=== PATIENT | female | born 1935 | race Caucasian/White ===

== ENCOUNTER 2018-04-20 14:00 | Inpatient (IN) | payer MEDICARE, OTHER ==
[~2018-04-20] VITALS: Ht 149.9 cm; Wt 58.1 kg
[2018-04-20] MEDS ORDERED: Acetaminophen 650 MG SUPP RECTAL ONE (14:15)
[2018-04-20] MEDS ORDERED: Vancomycin 1 GM in NS 275 ML IV ONE (14:15)
--- NOTE | 2018-04-20 14:15 | Emergency Room Report ---
History of Present Illness General Chief Complaint: Altered Level of Consciousness Source: Family Member - daughter MD in [facility], EMS Present Illness HPI The patient has a history of non-Hodgkin's lymphoma and is on chemotherapy. She 's not been taking oral fluids and has been receiving IV fluids at her oncologist office. She received IV fluids and also ceftriaxone today at the oncologist office. Fever 102 last night. According to the daughter the source is presumed to be to the right otitis media. She's been unable to take oral intake today. She has decreased mentation. She's been producing urine and it' s not been cloudy. There is no cough. The patient has a history of hypertension and type 2 diabetes. Headaches treated with Tramadol and morphine 7.5 mg. Had adverse reaction to Dilaudid at [facility]. Allegedly related to lymphoma which is central ([employer]). At [facility], Pseudomonas grew from R ear. Was tx with cephalosporins. Daughter states has had pulmonary nodule on R. She had retropharyngeal radiation therapy at [facility] 2 months ago. Patient unable to answer questions regarding symptoms at this time. Allergies: Coded Allergies: No Known Allergies (Unverified , 04/20/18) Patient History Limited by: medical condition Past Medical History: see triage record, old chart reviewed Past Surgical History: other - PICC line Social History: Denies: smoking, alcohol use, drug use Social History Narrative at [facility] Reviewed Nursing Documentation: PMH: Agreed; PSxH: Agreed Review of Systems All Other Systems: limited Physical Exam Vital Signs Date Time Temp Pulse Resp B/P (MAP) Pulse Ox O2 Delivery O2 Flow Rate FiO2 04/20/18 14:07 104.5 155 30 163/82 98 Room Air 04/20/18 22:47 2.0 100 Sp02 EP Interpretation: reviewed, normal General Appearance: mild distress, Chronically Ill, Stupor Head: normocephalic, atraumatic Eyes: right eye other - patch ENT: dry mucus membranes, other - + gag, cotton R ear canal Respiratory: lungs clear, normal breath sounds, other - tachypnea Cardiovascular #1: tachycardia Cardiovascular #2: 2+ radial (R) - PICC line, 2+ radial (L) Gastrointestinal: non tender, soft, decreased bowel sounds Genitourinary: no CVA tenderness Musculoskeletal: no calf tenderness, pelvis stable Neurologic: no Babinski, motor weakness - generalized, other - stupor Psychiatric: other - stupor Reflexes: 1+ knee (R), 1+ knee (L) Skin: normal color, other - hot Medical Decision Making Diagnostic Impression: Primary Impression: Sepsis Qualified Codes: A41.9 - Sepsis, unspecified organism Additional Impressions: Lymphoma Qualified Codes: C85.90 - Non-Hodgkin lymphoma, unspecified, unspecified site Altered level of consciousness Abnormal CXR ER Course Patient presents with fever and tachycardia and altered level of consciousness. Clinically she is septic at this time we need to determine the source. She is on chemotherapy for lymphoma and therefore that differential is quite broad. She'll be evaluated with blood cultures, lactate, EKG, chest x-ray and labs including lactate. In addition a Li catheter will be passed so we can monitor I's and O's. Tylenol has been ordered and also 30 mg/kg bolus of IV fluids with aggressive hydration after that. One set of blood cultures will be drawn from line. EKG with ST 150. CXR with possible infiltrate L base (daughter said nodule on R ). WBC elevated (was 4.0 two days ago). Mild renal insufficiency. Min elevated BNP. ABG is venous as sat = 98% but by ABG = 70%. Ph is good. No resp distress. As Rocephin given in MD office, will add Vancomycin and Levaquin. 16:50 - sepsis re-evaluation: improved mentation, cap fill better, BP holding well but still tachycardic. When more alert, non-focal neurologic exam. C/O headache and morphine ordered. Continued improvement with defervescence and decreased tachycardia. Admit telemetry, Dr. Chow. Laboratory Tests Test 04/20/18 14:30 04/20/18 15:15 04/20/18 15:31 White Blood Count 12.4 K/UL (4.8-10.8) H Red Blood Count 3.44 M/UL (4.20-5.40) L Hemoglobin 10.6 G/DL (12.0-16.0) L Hematocrit 31.1 % (37.0-47.0) L Mean Corpuscular Volume 90 FL (80-99) Mean Corpuscular Hemoglobin 30.6 PG (27.0-31.0) Mean Corpuscular Hemoglobin Concent 34.0 G/DL (32.0-36.0) Red Cell Distribution Width 13.7 % (11.6-14.8) Platelet Count 188 K/UL (150-450) Mean Platelet Volume 7.1 FL (6.5-10.1) Neutrophils (%) (Auto) % (45.0-75.0) Lymphocytes (%) (Auto) % (20.0-45.0) Monocytes (%) (Auto) % (1.0-10.0) Eosinophils (%) (Auto) % (0.0-3.0) Basophils (%) (Auto) % (0.0-2.0) Differential Total Cells Counted 100 Neutrophils % (Manual) 48 % (45-75) Lymphocytes % (Manual) 5 % (20-45) L Monocytes % (Manual) 9 % (1-10) Eosinophils % (Manual) 1 % (0-3) Basophils % (Manual) 1 % (0-2) Band Neutrophils 36 % (0-8) H Platelet Estimate Adequate Platelet Morphology Normal Red Blood Cell Morphology Normal Prothrombin Time 11.1 SEC (9.30-11.50) Prothrombin Time INR 1.1 (0.9-1.1) PTT 37 SEC (23-33) H Sodium Level 137 MMOL/L (136-145) Potassium Level 3.3 MMOL/L (3.5-5.1) L Chloride Level 101 MMOL/L (98-107) Carbon Dioxide Level 23 MMOL/L (21-32) Anion Gap 14 mmol/L (5-15) Blood Urea Nitrogen 25 mg/dL (7-18) H Creatinine 1.2 MG/DL (0.55-1.30) Estimate Glomerular Filtration Rate mL/min (>60) Glucose Level 179 MG/DL (74-106) H Lactic Acid Level 1.40 mmol/L (0.4-2.0) Calcium Level 9.3 MG/DL (8.5-10.1) Magnesium Level 1.5 MG/DL (1.8-2.4) L Total Bilirubin 0.5 MG/DL (0.2-1.0) Aspartate Amino Transferase (AST) 37 U/L (15-37) Alanine Aminotransferase (ALT) 55 U/L (12-78) Alkaline Phosphatase 434 U/L (46-116) H Total Creatine Kinase 43 U/L (26-308) Troponin I 0.041 ng/mL (0.000-0.056) Pro-B-Type Natriuretic Peptide 4218 pg/mL (0-125) H Total Protein 7.4 G/DL (6.4-8.2) Albumin 2.2 G/DL (3.4-5.0) L Globulin 5.2 g/dL Albumin/Globulin Ratio 0.4 (1.0-2.7) L Urine Color Pale yellow Urine Appearance Clear Urine pH 7 (4.5-8.0) Urine Specific [place] 1.010 (1.005-1.035) Urine Protein 3+ (NEGATIVE) H Urine Glucose (UA) 2+ (NEGATIVE) H Urine Ketones Negative (NEGATIVE) Urine Blood Negative (NEGATIVE) Urine Nitrite Negative (NEGATIVE) Urine Bilirubin Negative (NEGATIVE) Urine Urobilinogen Normal MG/DL (0.0-1.0) Urine Leukocyte Esterase 1+ (NEGATIVE) H Urine RBC 0 /HPF (0 - 2) Urine WBC 5-10 /HPF (0 - 2) H Urine Squamous Epithelial Cells Occasional /LPF Urine Bacteria Occasional /HPF (NONE) Arterial Blood pH 7.427 (7.350-7.450) Arterial Blood Partial Pressure CO2 33.5 mmHg (35.0-45.0) L Arterial Blood Partial Pressure O2 37.1 mmHg (75.0-100.0) Arterial Blood HCO3 21.3 mmol/L (22.0-26.0) L Arterial Blood Oxygen Saturation 70.2 % (95-100) *L Arterial Blood Base Excess -2.2 (-2-2) L Kevin Test Positive Microbiology Date/Time Source Procedure Growth Status 04/20/18 15:15 Nasal Nares Influenza Types A,B Antigen (REMY) - Final Complete EKG Diagnostic Results Rate: tachycardiac ST Segments: no acute changes Rhythm Strip Diag. Results EP Interpretation: yes Rhythm: no PVC's, no ectopy, other - ST Chest X-Ray Diagnostic Results Chest X-Ray Diagnostic Results : Chest X-Ray Ordered: Yes # of Views/Limited/Complete: 1 View Indication: Other EP Interpretation: Yes Interpretation: no effusion, no pneumothorax, other - PICC, possible infiltrate vs effusion L base Impression: Other Electronically Signed by: Electronically signed by Demarco Booth MD Last Vital Signs Date Time Temp Pulse Resp B/P (MAP) Pulse Ox O2 Delivery O2 Flow Rate FiO2 04/21/18 00:33 117 116/66 04/21/18 00:00 98.9 18 99 04/20/18 22:47 Nasal Cannula 2.0 100 Status: improved Disposition: ADMITTED INPATIENT Condition: Serious Demarco Booth MD Apr 20, 2018 14:15
[2018-04-20] MEDS ORDERED: ERYTHROMYCIN3.5 GM BOTH EYES (14:51)
[2018-04-20] MEDS ORDERED: CALCIUM 600 +1 EAC6 PO (14:51)
[2018-04-20] MEDS ORDERED: HYDRALAZINE HCL25 M1 ORAL (14:51)
[2018-04-20] MEDS ORDERED: MULTIVITAMINS1 EAC2 ORAL (14:51)
[2018-04-20] MEDS ORDERED: TYLENOL EXTRA500 MG ORAL (14:51)
[2018-04-20] MEDS ORDERED: FERROUS SULFAT325 MG ORAL (14:51)
[2018-04-20] MEDS ORDERED: CEFEPIME-D2 GM/50 ML IVPB (14:51)
[2018-04-20] MEDS ORDERED: ACYCLOVIR400 MG ORAL (14:51)
[2018-04-20] MEDS ORDERED: METOPROLOL TART25 MG ORAL ×2 (14:51→19:19)
[2018-04-20] MEDS ORDERED: METFORMIN HCL500 M1 ORAL (14:51)
[2018-04-20] MEDS ORDERED: DICLOFENAC SODI50 MG ORAL (14:51)
[2018-04-20 15:00] VITALS: BP 128/65
[2018-04-20 15:04] LABS: HEMATOCRIT 31.1 % (37.0-47.0); HEMOGLOBIN 10.6 G/DL (12.0-16.0); MEAN CORPUSCULAR VOLUME 90 FL (80-99); PLATELET COUNT 188 K/UL (150-450); RED BLOOD COUNT 3.44 M/UL (4.20-5.40); RED CELL DISTRIBUTION WIDTH 13.7 % (11.6-14.8); WHITE BLOOD COUNT 12.4 K/UL (4.8-10.8)
[2018-04-20 15:12] LABS: INR 1.1 (0.9-1.1)
[2018-04-20 15:21] LABS: ANION GAP 14 mmol/L (5-15); BLOOD UREA NITROGEN 25 mg/dL (7-18); CALCIUM 9.3 MG/DL (8.5-10.1); CARBON DIOXIDE 23 MMOL/L (21-32); CHLORIDE 101 MMOL/L (98-107); CREATININE 1.2 MG/DL (0.55-1.30); POTASSIUM 3.3 MMOL/L (3.5-5.1); SODIUM 137 MMOL/L (136-145)
[2018-04-20 15:33] LABS: ALANINE AMINOTRANSFERASE 55 U/L (12-78); ALBUMIN 2.2 G/DL (3.4-5.0); ALBUMIN/GLOBULIN RATIO 0.4 (1.0-2.7); ALKALINE PHOSPHATASE 434 U/L (46-116); ASPARTATE AMINO TRANSFERASE 37 U/L (15-37); BILIRUBIN,TOTAL 0.5 MG/DL (0.2-1.0); CREATINE KINASE 43 U/L (26-308)
[2018-04-20 15:33] LABS: APPEARANCE,URINE CLEAR; BILIRUBIN, URINE NEGATIVE (NEGATIVE); COLOR,URINE PALE YELLOW; GLUCOSE, URINE (UA) 2+ (NEGATIVE); KETONES,URINE NEGATIVE (NEGATIVE); LEUKOCYTE ESTERASE ,URINE 1+ (NEGATIVE); NITRITE,URINE NEGATIVE (NEGATIVE); PH,URINE 7 (4.5-8.0); PROTEIN,URINE 3+ (NEGATIVE); UROBILINOGEN,URINE NORMAL MG/DL (0.0-1.0)
--- NOTE | 2018-04-20 16:06 | Diagnostic Imaging Report ---
Indication: Fevers Technique: One view of the chest Comparison: Findings: There is a right arm PICC. There is atelectasis at the left lung base. No acute infiltrates. No effusions. There is evidence of multiple prior surgeries, including right-sided rotator cuff repair, left axillary node dissection, median sternotomy, and cholecystectomy. There are degenerative changes of the left shoulder Impression: Left basilar atelectasis No acute process otherwise PICC Incidental findings as noted
[2018-04-20 17:00] VITALS: BP 114/58
[2018-04-20 18:19] VITALS: BP 127/57
[2018-04-20] MEDS ORDERED: Nitroglycerin Subl 0.4mg tab SL PRN (19:00)
[2018-04-20] MEDS ORDERED: HydrALAZINE 25mg tab ORAL PRN (19:00)
[2018-04-20] MEDS ORDERED: Albuterol/Ipratropium 3ml neb HHN PRN (19:00)
[2018-04-20] MEDS ORDERED: Morphine Sulfate 2mg/ml Inj IVP PRN (19:00)
[2018-04-20] MEDS ORDERED: Miralax 17gm pkt ORAL PRN (19:00)
[2018-04-20] MEDS ORDERED: ACETAMINOP160 MG/5 M ORAL (19:16)
[2018-04-20] MEDS ORDERED: ERYTHROMYCIN3.5 GM RIGHT EYE (19:19)
[2018-04-20] MEDS ORDERED: MAGNESIUM250 M3 PO (19:27)
[2018-04-20] MEDS ORDERED: AMLODIPINE BESY10 MG ORAL (19:27)
[2018-04-20] MEDS ORDERED: OFLOXACIN5 ML RIGHT EAR (19:27)
[2018-04-20] MEDS ORDERED: ZANTAC150 MG ORAL (19:27)
[2018-04-20] MEDS ORDERED: MILK OF MA400 MG/51 ORAL (19:27)
[2018-04-20] MEDS ORDERED: MORPHINE IR15 MG ORAL (19:27)
[2018-04-20] MEDS ORDERED: TRAMADOL HCL50 MG ORAL (19:27)
[2018-04-20] MEDS ORDERED: PREDNISONE5 M3 PO (19:27)
[2018-04-20] MEDS ORDERED: SIMVASTATIN40 MG ORAL (19:27)
[2018-04-20] MEDS ORDERED: NYSTATIN100000 UN1 ORAL (19:27)
[2018-04-20] MEDS ORDERED: MORPHINE S10 MG/5 ML ORAL (19:30)
[2018-04-20] MEDS ORDERED: Morphine Sulfate 2mg/ml Inj IVP ONE (21:45)
[2018-04-20 22:30] VITALS: BP 140/75
[2018-04-20] MEDS: NovoLOG Insulin Flexpen SUBQ SCH (22:30)
[2018-04-20] MEDS: Cefepime HCl 2 GM in D5W 110 ML IV SCH (22:30)
[2018-04-20] MEDS ORDERED: Metoprolol Tartrate 10 MG in D5W 55 ML IVPB ONE (23:00)
--- NOTE | 2018-04-20 23:10 | History & Physical ---
History and Physical History & Physicial Last 24 Hour Vital Signs Date Time Temp Pulse Resp B/P (MAP) Pulse Ox O2 Delivery O2 Flow Rate FiO2 04/20/18 18:19 133 24 127/57 99 Room Air 04/20/18 17:00 129 26 114/58 98 Room Air 04/20/18 16:34 100.9 04/20/18 15:28 100.9 04/20/18 15:00 128 30 128/65 98 Room Air 04/20/18 14:15 104.6 04/20/18 14:15 155 30 Room Air 04/20/18 14:07 104.5 155 30 163/82 98 Room Air Jaxon Chow MD Apr 20, 2018 23:10
[2018-04-21] VITALS: BP 116/66
[2018-04-21] MEDS ORDERED: Vancomycin 1 GM in D5W 275 ML IVPB SCH (00:30)
[2018-04-21] MEDS: Heparin 5000 units/ml inj SUBQ SCH ×2 (00:32→08:45)
[2018-04-21] MEDS: Cefepime HCl 2 GM in D5W 110 ML IV SCH (00:33)
[2018-04-21 04:00] VITALS: BP 132/65
--- NOTE | 2018-04-21 04:01 | History and Physical Report ---
DATE OF ADMISSION: 04/20/2018 CHIEF COMPLAINT: Fever and chills. 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 intake, fever, and chills. The patient went to see oncologist, Dr. Adler and was noted to be very dehydrated, IV hydration was started. A dose of ceftriaxone was given. While the patient was in the office, she started having a fever of 102 degrees and chills, and subsequently, the patient was transferred to the hospital. Shortly after initial evaluation in the emergency, the patient was admitted to hospital with sepsis. PAST MEDICAL HISTORY AND PAST SURGICAL HISTORY: As above. History of diabetes type 2; hypertension; non-Hodgkin lymphoma, status post three rounds of chemotherapy and one round of radiation therapy; history of right laryngeal lymph nodes, status post resection with a history of Hilario palsy; recent Pseudomonas otitis media; viral infection; and aortic wall replacement in 2010. The patient has a history of right upper extremity PAS port placement. MEDICATIONS AT HOME: Please refer to medication reconciliation. ALLERGIES: No known drug allergies. SOCIAL HISTORY: No smoking, alcohol, or drugs. FAMILY HISTORY: Noncontributory. REVIEW OF SYSTEMS: Mostly as above. Complained about fever, chills, lack of poor appetite, weakness, and fatigue. Denies any double vision. Denies any fall or head trauma. PHYSICAL EXAMINATION: VITAL SIGNS: On admission from the ER is temperature 100.9 degrees, pulse of 128, respirations 30, and blood pressure 128/65, repeat one was 127/57. GENERAL: The patient is cachectic. The patient has chronic illness. HEAD AND NECK: Pupils are reactive to light. Right side of face, she has Hilario palsy. NECK: Supple. No JVD. LUNGS: Good air entry. Poor inspiratory effort. No wheeze or rhonchi. HEART: S1 and S2. Tachycardic. ABDOMEN: Soft, nondistended, and nontender. Positive bowel sounds. EXTREMITIES: No cyanosis, clubbing, or edema. Right upper extremity PAS port was noted. NEUROLOGIC: Cranial nerves II through XII grossly intact. The patient is moving all extremities spontaneously slowly. RECTAL: Refused and deferred. GENITOURINARY: Refused and deferred. PSYCHIATRIC: Mood and affect were not able to obtain due to the patient's status. LABORATORY AND IMAGING ON ADMISSION: WBC of 12, hemoglobin 10.6, hematocrit 31, and platelets 188,000. Sodium 137, potassium 3.3, chloride 101, bicarbonate 23, BUN 25, creatinine 1.2, and glucose is 179. Lactic acid is 1.4. Magnesium is 1.5. Alkaline phosphatase is 434. Troponin 0.041. PT of 11, INR 1.1, and PTT of 27. ABG, pH of 7.42, pCO2 of 33, pO2 of 21, and saturating 70%. Urinalysis, +3 protein, +2 glucose, +1 leukocytes, occasional squamous epithelial, and 5 to 10 rbc. Rapid influenza A and B is negative. The patient's chest x-ray noted to have the left basilar atelectasis. No acute process otherwise. PICC line was noted. Atelectasis in left lung. EKG was noted to be supraventricular tachycardia and ventricular rate of 151 with occasional PVCs. No ST-elevation was noted. Nonspecific T-wave abnormality. ASSESSMENT: 1. Sepsis. 2. Dehydration. 3. Tachycardia. 4. Non-Hodgkin lymphoma. 5. Diabetes type 2. 6. Hypertension. 7. Anemia. 8. History of right-sided Hilario palsy. PLAN: Admit the patient to telemetry. We will follow up with the laboratory, culture, and broad-spectrum antibiotic with vancomycin and cefepime. Discussion with the daughter extensively at bedside. We will follow up with [facility] records. Code status, Full Code. DVT prophylaxis. Heparin, subcu. Follow up with Dr. Negron, Pulmonary, Critical Care, and Infectious Disease consultation in the morning. Jaxon Chow M.D. DR: SEBASTIEN JOB#: [id number] CC:
[2018-04-21 05:25] LABS: BASOPHILS % (AUTO) 2.6 % (0.0-2.0); EOSINOPHILS % (AUTO) 0.1 % (0.0-3.0); HEMATOCRIT 26.4 % (37.0-47.0); HEMOGLOBIN 8.9 G/DL (12.0-16.0); LYMPHOCYTES % (AUTO) 6.7 % (20.0-45.0); MEAN CORPUSCULAR VOLUME 91 FL (80-99); MONOCYTES % (AUTO) 18.2 % (1.0-10.0); NEUTROPHILS % (AUTO) 72.4 % (45.0-75.0); PLATELET COUNT 137 K/UL (150-450); WHITE BLOOD COUNT 13.1 K/UL (4.8-10.8)
[2018-04-21 06:05] LABS: ALANINE AMINOTRANSFERASE 40 U/L (12-78); ALBUMIN 1.7 G/DL (3.4-5.0); ALBUMIN/GLOBULIN RATIO 0.4 (1.0-2.7); ALKALINE PHOSPHATASE 316 U/L (46-116); ANION GAP 12 mmol/L (5-15); ASPARTATE AMINO TRANSFERASE 22 U/L (15-37); BILIRUBIN,TOTAL 0.4 MG/DL (0.2-1.0); BLOOD UREA NITROGEN 21 mg/dL (7-18); CALCIUM 8.2 MG/DL (8.5-10.1); CARBON DIOXIDE 20 MMOL/L (21-32); CHLORIDE 106 MMOL/L (98-107); CREATININE 1.1 MG/DL (0.55-1.30); POTASSIUM 2.8 MMOL/L (3.5-5.1); SODIUM 137 MMOL/L (136-145)
[2018-04-21] MEDS: NovoLOG Insulin Flexpen SUBQ SCH ×6 (06:26→21:00)
[2018-04-21 06:42] LABS: PHOSPHORUS 2.9 MG/DL (2.5-4.9)
[2018-04-21 08:00] VITALS: BP 134/63
[2018-04-21] MEDS ORDERED: Metoprolol 25mg tab ORAL SCH (09:00)
--- NOTE | 2018-04-21 11:10 | Consultation ---
History of Present Illness General Date patient seen: Apr 21, 2018 Chief Complaint: Altered Level of Consciousness Present Illness HPI 83 year old lady with history of hypertension and type 2 diabetes, CAD, non- Hodgkin's lymphoma on chemotherapy and retropharyngeal radiation therapy at [facility] 2 months ago, presented to ER with Fever of 102 last night. According to the daughter the source is presumed to be to the right otitis media. She's been unable to take anything oral. She has decreased mentation. She's been producing urine and it's not been cloudy. There is no cough. Patient was hypotensive and was started on IV abx and IV fluid and transferred to [facility]. Allergies: Coded Allergies: No Known Allergies (Unverified , 04/20/18) Medication History Scheduled Acyclovir* (Acyclovir*), 400 MG ORAL DAILY, (Reported) Erythromycin Base (Erythromycin*), 1 APPLIC RIGHT EYE DAILY, (Reported) Magnesium (Magnesium), 250 MG PO DAILY, (Reported) Metformin Hcl* (Metformin Hcl*), 500 MG ORAL TWICE A DAY, (Reported) Nystatin* (Nystatin*), 4 ML ORAL TID, (Reported) Ofloxacin (Ofloxacin), 2 DROP RIGHT EAR DAILY, (Reported) Prednisone (Prednisone), 5 MG PO DAILY, (Reported) Ranitidine Hcl* (Zantac*), 300 MG ORAL QPM, (Reported) Simvastatin (Zocor), 40 MG ORAL BEDTIME, (Reported) Scheduled PRN Acetaminophen 160MG/5ML* (Acetaminophen*), 500 MG ORAL Q6HR PRN for Mild Pain ( Pain Scale 1-3), (Reported) Amlodipine Besylate* (Amlodipine Besylate*), 10 MG ORAL DAILY PRN for BP>140, ( Reported) Diclofenac Sod* (Voltaren*), 50 MG ORAL THREE TIMES A DAY PRN for For Pain, ( Reported) Hydralazine Hcl* (Hydralazine Hcl*), 25 MG ORAL EVERY 8 HOURS PRN for For High Blood Pressure, (Reported) Magnesium Hydroxide* (Milk Of Magnesia*), 30 ML ORAL DAILY PRN for Constipation, (Reported) Metoprolol Tartrate* (Metoprolol Tartrate*), 12.5 MG ORAL TID PRN for pulse>110, (Reported) Morphine 10mg/5ml Oral Soln* (Morphine 10mg/5ml Oral Soln*), 7.5 MG ORAL Q6HR PRN for For Pain, (Reported) Morphine HCl (Morphine Sulfate ER), 7.5 MG ORAL Q6H PRN for Severe Pain (Pain Scale 7-10), (Reported) Tramadol Hcl* (Ultram*), 50 MG ORAL Q6H PRN for Moderate Pain (Pain Scale 4-6), (Reported) Miscellaneous Medications Calcium Carbonate/Vitamin D3 (Calcium 600 + Vit D 400 Tablet), 1 EACH PO, ( Reported) Discontinued Medications Cefepime Hcl/D5w (Cefepime-Dextrose 2 Gm/50 Ml), 2 GM IVPB Q24H, (Reported) Discontinued Reason: MD discontinued med Ferrous Sulfate* (Ferrous Sulfate*), 325 MG ORAL DAILY, (Reported) Discontinued Reason: Pt stopped taking med Multivitamins* (Multivitamins*), 1 TAB ORAL DAILY, (Reported) Discontinued Reason: Pt stopped taking med Patient History Healthcare decision maker KYARA ESPINAL Resuscitation status Full Code Advanced Directive on File No Past Medical/Surgical History Past Medical/Surgical History: (1) CAD (coronary artery disease) (2) Diabetes mellitus (3) History of hypertension Review of Systems Constitutional: Reports: malaise, weakness Physical Exam General Appearance: cachetic Lines, tubes and drains: peripheral HEENT: normocephalic, atraumatic Neck: non-tender, normal alignment Respiratory/Chest: chest wall non-tender, lungs clear Abdomen: normal bowel sounds, non tender Genitourinary/Rectal: normal rectal exam, heme negative stool Extremities: normal range of motion Skin Exam: normal pigmentation Last 24 Hour Vital Signs Date Time Temp Pulse Resp B/P (MAP) Pulse Ox O2 Delivery O2 Flow Rate FiO2 04/21/18 08:46 104 134/63 04/21/18 08:00 98.2 20 134/63 (86) 96 04/21/18 08:00 109 04/21/18 04:00 96 04/21/18 04:00 Room Air 04/21/18 04:00 99.2 112 16 132/65 (87) 98 04/21/18 00:33 117 116/66 04/21/18 00:00 120 04/21/18 00:00 98.9 117 18 116/66 (83) 99 04/20/18 23:18 124 04/20/18 22:47 129 28 113/56 99 Nasal Cannula 2.0 100 04/20/18 22:30 99.1 131 20 140/75 (96) 99 04/20/18 22:30 Room Air 04/20/18 18:19 133 24 127/57 99 Room Air 04/20/18 17:00 129 26 114/58 98 Room Air 04/20/18 16:34 100.9 04/20/18 15:28 100.9 04/20/18 15:00 128 30 128/65 98 Room Air 04/20/18 14:15 104.6 04/20/18 14:15 155 30 Room Air 04/20/18 14:07 104.5 155 30 163/82 98 Room Air Intake and Output 04/20/18 04/21/18 19:00 07:00 Intake Total 2425 ml 1385.0 ml Output Total 150 ml Balance 2425 ml 1235.0 ml Intake Oral 0 ml IV Total 2425 ml 1385.0 ml Output Urine Total 150 ml # Voids 1 2 # Bowel Movements 1 Laboratory Tests Test 04/20/18 14:30 04/20/18 15:15 04/20/18 15:31 04/21/18 03:25 White Blood Count 12.4 K/UL (4.8-10.8) H 13.1 K/UL (4.8-10.8) H Red Blood Count 3.44 M/UL (4.20-5.40) L 2.90 M/UL (4.20-5.40) L Hemoglobin 10.6 G/DL (12.0-16.0) L 8.9 G/DL (12.0-16.0) L Hematocrit 31.1 % (37.0-47.0) L 26.4 % (37.0-47.0) L Mean Corpuscular Volume 90 FL (80-99) 91 FL (80-99) Mean Corpuscular Hemoglobin 30.6 PG (27.0-31.0) 30.9 PG (27.0-31.0) Mean Corpuscular Hemoglobin Concent 34.0 G/DL (32.0-36.0) 33.9 G/DL (32.0-36.0) Red Cell Distribution Width 13.7 % (11.6-14.8) 14.0 % (11.6-14.8) Platelet Count 188 K/UL (150-450) 137 K/UL (150-450) L Mean Platelet Volume 7.1 FL (6.5-10.1) 8.5 FL (6.5-10.1) Neutrophils (%) (Auto) % (45.0-75.0) 72.4 % (45.0-75.0) Lymphocytes (%) (Auto) % (20.0-45.0) 6.7 % (20.0-45.0) L Monocytes (%) (Auto) % (1.0-10.0) 18.2 % (1.0-10.0) H Eosinophils (%) (Auto) % (0.0-3.0) 0.1 % (0.0-3.0) Basophils (%) (Auto) % (0.0-2.0) 2.6 % (0.0-2.0) H Differential Total Cells Counted 100 Neutrophils % (Manual) 48 % (45-75) Lymphocytes % (Manual) 5 % (20-45) L Monocytes % (Manual) 9 % (1-10) Eosinophils % (Manual) 1 % (0-3) Basophils % (Manual) 1 % (0-2) Band Neutrophils 36 % (0-8) H Platelet Estimate Adequate Platelet Morphology Normal Red Blood Cell Morphology Normal Prothrombin Time 11.1 SEC (9.30-11.50) Prothromb Time International Ratio 1.1 (0.9-1.1) Activated Partial Thromboplast Time 37 SEC (23-33) H Sodium Level 137 MMOL/L (136-145) 137 MMOL/L (136-145) Potassium Level 3.3 MMOL/L (3.5-5.1) L 2.8 MMOL/L (3.5-5.1) L Chloride Level 101 MMOL/L (98-107) 106 MMOL/L (98-107) Carbon Dioxide Level 23 MMOL/L (21-32) 20 MMOL/L (21-32) L Anion Gap 14 mmol/L (5-15) 12 mmol/L (5-15) Blood Urea Nitrogen 25 mg/dL (7-18) H 21 mg/dL (7-18) H Creatinine 1.2 MG/DL (0.55-1.30) 1.1 MG/DL (0.55-1.30) Estimat Glomerular Filtration Rate mL/min (>60) mL/min (>60) Glucose Level 179 MG/DL (74-106) H 154 MG/DL (74-106) H Lactic Acid Level 1.40 mmol/L (0.4-2.0) Calcium Level 9.3 MG/DL (8.5-10.1) 8.2 MG/DL (8.5-10.1) L Magnesium Level 1.5 MG/DL (1.8-2.4) L 1.3 MG/DL (1.8-2.4) L Total Bilirubin 0.5 MG/DL (0.2-1.0) 0.4 MG/DL (0.2-1.0) Aspartate Amino Transf (AST/SGOT) 37 U/L (15-37) 22 U/L (15-37) Alanine Aminotransferase (ALT/SGPT) 55 U/L (12-78) 40 U/L (12-78) Alkaline Phosphatase 434 U/L (46-116) H 316 U/L (46-116) H Total Creatine Kinase 43 U/L (26-308) Troponin I 0.041 ng/mL (0.000-0.056) 0.068 ng/mL (0.000-0.056) Pro-B-Type Natriuretic Peptide 4218 pg/mL (0-125) H Total Protein 7.4 G/DL (6.4-8.2) 6.0 G/DL (6.4-8.2) L Albumin 2.2 G/DL (3.4-5.0) L 1.7 G/DL (3.4-5.0) L Globulin 5.2 g/dL 4.3 g/dL Albumin/Globulin Ratio 0.4 (1.0-2.7) L 0.4 (1.0-2.7) L Urine Color Pale yellow Urine Appearance Clear Urine pH 7 (4.5-8.0) Urine Specific [place] 1.010 (1.005-1.035) Urine Protein 3+ (NEGATIVE) H Urine Glucose (UA) 2+ (NEGATIVE) H Urine Ketones Negative (NEGATIVE) Urine Blood Negative (NEGATIVE) Urine Nitrite Negative (NEGATIVE) Urine Bilirubin Negative (NEGATIVE) Urine Urobilinogen Normal MG/DL (0.0-1.0) Urine Leukocyte Esterase 1+ (NEGATIVE) H Urine RBC 0 /HPF (0 - 2) Urine WBC 5-10 /HPF (0 - 2) H Urine Squamous Epithelial Cells Occasional /LPF Urine Bacteria Occasional /HPF (NONE) Arterial Blood pH 7.427 (7.350-7.450) Arterial Blood Partial Pressure CO2 33.5 mmHg (35.0-45.0) L Arterial Blood Partial Pressure O2 37.1 mmHg (75.0-100.0) Arterial Blood HCO3 21.3 mmol/L (22.0-26.0) L Arterial Blood Oxygen Saturation 70.2 % (95-100) *L Arterial Blood Base Excess -2.2 (-2-2) L Kevin Test Positive Phosphorus Level 2.9 MG/DL (2.5-4.9) Microbiology Date/Time Source Procedure Growth Status 04/20/18 15:15 Nasal Nares Influenza Types A,B Antigen (REMY) - Final Complete 04/20/18 15:15 Indwelling Cath Urine Culture - Preliminary NO GROWTH Resulted 04/20/18 16:20 Ear Right Ear Culture - Preliminary NO GROWTH AFTER 48 HOURS Resulted 04/20/18 15:00 Rectum VRE Culture Pending Resulted 04/20/18 15:00 Rectum - Preliminary Resulted Height (Feet): 4 Height (Inches): 11.00 Weight (Pounds): 130 Medications Current Medications Medications (Trade) Dose Ordered Sig/Ibrahima Route PRN Reason Start Time Stop Time Status Last Admin Dose Admin Acetaminophen (Tylenol) 650 mg Q4H PRN ORAL fever (temp>100.5 F) 04/20/18 19:00 05/20/18 18:59 Albuterol/ Ipratropium (Albuterol/ Ipratropium) 3 ml Q4H PRN HHN Shortness of Breath 04/20/18 19:00 04/25/18 18:59 Cefepime HCl 2 gm/ Dextrose 110 ml @ 220 mls/hr EVERY 12 HOURS IV 04/20/18 21:00 04/27/18 20:59 04/21/18 00:33 Dextrose (Dextrose 50%) 25 ml Q30M PRN IV Hypoglycemia 04/20/18 19:15 05/20/18 19:00 Dextrose (Dextrose 50%) 50 ml Q30M PRN IV hypoglycemia 04/20/18 19:15 05/20/18 19:14 Hydralazine HCl (Apresoline) 25 mg Q8H PRN ORAL For High Blood Pressure 04/20/18 19:00 05/20/18 18:59 Insulin Aspart (NovoLOG) BEFORE MEALS AND HS SUBQ 04/20/18 21:00 05/20/18 20:59 Insulin Aspart (NovoLOG) BEFORE MEALS AND HS SUBQ 04/21/18 06:30 05/21/18 06:29 Metoprolol Tartrate (Lopressor) 25 mg Q12HR ORAL 04/21/18 09:00 05/21/18 08:59 Morphine Sulfate (Morphine Sulfate) 2 mg Q4H PRN IVP Moderate Pain (Pain Scale 4-6) 04/20/18 19:00 04/27/18 18:59 Nitroglycerin (Ntg) 0.4 mg Q5M PRN SL Prn Chest Pain 04/20/18 19:00 05/20/18 18:59 Ondansetron HCl (Zofran) 4 mg Q6H PRN IVP Nausea & Vomiting 04/20/18 19:00 05/20/18 18:59 Polyethylene Glycol (Miralax) 17 gm DAILYPRN PRN ORAL Constipation 04/20/18 19:00 05/20/18 18:59 Potassium Chloride 100 ml @ 100 mls/hr Q1H IVPB 04/21/18 09:00 04/21/18 12:59 04/21/18 10:32 Sodium Chloride 1,000 ml @ 300 mls/hr Q3H20M IV 04/20/18 14:15 05/20/18 14:14 04/20/18 17:57 Temazepam (Restoril) 15 mg HSPRN PRN ORAL Insomnia 04/20/18 19:00 04/27/18 18:59 Vancomycin HCl (Vanco rx to dose) 1 ea DAILY PRN MISC PER PHARM 04/21/18 07:15 05/21/18 07:14 Vancomycin/Sodium Chloride 250 ml @ 166.667 mls/hr Q24H IVPB 04/22/18 02:00 04/27/18 01:59 Assessment/Plan Problem List: (1) Septic shock ICD Codes: A41.9 - Sepsis, unspecified organism; R65.21 - Severe sepsis with septic shock SNOMED: 05104955 (2) Non-Hodgkin lymphoma ICD Codes: C85.90 - Non-Hodgkin lymphoma, unspecified, unspecified site SNOMED: 145493234 (3) History of hypertension ICD Codes: Z86.79 - Personal history of other diseases of the circulatory system SNOMED: 078753042 (4) CAD (coronary artery disease) ICD Codes: I25.10 - Atherosclerotic heart disease of [place] coronary artery without angina pectoris SNOMED: 56613516 (5) Diabetes mellitus ICD Codes: E11.9 - Type 2 diabetes mellitus without complications SNOMED: 84684859 Assessment/Plan IV fluids IV abx bose culture ID evaluation sliding scale K supplement dvt prophylaxis echo cardio to see. Ge Negron MD Apr 21, 2018 11:10
[2018-04-21 12:00] VITALS: BP 149/73
--- NOTE | 2018-04-21 13:35 | Consultation ---
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 Upon admission patient was hypotensive and admitted to [facility]; BP responded with IVFs. Day of admission patient was seen by oncologist, given Ceftriaxone and also reported + blood culture. No cough After receiving 2st chemo patietn then had complication with Pseudomonas otitis media and received 3 weeks of IV Cefepime (end date 03/06) 3rd chemo was received on 03/11 and patient was admitted to [facility] from 03/29- for viral URI. 2 days prior to admission, pt visited his ENT doctor and was noticee had increased discharge from R ear and Rx ofloxacin 0.3% bid for 7 days; patient only took one day. . Allergies: Coded Allergies: No Known Allergies (Unverified , 04/20/18) Medication History Scheduled Acyclovir* (Acyclovir*), 400 MG ORAL DAILY, (Reported) Erythromycin Base (Erythromycin*), 1 APPLIC RIGHT EYE DAILY, (Reported) Magnesium (Magnesium), 250 MG PO DAILY, (Reported) Metformin Hcl* (Metformin Hcl*), 500 MG ORAL TWICE A DAY, (Reported) Nystatin* (Nystatin*), 4 ML ORAL TID, (Reported) Ofloxacin (Ofloxacin), 2 DROP RIGHT EAR DAILY, (Reported) Prednisone (Prednisone), 5 MG PO DAILY, (Reported) Ranitidine Hcl* (Zantac*), 300 MG ORAL QPM, (Reported) Simvastatin (Zocor), 40 MG ORAL BEDTIME, (Reported) Scheduled PRN Acetaminophen 160MG/5ML* (Acetaminophen*), 500 MG ORAL Q6HR PRN for Mild Pain ( Pain Scale 1-3), (Reported) Amlodipine Besylate* (Amlodipine Besylate*), 10 MG ORAL DAILY PRN for BP>140, ( Reported) Diclofenac Sod* (Voltaren*), 50 MG ORAL THREE TIMES A DAY PRN for For Pain, ( Reported) Hydralazine Hcl* (Hydralazine Hcl*), 25 MG ORAL EVERY 8 HOURS PRN for For High Blood Pressure, (Reported) Magnesium Hydroxide* (Milk Of Magnesia*), 30 ML ORAL DAILY PRN for Constipation, (Reported) Metoprolol Tartrate* (Metoprolol Tartrate*), 12.5 MG ORAL TID PRN for pulse>110, (Reported) Morphine 10mg/5ml Oral Soln* (Morphine 10mg/5ml Oral Soln*), 7.5 MG ORAL Q6HR PRN for For Pain, (Reported) Morphine HCl (Morphine Sulfate ER), 7.5 MG ORAL Q6H PRN for Severe Pain (Pain Scale 7-10), (Reported) Tramadol Hcl* (Ultram*), 50 MG ORAL Q6H PRN for Moderate Pain (Pain Scale 4-6), (Reported) Miscellaneous Medications Calcium Carbonate/Vitamin D3 (Calcium 600 + Vit D 400 Tablet), 1 EACH PO, ( Reported) Discontinued Medications Cefepime Hcl/D5w (Cefepime-Dextrose 2 Gm/50 Ml), 2 GM IVPB Q24H, (Reported) Discontinued Reason: MD discontinued med Ferrous Sulfate* (Ferrous Sulfate*), 325 MG ORAL DAILY, (Reported) Discontinued Reason: Pt stopped taking med Multivitamins* (Multivitamins*), 1 TAB ORAL DAILY, (Reported) Discontinued Reason: Pt stopped taking med Patient History Healthcare decision maker KYARA ESPINAL Resuscitation status Full Code Advanced Directive on File No Patient History Narrative Pmhx: as above Shx: No smoking, alcohol, or drugs. Fhx: non contributory Review of Systems All Other Systems: negative except mentioned in HPI Physical Exam Physical Exam Narrative GENERAL: The patient is cachectic. The patient has chronic illness. HEAD AND NECK: Pupils are reactive to light. Right side of face, she has Hilario palsy. R ear with minimal yellowish drainage NECK: Supple. No JVD. LUNGS: Good air entry. Poor inspiratory effort. No wheeze or rhonchi. HEART: S1 and S2. Tachycardic. ABDOMEN: Soft, nondistended, and nontender. Positive bowel sounds. EXTREMITIES: No cyanosis, clubbing, or edema. Right upper extremity PAS port was noted. NEUROLOGIC: Cranial nerves II through XII grossly intact. The patient is moving all extremities spontaneously slowly. Last 24 Hour Vital Signs Date Time Temp Pulse Resp B/P (MAP) Pulse Ox O2 Delivery O2 Flow Rate FiO2 04/21/18 12:00 Room Air 04/21/18 12:00 98.4 116 20 149/73 (98) 96 04/21/18 11:52 116 04/21/18 08:46 104 134/63 04/21/18 08:00 98.2 20 134/63 (86) 96 04/21/18 08:00 109 04/21/18 08:00 Room Air 04/21/18 04:00 96 04/21/18 04:00 Room Air 04/21/18 04:00 99.2 112 16 132/65 (87) 98 04/21/18 00:33 117 116/66 04/21/18 00:00 120 04/21/18 00:00 98.9 117 18 116/66 (83) 99 04/20/18 23:18 124 04/20/18 22:47 129 28 113/56 99 Nasal Cannula 2.0 100 04/20/18 22:30 99.1 131 20 140/75 (96) 99 04/20/18 22:30 Room Air 04/20/18 18:19 133 24 127/57 99 Room Air 04/20/18 17:00 129 26 114/58 98 Room Air 04/20/18 16:34 100.9 04/20/18 15:28 100.9 04/20/18 15:00 128 30 128/65 98 Room Air 04/20/18 14:15 104.6 04/20/18 14:15 155 30 Room Air 04/20/18 14:07 104.5 155 30 163/82 98 Room Air Intake and Output 04/20/18 04/21/18 19:00 07:00 Intake Total 2425 ml 1385.0 ml Output Total 150 ml Balance 2425 ml 1235.0 ml Intake Oral 0 ml IV Total 2425 ml 1385.0 ml Output Urine Total 150 ml # Voids 1 2 # Bowel Movements 1 Laboratory Tests Test 04/20/18 14:30 04/20/18 15:15 04/20/18 15:31 04/21/18 03:25 White Blood Count 12.4 K/UL (4.8-10.8) H 13.1 K/UL (4.8-10.8) H Red Blood Count 3.44 M/UL (4.20-5.40) L 2.90 M/UL (4.20-5.40) L Hemoglobin 10.6 G/DL (12.0-16.0) L 8.9 G/DL (12.0-16.0) L Hematocrit 31.1 % (37.0-47.0) L 26.4 % (37.0-47.0) L Mean Corpuscular Volume 90 FL (80-99) 91 FL (80-99) Mean Corpuscular Hemoglobin 30.6 PG (27.0-31.0) 30.9 PG (27.0-31.0) Mean Corpuscular Hemoglobin Concent 34.0 G/DL (32.0-36.0) 33.9 G/DL (32.0-36.0) Red Cell Distribution Width 13.7 % (11.6-14.8) 14.0 % (11.6-14.8) Platelet Count 188 K/UL (150-450) 137 K/UL (150-450) L Mean Platelet Volume 7.1 FL (6.5-10.1) 8.5 FL (6.5-10.1) Neutrophils (%) (Auto) % (45.0-75.0) 72.4 % (45.0-75.0) Lymphocytes (%) (Auto) % (20.0-45.0) 6.7 % (20.0-45.0) L Monocytes (%) (Auto) % (1.0-10.0) 18.2 % (1.0-10.0) H Eosinophils (%) (Auto) % (0.0-3.0) 0.1 % (0.0-3.0) Basophils (%) (Auto) % (0.0-2.0) 2.6 % (0.0-2.0) H Differential Total Cells Counted 100 Neutrophils % (Manual) 48 % (45-75) Lymphocytes % (Manual) 5 % (20-45) L Monocytes % (Manual) 9 % (1-10) Eosinophils % (Manual) 1 % (0-3) Basophils % (Manual) 1 % (0-2) Band Neutrophils 36 % (0-8) H Platelet Estimate Adequate Platelet Morphology Normal Red Blood Cell Morphology Normal Prothrombin Time 11.1 SEC (9.30-11.50) Prothromb Time International Ratio 1.1 (0.9-1.1) Activated Partial Thromboplast Time 37 SEC (23-33) H Sodium Level 137 MMOL/L (136-145) 137 MMOL/L (136-145) Potassium Level 3.3 MMOL/L (3.5-5.1) L 2.8 MMOL/L (3.5-5.1) L Chloride Level 101 MMOL/L (98-107) 106 MMOL/L (98-107) Carbon Dioxide Level 23 MMOL/L (21-32) 20 MMOL/L (21-32) L Anion Gap 14 mmol/L (5-15) 12 mmol/L (5-15) Blood Urea Nitrogen 25 mg/dL (7-18) H 21 mg/dL (7-18) H Creatinine 1.2 MG/DL (0.55-1.30) 1.1 MG/DL (0.55-1.30) Estimat Glomerular Filtration Rate mL/min (>60) mL/min (>60) Glucose Level 179 MG/DL (74-106) H 154 MG/DL (74-106) H Lactic Acid Level 1.40 mmol/L (0.4-2.0) Calcium Level 9.3 MG/DL (8.5-10.1) 8.2 MG/DL (8.5-10.1) L Magnesium Level 1.5 MG/DL (1.8-2.4) L 1.3 MG/DL (1.8-2.4) L Total Bilirubin 0.5 MG/DL (0.2-1.0) 0.4 MG/DL (0.2-1.0) Aspartate Amino Transf (AST/SGOT) 37 U/L (15-37) 22 U/L (15-37) Alanine Aminotransferase (ALT/SGPT) 55 U/L (12-78) 40 U/L (12-78) Alkaline Phosphatase 434 U/L (46-116) H 316 U/L (46-116) H Total Creatine Kinase 43 U/L (26-308) Troponin I 0.041 ng/mL (0.000-0.056) 0.068 ng/mL (0.000-0.056) Pro-B-Type Natriuretic Peptide 4218 pg/mL (0-125) H Total Protein 7.4 G/DL (6.4-8.2) 6.0 G/DL (6.4-8.2) L Albumin 2.2 G/DL (3.4-5.0) L 1.7 G/DL (3.4-5.0) L Globulin 5.2 g/dL 4.3 g/dL Albumin/Globulin Ratio 0.4 (1.0-2.7) L 0.4 (1.0-2.7) L Urine Color Pale yellow Urine Appearance Clear Urine pH 7 (4.5-8.0) Urine Specific Opp 1.010 (1.005-1.035) Urine Protein 3+ (NEGATIVE) H Urine Glucose (UA) 2+ (NEGATIVE) H Urine Ketones Negative (NEGATIVE) Urine Blood Negative (NEGATIVE) Urine Nitrite Negative (NEGATIVE) Urine Bilirubin Negative (NEGATIVE) Urine Urobilinogen Normal MG/DL (0.0-1.0) Urine Leukocyte Esterase 1+ (NEGATIVE) H Urine RBC 0 /HPF (0 - 2) Urine WBC 5-10 /HPF (0 - 2) H Urine Squamous Epithelial Cells Occasional /LPF Urine Bacteria Occasional /HPF (NONE) Arterial Blood pH 7.427 (7.350-7.450) Arterial Blood Partial Pressure CO2 33.5 mmHg (35.0-45.0) L Arterial Blood Partial Pressure O2 37.1 mmHg (75.0-100.0) Arterial Blood HCO3 21.3 mmol/L (22.0-26.0) L Arterial Blood Oxygen Saturation 70.2 % (95-100) *L Arterial Blood Base Excess -2.2 (-2-2) L Kevin Test Positive Phosphorus Level 2.9 MG/DL (2.5-4.9) Microbiology Date/Time Source Procedure Growth Status 04/20/18 14:30 Blood Blood Culture - Preliminary Resulted 04/20/18 14:15 Blood Blood Culture - Preliminary Resulted 04/20/18 15:15 Nasal Nares Influenza Types A,B Antigen (REMY) - Final Complete 04/20/18 15:15 Indwelling Cath Urine Culture - Preliminary NO GROWTH Resulted 12/13/18 16:20 Ear Right Ear Culture - Preliminary NO GROWTH AFTER 48 HOURS Resulted 04/20/18 15:00 Rectum VRE Culture Pending Resulted 04/20/18 15:00 Rectum - Preliminary Resulted Height (Feet): 4 Height (Inches): 11.00 Weight (Pounds): 130 Medications Current Medications Medications (Trade) Dose Ordered Sig/Ibrahima Route PRN Reason Start Time Stop Time Status Last Admin Dose Admin Acetaminophen (Tylenol) 650 mg Q4H PRN ORAL fever (temp>100.5 F) 04/20/18 19:00 05/20/18 18:59 Albuterol/ Ipratropium (Albuterol/ Ipratropium) 3 ml Q4H PRN HHN Shortness of Breath 04/20/18 19:00 04/25/18 18:59 Cefepime HCl 2 gm/ Dextrose 110 ml @ 220 mls/hr EVERY 12 HOURS IV 04/20/18 21:00 04/27/18 20:59 04/21/18 00:33 Dextrose (Dextrose 50%) 25 ml Q30M PRN IV Hypoglycemia 04/20/18 19:15 05/20/18 19:00 Dextrose (Dextrose 50%) 50 ml Q30M PRN IV hypoglycemia 04/20/18 19:15 05/20/18 19:14 Dextrose/ Electrolytes 1,000 ml @ 125 mls/hr Q8H IV 04/21/18 12:00 05/21/18 11:59 04/21/18 12:16 Hydralazine HCl (Apresoline) 25 mg Q8H PRN ORAL For High Blood Pressure 04/20/18 19:00 05/20/18 18:59 Insulin Aspart (NovoLOG) BEFORE MEALS AND HS SUBQ 04/20/18 21:00 05/20/18 20:59 Insulin Aspart (NovoLOG) BEFORE MEALS AND HS SUBQ 04/21/18 06:30 05/21/18 06:29 Metoprolol Tartrate (Lopressor) 25 mg Q12HR ORAL 04/21/18 09:00 05/21/18 08:59 Morphine Sulfate (Morphine Sulfate) 2 mg Q4H PRN IVP Moderate Pain (Pain Scale 4-6) 04/20/18 19:00 04/27/18 18:59 Nitroglycerin (Ntg) 0.4 mg Q5M PRN SL Prn Chest Pain 04/20/18 19:00 05/20/18 18:59 Ondansetron HCl (Zofran) 4 mg Q6H PRN IVP Nausea & Vomiting 04/20/18 19:00 05/20/18 18:59 Polyethylene Glycol (Miralax) 17 gm DAILYPRN PRN ORAL Constipation 04/20/18 19:00 05/20/18 18:59 Temazepam (Restoril) 15 mg HSPRN PRN ORAL Insomnia 04/20/18 19:00 04/27/18 18:59 Vancomycin HCl (Vanco rx to dose) 1 ea DAILY PRN MISC PER PHARM 04/21/18 07:15 05/21/18 07:14 Vancomycin/Sodium Chloride 250 ml @ 166.667 mls/hr Q24H IVPB 04/22/18 02:00 04/27/18 01:59 Assessment/Plan Assessment/Plan Abx: IV Vancomycin 04/20- LEvaquin x1 04/20 Cefepime 04/20- Assessment: Severe sepsis- 2ry to Gram negative bacteremia (?source: from urine vs intraabdominal vs port infection); immunocompromised host -04/20 Bcx 2/4 GBR u/a wbc 5-10, nit neg, leuk +1; ucx NTD influenza sc neg -CXR: Left basilar atelectasis. No acute process otherwise. 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 Will continue to follow along with you. Discussed with Lakesha Butler M.D. Apr 21, 2018 13:35
--- NOTE | 2018-04-21 13:38 | Consultation ---
History of Present Illness General Date patient seen: Apr 21, 2018 Chief Complaint: Altered Level of Consciousness Present Illness HPI 83 year old lady with history of hypertension and type 2 diabetes, CAD, non- Hodgkin's lymphoma on chemotherapy and retropharyngeal radiation therapy the pt is lethargic waxing and waning of consciousness the pt is unable to provide any hx. the pt has episodes of agitations Allergies: Coded Allergies: No Known Allergies (Unverified , 04/20/18) Medication History Scheduled Acyclovir* (Acyclovir*), 400 MG ORAL DAILY, (Reported) Erythromycin Base (Erythromycin*), 1 APPLIC RIGHT EYE DAILY, (Reported) Magnesium (Magnesium), 250 MG PO DAILY, (Reported) Metformin Hcl* (Metformin Hcl*), 500 MG ORAL TWICE A DAY, (Reported) Nystatin* (Nystatin*), 4 ML ORAL TID, (Reported) Ofloxacin (Ofloxacin), 2 DROP RIGHT EAR DAILY, (Reported) Prednisone (Prednisone), 5 MG PO DAILY, (Reported) Ranitidine Hcl* (Zantac*), 300 MG ORAL QPM, (Reported) Simvastatin (Zocor), 40 MG ORAL BEDTIME, (Reported) Scheduled PRN Acetaminophen 160MG/5ML* (Acetaminophen*), 500 MG ORAL Q6HR PRN for Mild Pain ( Pain Scale 1-3), (Reported) Amlodipine Besylate* (Amlodipine Besylate*), 10 MG ORAL DAILY PRN for BP>140, ( Reported) Diclofenac Sod* (Voltaren*), 50 MG ORAL THREE TIMES A DAY PRN for For Pain, ( Reported) Hydralazine Hcl* (Hydralazine Hcl*), 25 MG ORAL EVERY 8 HOURS PRN for For High Blood Pressure, (Reported) Magnesium Hydroxide* (Milk Of Magnesia*), 30 ML ORAL DAILY PRN for Constipation, (Reported) Metoprolol Tartrate* (Metoprolol Tartrate*), 12.5 MG ORAL TID PRN for pulse>110, (Reported) Morphine 10mg/5ml Oral Soln* (Morphine 10mg/5ml Oral Soln*), 7.5 MG ORAL Q6HR PRN for For Pain, (Reported) Morphine HCl (Morphine Sulfate ER), 7.5 MG ORAL Q6H PRN for Severe Pain (Pain Scale 7-10), (Reported) Tramadol Hcl* (Ultram*), 50 MG ORAL Q6H PRN for Moderate Pain (Pain Scale 4-6), (Reported) Miscellaneous Medications Calcium Carbonate/Vitamin D3 (Calcium 600 + Vit D 400 Tablet), 1 EACH PO, ( Reported) Discontinued Medications Cefepime Hcl/D5w (Cefepime-Dextrose 2 Gm/50 Ml), 2 GM IVPB Q24H, (Reported) Discontinued Reason: MD discontinued med Ferrous Sulfate* (Ferrous Sulfate*), 325 MG ORAL DAILY, (Reported) Discontinued Reason: Pt stopped taking med Multivitamins* (Multivitamins*), 1 TAB ORAL DAILY, (Reported) Discontinued Reason: Pt stopped taking med Patient History Limited by: medical condition History Provided By: Medical Record, PMD Healthcare decision maker KYARA ESPINAL Resuscitation status Full Code Advanced Directive on File No Past Medical/Surgical History Past Medical/Surgical History: (1) Lymphoma (2) Altered level of consciousness (3) Abnormal CXR (4) Sepsis (5) Diabetes mellitus (6) CAD (coronary artery disease) (7) History of hypertension (8) Septic shock (9) Non-Hodgkin lymphoma Review of Systems Psychiatric: Reports: prior hx, anxiety Physical Exam General Appearance: lethargic, confused, agitated Last 24 Hour Vital Signs Date Time Temp Pulse Resp B/P (MAP) Pulse Ox O2 Delivery O2 Flow Rate FiO2 04/21/18 12:00 Room Air 04/21/18 12:00 98.4 116 20 149/73 (98) 96 04/21/18 11:52 116 04/21/18 08:46 104 134/63 04/21/18 08:00 98.2 20 134/63 (86) 96 04/21/18 08:00 109 04/21/18 08:00 Room Air 04/21/18 04:00 96 04/21/18 04:00 Room Air 04/21/18 04:00 99.2 112 16 132/65 (87) 98 04/21/18 00:33 117 116/66 04/21/18 00:00 120 04/21/18 00:00 98.9 117 18 116/66 (83) 99 04/20/18 23:18 124 04/20/18 22:47 129 28 113/56 99 Nasal Cannula 2.0 100 04/20/18 22:30 99.1 131 20 140/75 (96) 99 04/20/18 22:30 Room Air 04/20/18 18:19 133 24 127/57 99 Room Air 04/20/18 17:00 129 26 114/58 98 Room Air 04/20/18 16:34 100.9 04/20/18 15:28 100.9 04/20/18 15:00 128 30 128/65 98 Room Air 04/20/18 14:15 104.6 04/20/18 14:15 155 30 Room Air 04/20/18 14:07 104.5 155 30 163/82 98 Room Air Intake and Output 04/20/18 04/21/18 19:00 07:00 Intake Total 2425 ml 1385.0 ml Output Total 150 ml Balance 2425 ml 1235.0 ml Intake Oral 0 ml IV Total 2425 ml 1385.0 ml Output Urine Total 150 ml # Voids 1 2 # Bowel Movements 1 Laboratory Tests Test 04/20/18 14:30 04/20/18 15:15 04/20/18 15:31 04/21/18 03:25 White Blood Count 12.4 K/UL (4.8-10.8) H 13.1 K/UL (4.8-10.8) H Red Blood Count 3.44 M/UL (4.20-5.40) L 2.90 M/UL (4.20-5.40) L Hemoglobin 10.6 G/DL (12.0-16.0) L 8.9 G/DL (12.0-16.0) L Hematocrit 31.1 % (37.0-47.0) L 26.4 % (37.0-47.0) L Mean Corpuscular Volume 90 FL (80-99) 91 FL (80-99) Mean Corpuscular Hemoglobin 30.6 PG (27.0-31.0) 30.9 PG (27.0-31.0) Mean Corpuscular Hemoglobin Concent 34.0 G/DL (32.0-36.0) 33.9 G/DL (32.0-36.0) Red Cell Distribution Width 13.7 % (11.6-14.8) 14.0 % (11.6-14.8) Platelet Count 188 K/UL (150-450) 137 K/UL (150-450) L Mean Platelet Volume 7.1 FL (6.5-10.1) 8.5 FL (6.5-10.1) Neutrophils (%) (Auto) % (45.0-75.0) 72.4 % (45.0-75.0) Lymphocytes (%) (Auto) % (20.0-45.0) 6.7 % (20.0-45.0) L Monocytes (%) (Auto) % (1.0-10.0) 18.2 % (1.0-10.0) H Eosinophils (%) (Auto) % (0.0-3.0) 0.1 % (0.0-3.0) Basophils (%) (Auto) % (0.0-2.0) 2.6 % (0.0-2.0) H Differential Total Cells Counted 100 Neutrophils % (Manual) 48 % (45-75) Lymphocytes % (Manual) 5 % (20-45) L Monocytes % (Manual) 9 % (1-10) Eosinophils % (Manual) 1 % (0-3) Basophils % (Manual) 1 % (0-2) Band Neutrophils 36 % (0-8) H Platelet Estimate Adequate Platelet Morphology Normal Red Blood Cell Morphology Normal Prothrombin Time 11.1 SEC (9.30-11.50) Prothromb Time International Ratio 1.1 (0.9-1.1) Activated Partial Thromboplast Time 37 SEC (23-33) H Sodium Level 137 MMOL/L (136-145) 137 MMOL/L (136-145) Potassium Level 3.3 MMOL/L (3.5-5.1) L 2.8 MMOL/L (3.5-5.1) L Chloride Level 101 MMOL/L (98-107) 106 MMOL/L (98-107) Carbon Dioxide Level 23 MMOL/L (21-32) 20 MMOL/L (21-32) L Anion Gap 14 mmol/L (5-15) 12 mmol/L (5-15) Blood Urea Nitrogen 25 mg/dL (7-18) H 21 mg/dL (7-18) H Creatinine 1.2 MG/DL (0.55-1.30) 1.1 MG/DL (0.55-1.30) Estimat Glomerular Filtration Rate mL/min (>60) mL/min (>60) Glucose Level 179 MG/DL (74-106) H 154 MG/DL (74-106) H Lactic Acid Level 1.40 mmol/L (0.4-2.0) Calcium Level 9.3 MG/DL (8.5-10.1) 8.2 MG/DL (8.5-10.1) L Magnesium Level 1.5 MG/DL (1.8-2.4) L 1.3 MG/DL (1.8-2.4) L Total Bilirubin 0.5 MG/DL (0.2-1.0) 0.4 MG/DL (0.2-1.0) Aspartate Amino Transf (AST/SGOT) 37 U/L (15-37) 22 U/L (15-37) Alanine Aminotransferase (ALT/SGPT) 55 U/L (12-78) 40 U/L (12-78) Alkaline Phosphatase 434 U/L (46-116) H 316 U/L (46-116) H Total Creatine Kinase 43 U/L (26-308) Troponin I 0.041 ng/mL (0.000-0.056) 0.068 ng/mL (0.000-0.056) Pro-B-Type Natriuretic Peptide 4218 pg/mL (0-125) H Total Protein 7.4 G/DL (6.4-8.2) 6.0 G/DL (6.4-8.2) L Albumin 2.2 G/DL (3.4-5.0) L 1.7 G/DL (3.4-5.0) L Globulin 5.2 g/dL 4.3 g/dL Albumin/Globulin Ratio 0.4 (1.0-2.7) L 0.4 (1.0-2.7) L Urine Color Pale yellow Urine Appearance Clear Urine pH 7 (4.5-8.0) Urine Specific [place] 1.010 (1.005-1.035) Urine Protein 3+ (NEGATIVE) H Urine Glucose (UA) 2+ (NEGATIVE) H Urine Ketones Negative (NEGATIVE) Urine Blood Negative (NEGATIVE) Urine Nitrite Negative (NEGATIVE) Urine Bilirubin Negative (NEGATIVE) Urine Urobilinogen Normal MG/DL (0.0-1.0) Urine Leukocyte Esterase 1+ (NEGATIVE) H Urine RBC 0 /HPF (0 - 2) Urine WBC 5-10 /HPF (0 - 2) H Urine Squamous Epithelial Cells Occasional /LPF Urine Bacteria Occasional /HPF (NONE) Arterial Blood pH 7.427 (7.350-7.450) Arterial Blood Partial Pressure CO2 33.5 mmHg (35.0-45.0) L Arterial Blood Partial Pressure O2 37.1 mmHg (75.0-100.0) Arterial Blood HCO3 21.3 mmol/L (22.0-26.0) L Arterial Blood Oxygen Saturation 70.2 % (95-100) *L Arterial Blood Base Excess -2.2 (-2-2) L Kevin Test Positive Phosphorus Level 2.9 MG/DL (2.5-4.9) Microbiology Date/Time Source Procedure Growth Status 04/20/18 14:30 Blood Blood Culture - Preliminary Resulted 04/20/18 14:15 Blood Blood Culture - Preliminary Resulted 04/20/18 15:15 Nasal Nares Influenza Types A,B Antigen (REMY) - Final Complete 04/20/18 15:15 Indwelling Cath Urine Culture - Preliminary NO GROWTH Resulted 04/20/18 16:20 Ear Right Ear Culture - Preliminary NO GROWTH AFTER 48 HOURS Resulted 04/20/18 15:00 Rectum VRE Culture Pending Resulted 04/20/18 15:00 Rectum - Preliminary Resulted Height (Feet): 4 Height (Inches): 11.00 Weight (Pounds): 130 Medications Current Medications Medications (Trade) Dose Ordered Sig/Ibrahima Route PRN Reason Start Time Stop Time Status Last Admin Dose Admin Acetaminophen (Tylenol) 650 mg Q4H PRN ORAL fever (temp>100.5 F) 04/20/18 19:00 05/20/18 18:59 Albuterol/ Ipratropium (Albuterol/ Ipratropium) 3 ml Q4H PRN HHN Shortness of Breath 04/20/18 19:00 04/25/18 18:59 Cefepime HCl 2 gm/ Dextrose 110 ml @ 220 mls/hr EVERY 12 HOURS IV 04/20/18 21:00 04/27/18 20:59 04/21/18 00:33 Dextrose (Dextrose 50%) 25 ml Q30M PRN IV Hypoglycemia 04/20/18 19:15 05/20/18 19:00 Dextrose (Dextrose 50%) 50 ml Q30M PRN IV hypoglycemia 04/20/18 19:15 05/20/18 19:14 Dextrose/ Electrolytes 1,000 ml @ 125 mls/hr Q8H IV 04/21/18 12:00 05/21/18 11:59 04/21/18 12:16 Hydralazine HCl (Apresoline) 25 mg Q8H PRN ORAL For High Blood Pressure 04/20/18 19:00 05/20/18 18:59 Insulin Aspart (NovoLOG) BEFORE MEALS AND HS SUBQ 04/20/18 21:00 05/20/18 20:59 Insulin Aspart (NovoLOG) BEFORE MEALS AND HS SUBQ 04/21/18 06:30 05/21/18 06:29 Metoprolol Tartrate (Lopressor) 25 mg Q12HR ORAL 04/21/18 09:00 05/21/18 08:59 Morphine Sulfate (Morphine Sulfate) 2 mg Q4H PRN IVP Moderate Pain (Pain Scale 4-6) 04/20/18 19:00 04/27/18 18:59 Nitroglycerin (Ntg) 0.4 mg Q5M PRN SL Prn Chest Pain 04/20/18 19:00 05/20/18 18:59 Ondansetron HCl (Zofran) 4 mg Q6H PRN IVP Nausea & Vomiting 04/20/18 19:00 05/20/18 18:59 Polyethylene Glycol (Miralax) 17 gm DAILYPRN PRN ORAL Constipation 04/20/18 19:00 05/20/18 18:59 Temazepam (Restoril) 15 mg HSPRN PRN ORAL Insomnia 04/20/18 19:00 04/27/18 18:59 Vancomycin HCl (Vanco rx to dose) 1 ea DAILY PRN MISC PER PHARM 04/21/18 07:15 05/21/18 07:14 Vancomycin/Sodium Chloride 250 ml @ 166.667 mls/hr Q24H IVPB 04/22/18 02:00 04/27/18 01:59 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
[2018-04-21] MEDS: Meropenem 1 GM in NS 55 ML IVPB SCH (14:20)
--- NOTE | 2018-04-21 15:23 | Cardiology Report ---
APPROVED REPORT EXAM: Two-dimensional and M-mode echocardiogram with Doppler and color Doppler. INDICATION Abnormal cardiac function study M-Mode DIMENSIONS IVSd1.5 (0.7-1.1cm)Left Atrium (MM)3.8 (1.6-4.0cm) LVDd2.3 (3.5-5.6cm)Aortic Root2.7 (2.0-3.7cm) PWd1.6 (0.7-1.1cm)Aortic Cusp Exc.1.7 (1.5-2.0cm) LVDs0.9 (2.5-4.0cm) PWs1.8 cm Normal left ventricular chamber size, systolic function and wall motion. Left ventricular ejection fraction estimated to be 60 %. Mild left ventricular hypertrophy. Anterior Echo-free space, may be due to pericardial fat or effusion. All other cardiac chamber sizes are within normal limits. Focal aortic valve sclerosis with adequate cusp excursion. Heavily thickened mitral valve leaflets with reduced excursion. Echogenic material noted on posterior mitral valve leaflet. Heavy mitral annulus and aortic root calcification. Normal pulmonic valve structure. Normal tricuspid valve structure. IVC is normal in size with physiological collapse. A color flow and spectral Doppler study was performed and revealed: Mild aortic insufficiency. Bioprosthetic aortic valve replacement noted. Peak aortic valve gradient of 52 mmHg and a mean of 29 mmHg. Moderate to severe mitral regurgitation. Mitral P1/2 time of 49 m/s is compatible with a mitral valve area of 1.8 cm2. Peak mitral valve diastolic gradient of 21 mmHg and a mean gradient of 9 mmHg. Mitral diastolic velocities suggest mild left ventricular diastolic dysfunction (Grade I). Trace tricuspid regurgitation. Tricuspid systolic velocities suggests peak right ventricular systolic pressure of 31 mmHg. No pulmonic regurgitation present.
[2018-04-21 16:00] VITALS: BP 133/66
[2018-04-21 17:10] LABS: ANION GAP 13 mmol/L (5-15); BLOOD UREA NITROGEN 22 mg/dL (7-18); CALCIUM 7.8 MG/DL (8.5-10.1); CARBON DIOXIDE 18 MMOL/L (21-32); CHLORIDE 108 MMOL/L (98-107); CREATININE 1.1 MG/DL (0.55-1.30); POTASSIUM 3.8 MMOL/L (3.5-5.1); SODIUM 138 MMOL/L (136-145)
--- NOTE | 2018-04-21 17:34 | Internal Med Progress Note ---
Subjective Physician Name Jaxon Chow Attending Physician Jaxon Chow MD Current Medications Medications (Trade) Dose Ordered Sig/Ibrahima Route PRN Reason Start Time Stop Time Status Last Admin Dose Admin Acetaminophen (Tylenol) 650 mg Q4H PRN ORAL fever (temp>100.5 F) 04/20/18 19:00 05/20/18 18:59 Acyclovir (Zovirax) 400 mg DAILY ORAL 04/22/18 09:00 05/22/18 08:59 Albuterol/ Ipratropium (Albuterol/ Ipratropium) 3 ml Q4H PRN HHN Shortness of Breath 04/20/18 19:00 04/25/18 18:59 Artificial Tears (Lacri-Lube) 1 applic BID ONCE RIGHT EYE 04/21/18 18:00 04/21/18 18:01 Ciprofloxacin (Ciloxan Opth Soln) 2 drop BID RIGHT EAR 04/21/18 18:00 04/28/18 17:59 Dextrose (Dextrose 50%) 25 ml Q30M PRN IV Hypoglycemia 04/20/18 19:15 05/20/18 19:00 Dextrose (Dextrose 50%) 50 ml Q30M PRN IV hypoglycemia 04/20/18 19:15 05/20/18 19:14 Dextrose/ Electrolytes 1,000 ml @ 125 mls/hr Q8H IV 04/21/18 12:00 05/21/18 11:59 04/21/18 12:16 Hydralazine HCl (Apresoline) 25 mg Q8H PRN ORAL For High Blood Pressure 04/20/18 19:00 05/20/18 18:59 Insulin Aspart (NovoLOG) BEFORE MEALS AND HS SUBQ 04/21/18 06:30 05/21/18 06:29 Meropenem 1 gm/ Sodium Chloride 55 ml @ 110 mls/hr Q12H IVPB 04/21/18 14:00 04/26/18 13:59 04/21/18 14:20 Metoprolol Tartrate (Lopressor) 25 mg Q12HR ORAL 04/21/18 09:00 05/21/18 08:59 Morphine Sulfate (Morphine Sulfate) 2 mg Q4H PRN IVP Moderate Pain (Pain Scale 4-6) 04/20/18 19:00 04/27/18 18:59 Nitroglycerin (Ntg) 0.4 mg Q5M PRN SL Prn Chest Pain 04/20/18 19:00 05/20/18 18:59 Ondansetron HCl (Zofran) 4 mg Q6H PRN IVP Nausea & Vomiting 04/20/18 19:00 05/20/18 18:59 Polyethylene Glycol (Miralax) 17 gm DAILYPRN PRN ORAL Constipation 04/20/18 19:00 05/20/18 18:59 Risperidone (RisperDAL) 1 mg BEDTIME PRN ORAL agitation 04/21/18 13:45 05/21/18 13:44 Temazepam (Restoril) 15 mg HSPRN PRN ORAL Insomnia 04/20/18 19:00 04/27/18 18:59 Vancomycin HCl (Vanco rx to dose) 1 ea DAILY PRN MISC PER PHARM 04/21/18 07:15 05/21/18 07:14 Vancomycin/Sodium Chloride 250 ml @ 166.667 mls/hr Q24H IVPB 04/22/18 02:00 04/27/18 01:59 Allergies: Coded Allergies: No Known Allergies (Unverified , 04/20/18) Subjective more responsive, very weak, sleepy, family at bedside Objective Last Vital Signs Date Time Temp Pulse Resp B/P (MAP) Pulse Ox O2 Delivery O2 Flow Rate FiO2 04/21/18 16:00 107 04/21/18 16:00 Room Air 04/21/18 16:00 98.2 20 133/66 (88) 94 04/20/18 22:47 2.0 100 Laboratory Tests Test 04/21/18 03:25 04/21/18 16:20 White Blood Count 13.1 K/UL (4.8-10.8) H Red Blood Count 2.90 M/UL (4.20-5.40) L Hemoglobin 8.9 G/DL (12.0-16.0) L Hematocrit 26.4 % (37.0-47.0) L Mean Corpuscular Volume 91 FL (80-99) Mean Corpuscular Hemoglobin 30.9 PG (27.0-31.0) Mean Corpuscular Hemoglobin Concent 33.9 G/DL (32.0-36.0) Red Cell Distribution Width 14.0 % (11.6-14.8) Platelet Count 137 K/UL (150-450) L Mean Platelet Volume 8.5 FL (6.5-10.1) Neutrophils (%) (Auto) 72.4 % (45.0-75.0) Lymphocytes (%) (Auto) 6.7 % (20.0-45.0) L Monocytes (%) (Auto) 18.2 % (1.0-10.0) H Eosinophils (%) (Auto) 0.1 % (0.0-3.0) Basophils (%) (Auto) 2.6 % (0.0-2.0) H Sodium Level 137 MMOL/L (136-145) 138 MMOL/L (136-145) Potassium Level 2.8 MMOL/L (3.5-5.1) L 3.8 MMOL/L (3.5-5.1) Chloride Level 106 MMOL/L (98-107) 108 MMOL/L (98-107) H Carbon Dioxide Level 20 MMOL/L (21-32) L 18 MMOL/L (21-32) L Anion Gap 12 mmol/L (5-15) 13 mmol/L (5-15) Blood Urea Nitrogen 21 mg/dL (7-18) H 22 mg/dL (7-18) H Creatinine 1.1 MG/DL (0.55-1.30) 1.1 MG/DL (0.55-1.30) Estimat Glomerular Filtration Rate mL/min (>60) mL/min (>60) Glucose Level 154 MG/DL (74-106) H 181 MG/DL (74-106) H Calcium Level 8.2 MG/DL (8.5-10.1) L 7.8 MG/DL (8.5-10.1) L Phosphorus Level 2.9 MG/DL (2.5-4.9) Magnesium Level 1.3 MG/DL (1.8-2.4) L Total Bilirubin 0.4 MG/DL (0.2-1.0) Aspartate Amino Transf (AST/SGOT) 22 U/L (15-37) Alanine Aminotransferase (ALT/SGPT) 40 U/L (12-78) Alkaline Phosphatase 316 U/L (46-116) H Troponin I 0.068 ng/mL (0.000-0.056) Total Protein 6.0 G/DL (6.4-8.2) L Albumin 1.7 G/DL (3.4-5.0) L Globulin 4.3 g/dL Albumin/Globulin Ratio 0.4 (1.0-2.7) L Microbiology Date/Time Source Procedure Growth Status 04/20/18 14:30 Blood Blood Culture - Preliminary Resulted 04/20/18 14:15 Blood Blood Culture - Preliminary Resulted 04/20/18 15:15 Nasal Nares Influenza Types A,B Antigen (REMY) - Final Complete 04/20/18 15:15 Indwelling Cath Urine Culture - Preliminary NO GROWTH Resulted 04/20/18 16:20 Ear Right Ear Culture - Preliminary NO GROWTH AFTER 48 HOURS Resulted 04/20/18 15:00 Rectum VRE Culture Pending Resulted 04/20/18 15:00 Rectum - Preliminary Resulted Intake and Output 04/20/18 04/21/18 19:00 07:00 Intake Total 2425 ml 1385.0 ml Output Total 150 ml Balance 2425 ml 1235.0 ml Intake Oral 0 ml IV Total 2425 ml 1385.0 ml Output Urine Total 150 ml # Voids 1 2 # Bowel Movements 1 Objective GENERAL: The patient is cachectic. weak and chronic illness looking. HEAD AND NECK: Pupils are reactive to light. Right side of face Hilario palsy. NECK: Supple. No JVD. LUNGS: decrease air entry at bases. Poor inspiratory effort. No wheeze or rhonchi. HEART: S1 and S2. Tachycardic. ABDOMEN: Soft, nondistended, and nontender. Positive bowel sounds. EXTREMITIES: No cyanosis, clubbing, or edema. Right upper extremity PAS port was noted. NEUROLOGIC: Cranial nerves II through XII grossly intact. The patient is moving all extremities spontaneously slowly. Assessment/Plan Assessment/Plan ASSESSMENT: 1. Sepsis. 2. Dehydration. 3. Tachycardia. 4. Non-Hodgkin lymphoma. 5. Diabetes type 2. 6. Hypertension. 7. Anemia. 8. History of right-sided Hilario palsy. PLAN: In telemetry. F/U with laboratory and culture. Antibiotic with vancomycin and meropenem. Discussion with the daughter extensively at bedside. Code status, Full Code. DVT prophylaxis. Heparin, subcu. Follow up with Dr. Negron, Pulmonary, Critical Care, and Dr. Ratliff Infectious Disease IVF Monitor BS Switch Metoprol to IV Channing Elizabeth,Jaxon SCHAEFER Apr 21, 2018 17:34
[2018-04-21] MEDS ORDERED: Lacri-Lube Opth Oint 3.5gm RIGHT EYE ONE (18:00)
[2018-04-21] MEDS: Ciprofloxacin Opth Soln 2.5ml RIGHT EAR SCH (18:40)
[2018-04-21 20:00] VITALS: BP 146/85
[2018-04-21] MEDS: ACYCLOVIR IV SCH (21:01)
[2018-04-21] MEDS: D5W IV SCH (21:01)
[2018-04-21] MEDS: Dexamethasone 4mg/ml vial IVP SCH (21:27)
[2018-04-21] MEDS: Metoprolol Tartrate 10 MG in D5W 55 ML IVPB SCH (21:29)
[2018-04-22] VITALS: BP 139/90
[2018-04-22] MEDS: Meropenem 1 GM in NS 55 ML IVPB SCH ×2 (01:48→14:52)
[2018-04-22] MEDS ORDERED: Vancomycin 750mg/NS 250ml IVPB SCH (02:00)
[2018-04-22 04:00] VITALS: BP 152/77
[2018-04-22] MEDS: NovoLOG Insulin Flexpen SUBQ SCH ×4 (06:30→21:00)
--- NOTE | 2018-04-22 07:03 | Infectious Diseases Prog Note ---
Assessment/Plan Assessment/Plan Severe sepsis- 2ry to Gram negative bacteremia (?source: from urine vs intraabdominal vs port infection); immunocompromised host -04/20 Bcx 2/4 GBR u/a wbc 5-10, nit neg, leuk +1; ucx NTD influenza sc neg -CXR: Left basilar atelectasis. No acute process otherwise. 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 Will continue to follow along with you. Discussed with RN Subjective Allergies: Coded Allergies: No Known Allergies (Unverified , 04/20/18) Subjective Afebrile Mild leukocytosis on RA Objective Vital Signs Last 24 Hour Vital Signs Date Time Temp Pulse Resp B/P (MAP) Pulse Ox O2 Delivery O2 Flow Rate FiO2 04/22/18 04:00 98.2 105 19 152/77 (102) 98 04/22/18 04:00 Room Air 04/22/18 00:00 102 04/22/18 00:00 98.3 106 20 139/90 (106) 96 04/21/18 21:29 114 146/85 04/21/18 21:00 Room Air 04/21/18 20:00 99.7 69 18 146/85 (105) 97 04/21/18 16:00 107 04/21/18 16:00 Room Air 04/21/18 16:00 98.2 112 20 133/66 (88) 94 04/21/18 12:00 Room Air 04/21/18 12:00 98.4 116 20 149/73 (98) 96 04/21/18 11:52 116 04/21/18 08:46 104 134/63 04/21/18 08:00 98.2 20 134/63 (86) 96 04/21/18 08:00 109 04/21/18 08:00 Room Air Height (Feet): 4 Height (Inches): 11.00 Weight (Pounds): 130 Objective GENERAL: The patient is cachectic. NAD HEAD AND NECK: Pupils are reactive to light. Right side of face, she has Hilario palsy. R ear with minimal yellowish drainage LUNGS: Good air entry. Poor inspiratory effort. No w HEART: S1 and S2. Tachycardic. ABDOMEN: Soft, nondistended, and nontender. Positive bowel sounds. Microbiology Date/Time Source Procedure Growth Status 04/20/18 14:30 Blood Blood Culture - Preliminary Gram Negative Tad Resulted 04/20/18 14:15 Blood Blood Culture - Preliminary Gram Negative Tad Resulted 04/20/18 15:15 Nasal Nares Influenza Types A,B Antigen (REMY) - Final Complete 04/20/18 15:00 Nasal Nares MRSA Culture - Final NO METHICILLIN RESISTANT STAPH AUREUS... Complete 04/20/18 15:15 Indwelling Cath Urine Culture - Final NO GROWTH AFTER 48 HOURS Complete 04/20/18 16:20 Ear Right Ear Culture - Preliminary NO GROWTH AFTER 48 HOURS Resulted 04/20/18 15:00 Rectum VRE Culture Pending Resulted 04/20/18 15:00 Rectum - Preliminary Resulted Laboratory Tests Test 04/21/18 16:20 Sodium Level 138 MMOL/L (136-145) Potassium Level 3.8 MMOL/L (3.5-5.1) Chloride Level 108 MMOL/L (98-107) H Carbon Dioxide Level 18 MMOL/L (21-32) L Anion Gap 13 mmol/L (5-15) Blood Urea Nitrogen 22 mg/dL (7-18) H Creatinine 1.1 MG/DL (0.55-1.30) Estimat Glomerular Filtration Rate mL/min (>60) Glucose Level 181 MG/DL (74-106) H Calcium Level 7.8 MG/DL (8.5-10.1) L Current Medications Medications (Trade) Dose Ordered Sig/Ibrahima Route PRN Reason Start Time Stop Time Status Last Admin Dose Admin Acetaminophen (Tylenol) 650 mg Q4H PRN ORAL fever (temp>100.5 F) 04/20/18 19:00 05/20/18 18:59 Acyclovir 400 mg/ Dextrose 110 ml @ 110 mls/hr Q12H IV 04/21/18 20:00 05/21/18 19:59 04/21/18 21:01 Albuterol/ Ipratropium (Albuterol/ Ipratropium) 3 ml Q4H PRN HHN Shortness of Breath 04/20/18 19:00 04/25/18 18:59 Ciprofloxacin (Ciloxan Opth Soln) 2 drop BID RIGHT EAR 04/21/18 18:00 04/28/18 17:59 04/21/18 18:40 Dexamethasone Sodium Phosphate (Decadron 4mg/ml vial) 4 mg Q12HR IVP 04/21/18 21:00 05/21/18 20:59 04/21/18 21:27 Dextrose (Dextrose 50%) 25 ml Q30M PRN IV Hypoglycemia 04/20/18 19:15 05/20/18 19:00 Dextrose (Dextrose 50%) 50 ml Q30M PRN IV hypoglycemia 04/20/18 19:15 05/20/18 19:14 Dextrose/ Electrolytes 1,000 ml @ 125 mls/hr Q8H IV 04/21/18 12:00 05/21/18 11:59 04/21/18 20:59 Hydralazine HCl (Apresoline) 25 mg Q8H PRN ORAL For High Blood Pressure 04/20/18 19:00 05/20/18 18:59 Insulin Aspart (NovoLOG) BEFORE MEALS AND HS SUBQ 04/21/18 06:30 05/21/18 06:29 Meropenem 1 gm/ Sodium Chloride 55 ml @ 110 mls/hr Q12H IVPB 04/21/18 14:00 04/26/18 13:59 04/22/18 01:48 Metoprolol Tartrate 10 mg/ Dextrose 65 ml @ 130 mls/hr Q12HR IVPB 04/21/18 21:00 05/21/18 20:59 04/21/18 21:29 Morphine Sulfate (Morphine Sulfate) 2 mg Q4H PRN IVP Moderate Pain (Pain Scale 4-6) 04/20/18 19:00 04/27/18 18:59 Nitroglycerin (Ntg) 0.4 mg Q5M PRN SL Prn Chest Pain 04/20/18 19:00 05/20/18 18:59 Ondansetron HCl (Zofran) 4 mg Q6H PRN IVP Nausea & Vomiting 04/20/18 19:00 05/20/18 18:59 Polyethylene Glycol (Miralax) 17 gm DAILYPRN PRN ORAL Constipation 04/20/18 19:00 05/20/18 18:59 Risperidone (RisperDAL) 1 mg BEDTIME PRN ORAL agitation 04/21/18 13:45 05/21/18 13:44 Temazepam (Restoril) 15 mg HSPRN PRN ORAL Insomnia 04/20/18 19:00 04/27/18 18:59 Vancomycin HCl (Vanco rx to dose) 1 ea DAILY PRN MISC PER PHARM 04/21/18 07:15 05/21/18 07:14 Vancomycin/Sodium Chloride 250 ml @ 166.667 mls/hr Q24H IVPB 04/22/18 02:00 04/27/18 01:59 04/22/18 01:48 Demarco Shine MD Apr 22, 2018 07:03
--- NOTE | 2018-04-22 07:17 | Pulmonology Progress Note ---
Assessment/Plan Assessment/Plan ASSESSMENT Sepsis Dehydration Non-Hodgkin lymphoma Hypertension Anemia Recent history of Hilario policy, right sided Elevated troponin e/lyte imbalance dysphagia malnutrition PLAN OF CARE tele IVF, monitor renal parameters lytes; correct electrolytes prn, avoid nephrotoxic empiric abx, f/up with cx influenza screen negative ear cx negative; urine cx negative; blood cx pending ID follows trend troponin - per cardio, follwos BP management with BB and optimize further as needed DVT prophylaxis O2 HHN prn swallow eval change diet to pureed dietary eval strict aspiration precautions fup with CXR replace Mg and P, recheck lytes in am BS management with SSI pain management bowel regimen supportive care case discussed and evaluated by supervising physician Subjective Allergies: Coded Allergies: No Known Allergies (Unverified , 04/20/18) Subjective no signs of distress transferred to tele unable to eat soft food, choking daughter in law at the bedside leukocytosis resolved, afebrile low Mg, P Objective Last 24 Hour Vital Signs Date Time Temp Pulse Resp B/P (MAP) Pulse Ox O2 Delivery O2 Flow Rate FiO2 04/22/18 04:00 98.2 105 19 152/77 (102) 98 04/22/18 04:00 Room Air 04/22/18 00:00 102 04/22/18 00:00 98.3 106 20 139/90 (106) 96 04/21/18 21:29 114 146/85 04/21/18 21:00 Room Air 04/21/18 20:00 99.7 69 18 146/85 (105) 97 04/21/18 16:00 107 04/21/18 16:00 Room Air 04/21/18 16:00 98.2 112 20 133/66 (88) 94 04/21/18 12:00 Room Air 04/21/18 12:00 98.4 116 20 149/73 (98) 96 04/21/18 11:52 116 04/21/18 08:46 104 134/63 04/21/18 08:00 98.2 20 134/63 (86) 96 04/21/18 08:00 109 04/21/18 08:00 Room Air Intake and Output 04/21/18 04/22/18 19:00 07:00 Intake Total 860 ml Output Total 175 ml Balance 685 ml Intake Oral 110 ml IV Total 750 ml Output Urine Total 175 ml General Appearance: no acute distress, other - awake, resposnive to verbal and tactile stimuli, confused HEENT: normocephalic, atraumatic Respiratory/Chest: lungs clear, no respiratory distress, no accessory muscle use Cardiovascular: normal rate - ST on tele 100-106 Neurologic/Psychiatric: abnormal gait, other - awake, confused Musculoskeletal: atrophy - BLE Microbiology Date/Time Source Procedure Growth Status 04/20/18 14:30 Blood Blood Culture - Preliminary Gram Negative Tad Resulted 04/20/18 14:15 Blood Blood Culture - Preliminary Gram Negative Tad Resulted 04/20/18 15:15 Nasal Nares Influenza Types A,B Antigen (REMY) - Final Complete 04/20/18 15:00 Nasal Nares MRSA Culture - Final NO METHICILLIN RESISTANT STAPH AUREUS... Complete 04/20/18 15:15 Indwelling Cath Urine Culture - Final NO GROWTH AFTER 48 HOURS Complete 04/20/18 16:20 Ear Right Ear Culture - Preliminary NO GROWTH AFTER 48 HOURS Resulted 04/20/18 15:00 Rectum VRE Culture Pending Resulted 04/20/18 15:00 Rectum - Preliminary Resulted Laboratory Tests 04/21/18 16:20: Sodium Level 138, Potassium Level 3.8, Chloride Level 108H, Carbon Dioxide Level 18L, Anion Gap 13, Blood Urea Nitrogen 22H, Creatinine 1.1, Estimat Glomerular Filtration Rate , Glucose Level 181H, Calcium Level 7.8L Current Medications Medications (Trade) Dose Ordered Sig/Ibrahima Route PRN Reason Start Time Stop Time Status Last Admin Dose Admin Acetaminophen (Tylenol) 650 mg Q4H PRN ORAL fever (temp>100.5 F) 04/20/18 19:00 05/20/18 18:59 Acyclovir 400 mg/ Dextrose 110 ml @ 110 mls/hr Q12H IV 04/21/18 20:00 05/21/18 19:59 04/21/18 21:01 Albuterol/ Ipratropium (Albuterol/ Ipratropium) 3 ml Q4H PRN HHN Shortness of Breath 04/20/18 19:00 04/25/18 18:59 Ciprofloxacin (Ciloxan Opth Soln) 2 drop BID RIGHT EAR 04/21/18 18:00 04/28/18 17:59 04/21/18 18:40 Dexamethasone Sodium Phosphate (Decadron 4mg/ml vial) 4 mg Q12HR IVP 04/21/18 21:00 05/21/18 20:59 04/21/18 21:27 Dextrose (Dextrose 50%) 25 ml Q30M PRN IV Hypoglycemia 04/20/18 19:15 05/20/18 19:00 Dextrose (Dextrose 50%) 50 ml Q30M PRN IV hypoglycemia 04/20/18 19:15 05/20/18 19:14 Dextrose/ Electrolytes 1,000 ml @ 125 mls/hr Q8H IV 04/21/18 12:00 05/21/18 11:59 04/21/18 20:59 Hydralazine HCl (Apresoline) 25 mg Q8H PRN ORAL For High Blood Pressure 04/20/18 19:00 05/20/18 18:59 Insulin Aspart (NovoLOG) BEFORE MEALS AND HS SUBQ 04/21/18 06:30 05/21/18 06:29 Meropenem 1 gm/ Sodium Chloride 55 ml @ 110 mls/hr Q12H IVPB 04/21/18 14:00 04/26/18 13:59 04/22/18 01:48 Metoprolol Tartrate 10 mg/ Dextrose 65 ml @ 130 mls/hr Q12HR IVPB 04/21/18 21:00 05/21/18 20:59 04/21/18 21:29 Morphine Sulfate (Morphine Sulfate) 2 mg Q4H PRN IVP Moderate Pain (Pain Scale 4-6) 04/20/18 19:00 04/27/18 18:59 Nitroglycerin (Ntg) 0.4 mg Q5M PRN SL Prn Chest Pain 04/20/18 19:00 05/20/18 18:59 Ondansetron HCl (Zofran) 4 mg Q6H PRN IVP Nausea & Vomiting 04/20/18 19:00 05/20/18 18:59 Polyethylene Glycol (Miralax) 17 gm DAILYPRN PRN ORAL Constipation 04/20/18 19:00 05/20/18 18:59 Risperidone (RisperDAL) 1 mg BEDTIME PRN ORAL agitation 04/21/18 13:45 05/21/18 13:44 Temazepam (Restoril) 15 mg HSPRN PRN ORAL Insomnia 04/20/18 19:00 04/27/18 18:59 Vancomycin HCl (Vanco rx to dose) 1 ea DAILY PRN MISC PER PHARM 04/21/18 07:15 05/21/18 07:14 Genevieve Darling NP Apr 22, 2018 07:17
[2018-04-22 08:00] VITALS: BP 145/65
[2018-04-22 08:15] LABS: ALANINE AMINOTRANSFERASE 58 U/L (12-78); ALBUMIN 1.8 G/DL (3.4-5.0); ALBUMIN/GLOBULIN RATIO 0.4 (1.0-2.7); ALKALINE PHOSPHATASE 303 U/L (46-116); ANION GAP 11 mmol/L (5-15); ASPARTATE AMINO TRANSFERASE 60 U/L (15-37); BILIRUBIN,TOTAL 0.4 MG/DL (0.2-1.0); BLOOD UREA NITROGEN 17 mg/dL (7-18); CALCIUM 8.6 MG/DL (8.5-10.1); CARBON DIOXIDE 18 MMOL/L (21-32); CHLORIDE 109 MMOL/L (98-107); CREATININE 1.1 MG/DL (0.55-1.30); PHOSPHORUS 2.2 MG/DL (2.5-4.9); POTASSIUM 3.8 MMOL/L (3.5-5.1); SODIUM 138 MMOL/L (136-145)
[2018-04-22 08:16] LABS: HEMATOCRIT 28.4 % (37.0-47.0); HEMOGLOBIN 9.4 G/DL (12.0-16.0); MEAN CORPUSCULAR VOLUME 91 FL (80-99); PLATELET COUNT 168 K/UL (150-450); RED BLOOD COUNT 3.11 M/UL (4.20-5.40); RED CELL DISTRIBUTION WIDTH 14.3 % (11.6-14.8); WHITE BLOOD COUNT 10.6 K/UL (4.8-10.8)
[2018-04-22] MEDS: Dexamethasone 4mg/ml vial IVP SCH ×2 (08:59→21:04)
[2018-04-22] MEDS: ACYCLOVIR IV SCH ×2 (08:59→20:02)
[2018-04-22] MEDS: D5W IV SCH ×2 (08:59→20:02)
[2018-04-22] MEDS ORDERED: Acyclovir 200mg Cap ORAL SCH (09:00)
[2018-04-22] MEDS: Ciprofloxacin Opth Soln 2.5ml RIGHT EAR SCH ×2 (09:07→17:44)
[2018-04-22] MEDS: Metoprolol Tartrate 10 MG in D5W 55 ML IVPB SCH ×2 (09:50→21:06)
[2018-04-22 12:00] VITALS: BP 135/74
[2018-04-22] MEDS ORDERED: Potassium Phosphate 15 MM in NS 275 ML IV SCH (12:00)
[2018-04-22] MEDS ORDERED: Tubing IV Secondary IV ONE (13:44)
[2018-04-22] MEDS ORDERED: NS 275ml ONE (13:44)
--- NOTE | 2018-04-22 14:40 | Cardiology Progress Note ---
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 2017) carodid stenosis s/pstent on the right keep on iv abx survelience cx id following metoporlol low dose for nwo po will consider restart o antihyertensive as needed Objective Last 24 Hour Vital Signs Date Time Temp Pulse Resp B/P (MAP) Pulse Ox O2 Delivery O2 Flow Rate FiO2 04/22/18 12:00 97.0 98 22 135/74 (94) 100 04/22/18 12:00 Room Air 04/22/18 09:50 104 127/74 04/22/18 08:00 Room Air 04/22/18 08:00 97.5 81 17 145/65 (91) 100 04/22/18 06:45 89 18 Room Air 04/22/18 04:00 98.2 105 19 152/77 (102) 98 04/22/18 04:00 103 04/22/18 04:00 Room Air 04/22/18 00:00 102 04/22/18 00:00 98.3 106 20 139/90 (106) 96 04/21/18 21:29 114 146/85 04/21/18 21:00 Room Air 04/21/18 20:00 99.7 69 18 146/85 (105) 97 04/21/18 16:00 107 04/21/18 16:00 Room Air 04/21/18 16:00 98.2 112 20 133/66 (88) 94 Intake and Output 04/21/18 04/22/18 19:00 07:00 Intake Total 860 ml Output Total 175 ml Balance 685 ml Intake Oral 110 ml IV Total 750 ml Output Urine Total 175 ml # Voids 2 # Bowel Movements 1 Laboratory Tests Test 04/21/18 16:20 04/22/18 06:50 Sodium Level 138 MMOL/L (136-145) 138 MMOL/L (136-145) Potassium Level 3.8 MMOL/L (3.5-5.1) 3.8 MMOL/L (3.5-5.1) Chloride Level 108 MMOL/L (98-107) H 109 MMOL/L (98-107) H Carbon Dioxide Level 18 MMOL/L (21-32) L 18 MMOL/L (21-32) L Anion Gap 13 mmol/L (5-15) 11 mmol/L (5-15) Blood Urea Nitrogen 22 mg/dL (7-18) H 17 mg/dL (7-18) Creatinine 1.1 MG/DL (0.55-1.30) 1.1 MG/DL (0.55-1.30) Estimat Glomerular Filtration Rate mL/min (>60) mL/min (>60) Glucose Level 181 MG/DL (74-106) H 264 MG/DL (74-106) H Calcium Level 7.8 MG/DL (8.5-10.1) L 8.6 MG/DL (8.5-10.1) White Blood Count 10.6 K/UL (4.8-10.8) Red Blood Count 3.11 M/UL (4.20-5.40) L Hemoglobin 9.4 G/DL (12.0-16.0) L Hematocrit 28.4 % (37.0-47.0) L Mean Corpuscular Volume 91 FL (80-99) Mean Corpuscular Hemoglobin 30.3 PG (27.0-31.0) Mean Corpuscular Hemoglobin Concent 33.2 G/DL (32.0-36.0) Red Cell Distribution Width 14.3 % (11.6-14.8) Platelet Count 168 K/UL (150-450) Mean Platelet Volume 7.9 FL (6.5-10.1) Neutrophils (%) (Auto) % (45.0-75.0) Lymphocytes (%) (Auto) % (20.0-45.0) Monocytes (%) (Auto) % (1.0-10.0) Eosinophils (%) (Auto) % (0.0-3.0) Basophils (%) (Auto) % (0.0-2.0) Differential Total Cells Counted 100 Neutrophils % (Manual) 53 % (45-75) Lymphocytes % (Manual) 7 % (20-45) L Monocytes % (Manual) 9 % (1-10) Eosinophils % (Manual) 0 % (0-3) Basophils % (Manual) 1 % (0-2) Metamyelocytes % 1 % (0-0) H Band Neutrophils 29 % (0-8) H Platelet Estimate Adequate Platelet Morphology Normal Anisocytosis 1+ Erythrocyte Sedimentation Rate 125 MM/HR (0-30) H Phosphorus Level 2.2 MG/DL (2.5-4.9) L Magnesium Level 1.3 MG/DL (1.8-2.4) L Total Bilirubin 0.4 MG/DL (0.2-1.0) Aspartate Amino Transf (AST/SGOT) 60 U/L (15-37) H Alanine Aminotransferase (ALT/SGPT) 58 U/L (12-78) Alkaline Phosphatase 303 U/L (46-116) H C-Reactive Protein, Quantitative 21.7 mg/dL (0.00-0.90) H Total Protein 6.5 G/DL (6.4-8.2) Albumin 1.8 G/DL (3.4-5.0) L Globulin 4.7 g/dL Albumin/Globulin Ratio 0.4 (1.0-2.7) L Microbiology Date/Time Source Procedure Growth Status 04/20/18 14:30 Blood Blood Culture - Preliminary Gram Negative Tad Resulted 04/20/18 14:15 Blood Blood Culture - Preliminary Gram Negative Tad Resulted 04/20/18 15:15 Nasal Nares Influenza Types A,B Antigen (REMY) - Final Complete 04/20/18 15:00 Nasal Nares MRSA Culture - Final NO METHICILLIN RESISTANT STAPH AUREUS... Complete 04/20/18 15:15 Indwelling Cath Urine Culture - Final NO GROWTH AFTER 48 HOURS Complete 04/20/18 16:20 Ear Right Ear Culture - Preliminary NO GROWTH AFTER 48 HOURS Resulted 04/20/18 15:00 Rectum VRE Culture - Final Enterococcus Faecium - Vre Complete 04/20/18 15:00 Rectum - Final NO CARBAPENEM-RESISTANT ENTEROBACTERI... Complete Hong Coley MD Apr 22, 2018 14:40
--- NOTE | 2018-04-22 15:31 | Internal Med Progress Note ---
Subjective Physician Name Jaxon Chow Attending Physician Jaxon Chow MD Current Medications Medications (Trade) Dose Ordered Sig/Ibrahima Route PRN Reason Start Time Stop Time Status Last Admin Dose Admin Acetaminophen (Tylenol) 650 mg Q4H PRN ORAL fever (temp>100.5 F) 04/20/18 19:00 05/20/18 18:59 Acyclovir 400 mg/ Dextrose 110 ml @ 110 mls/hr Q12H IV 04/21/18 20:00 05/21/18 19:59 04/22/18 08:59 Albuterol/ Ipratropium (Albuterol/ Ipratropium) 3 ml Q4H PRN HHN Shortness of Breath 04/20/18 19:00 04/25/18 18:59 Amlodipine Besylate (Norvasc) 2.5 mg Q12H PRN ORAL sbp greater than 145 04/22/18 14:45 05/22/18 14:44 Ciprofloxacin (Ciloxan Opth Soln) 2 drop BID RIGHT EAR 04/21/18 18:00 04/28/18 17:59 04/22/18 09:07 Dexamethasone Sodium Phosphate (Decadron 4mg/ml vial) 4 mg Q12HR IVP 04/21/18 21:00 05/21/18 20:59 04/22/18 08:59 Dextrose (Dextrose 50%) 25 ml Q30M PRN IV Hypoglycemia 04/20/18 19:15 05/20/18 19:00 Dextrose (Dextrose 50%) 50 ml Q30M PRN IV hypoglycemia 04/20/18 19:15 05/20/18 19:14 Dextrose/ Electrolytes 1,000 ml @ 125 mls/hr Q8H IV 04/21/18 12:00 05/21/18 11:59 04/22/18 11:46 Hydralazine HCl (Apresoline) 25 mg Q8H PRN ORAL For High Blood Pressure 04/20/18 19:00 05/20/18 18:59 Insulin Aspart (NovoLOG) BEFORE MEALS AND HS SUBQ 04/21/18 06:30 05/21/18 06:29 Magnesium Sulfate 100 ml @ 100 mls/hr Q1H IVPB 04/22/18 20:00 04/22/18 21:59 Meropenem 1 gm/ Sodium Chloride 55 ml @ 110 mls/hr Q12H IVPB 04/21/18 14:00 04/26/18 13:59 04/22/18 14:52 Metoprolol Tartrate 10 mg/ Dextrose 65 ml @ 130 mls/hr Q12HR IVPB 04/21/18 21:00 05/21/18 20:59 04/22/18 09:50 Morphine Sulfate (Morphine Sulfate) 2 mg Q4H PRN IVP Moderate Pain (Pain Scale 4-6) 04/20/18 19:00 04/27/18 18:59 Nitroglycerin (Ntg) 0.4 mg Q5M PRN SL Prn Chest Pain 04/20/18 19:00 05/20/18 18:59 Ondansetron HCl (Zofran) 4 mg Q6H PRN IVP Nausea & Vomiting 04/20/18 19:00 05/20/18 18:59 Polyethylene Glycol (Miralax) 17 gm DAILYPRN PRN ORAL Constipation 04/20/18 19:00 05/20/18 18:59 Potassium Phosphate 15 mm/ Sodium Chloride 280 ml @ 46.67 mls/ hr ONCE IV 04/22/18 12:00 04/22/18 18:00 04/22/18 13:38 Risperidone (RisperDAL) 1 mg BEDTIME PRN ORAL agitation 04/21/18 13:45 05/21/18 13:44 Temazepam (Restoril) 15 mg HSPRN PRN ORAL Insomnia 04/20/18 19:00 04/27/18 18:59 Vancomycin HCl (Vanco rx to dose) 1 ea DAILY PRN MISC PER PHARM 04/21/18 07:15 05/21/18 07:14 Allergies: Coded Allergies: No Known Allergies (Unverified , 04/20/18) Subjective more responsive, less weak, awake, talking, family at bedside Objective Last Vital Signs Date Time Temp Pulse Resp B/P (MAP) Pulse Ox O2 Delivery O2 Flow Rate FiO2 04/22/18 12:00 97.0 98 22 135/74 (94) 100 04/22/18 12:00 Room Air 04/20/18 22:47 2.0 100 Laboratory Tests Test 04/21/18 16:20 04/22/18 06:50 Sodium Level 138 MMOL/L (136-145) 138 MMOL/L (136-145) Potassium Level 3.8 MMOL/L (3.5-5.1) 3.8 MMOL/L (3.5-5.1) Chloride Level 108 MMOL/L (98-107) H 109 MMOL/L (98-107) H Carbon Dioxide Level 18 MMOL/L (21-32) L 18 MMOL/L (21-32) L Anion Gap 13 mmol/L (5-15) 11 mmol/L (5-15) Blood Urea Nitrogen 22 mg/dL (7-18) H 17 mg/dL (7-18) Creatinine 1.1 MG/DL (0.55-1.30) 1.1 MG/DL (0.55-1.30) Estimat Glomerular Filtration Rate mL/min (>60) mL/min (>60) Glucose Level 181 MG/DL (74-106) H 264 MG/DL (74-106) H Calcium Level 7.8 MG/DL (8.5-10.1) L 8.6 MG/DL (8.5-10.1) White Blood Count 10.6 K/UL (4.8-10.8) Red Blood Count 3.11 M/UL (4.20-5.40) L Hemoglobin 9.4 G/DL (12.0-16.0) L Hematocrit 28.4 % (37.0-47.0) L Mean Corpuscular Volume 91 FL (80-99) Mean Corpuscular Hemoglobin 30.3 PG (27.0-31.0) Mean Corpuscular Hemoglobin Concent 33.2 G/DL (32.0-36.0) Red Cell Distribution Width 14.3 % (11.6-14.8) Platelet Count 168 K/UL (150-450) Mean Platelet Volume 7.9 FL (6.5-10.1) Neutrophils (%) (Auto) % (45.0-75.0) Lymphocytes (%) (Auto) % (20.0-45.0) Monocytes (%) (Auto) % (1.0-10.0) Eosinophils (%) (Auto) % (0.0-3.0) Basophils (%) (Auto) % (0.0-2.0) Differential Total Cells Counted 100 Neutrophils % (Manual) 53 % (45-75) Lymphocytes % (Manual) 7 % (20-45) L Monocytes % (Manual) 9 % (1-10) Eosinophils % (Manual) 0 % (0-3) Basophils % (Manual) 1 % (0-2) Metamyelocytes % 1 % (0-0) H Band Neutrophils 29 % (0-8) H Platelet Estimate Adequate Platelet Morphology Normal Anisocytosis 1+ Erythrocyte Sedimentation Rate 125 MM/HR (0-30) H Phosphorus Level 2.2 MG/DL (2.5-4.9) L Magnesium Level 1.3 MG/DL (1.8-2.4) L Total Bilirubin 0.4 MG/DL (0.2-1.0) Aspartate Amino Transf (AST/SGOT) 60 U/L (15-37) H Alanine Aminotransferase (ALT/SGPT) 58 U/L (12-78) Alkaline Phosphatase 303 U/L (46-116) H C-Reactive Protein, Quantitative 21.7 mg/dL (0.00-0.90) H Total Protein 6.5 G/DL (6.4-8.2) Albumin 1.8 G/DL (3.4-5.0) L Globulin 4.7 g/dL Albumin/Globulin Ratio 0.4 (1.0-2.7) L Microbiology Date/Time Source Procedure Growth Status 04/20/18 14:30 Blood Blood Culture - Preliminary Gram Negative Tad Resulted 04/20/18 14:15 Blood Blood Culture - Preliminary Gram Negative Tad Resulted 04/20/18 15:15 Nasal Nares Influenza Types A,B Antigen (REMY) - Final Complete 04/20/18 15:00 Nasal Nares MRSA Culture - Final NO METHICILLIN RESISTANT STAPH AUREUS... Complete 04/20/18 15:15 Indwelling Cath Urine Culture - Final NO GROWTH AFTER 48 HOURS Complete 04/20/18 16:20 Ear Right Ear Culture - Preliminary NO GROWTH AFTER 48 HOURS Resulted 04/20/18 15:00 Rectum VRE Culture - Final Enterococcus Faecium - Vre Complete 04/20/18 15:00 Rectum - Final NO CARBAPENEM-RESISTANT ENTEROBACTERI... Complete Intake and Output 04/21/18 04/22/18 19:00 07:00 Intake Total 860 ml Output Total 175 ml Balance 685 ml Intake Oral 110 ml IV Total 750 ml Output Urine Total 175 ml # Voids 2 # Bowel Movements 1 Objective GENERAL: awake, more responsive, Cachectic. weak and chronic illness looking. HEAD AND NECK: Pupils are reactive to light. Right side of face Hilario palsy. NECK: Supple. No JVD. LUNGS: decrease air entry at bases. Poor inspiratory effort. No wheeze or rhonchi. HEART: S1 and S2 RR, No Murmur. ABDOMEN: Soft, nondistended, and nontender. Positive bowel sounds. EXTREMITIES: No cyanosis, clubbing, or edema. Right upper extremity PAS port was noted. NEUROLOGIC: Cranial nerves II through XII grossly intact. The patient is moving all extremities spontaneously slowly. Assessment/Plan Assessment/Plan ASSESSMENT: 1. Gram negative bacteremia / Sepsis. 2. Dehydration. 3. Tachycardia. 4. Non-Hodgkin lymphoma. 5. Diabetes type 2. 6. Hypertension. 7. Anemia. 8. History of right-sided Hilario palsy. PLAN: In telemetry. F/U with laboratory and culture. Antibiotic: Meropenem, DC Vanco IV Discussion with the daughter extensively at bedside. Code status, Full Code. DVT prophylaxis. Heparin, subcu. Follow up with Dr. Negron, Pulmonary, Critical Care, and Dr. Ratliff Infectious Disease IVF Monitor BS On Metoprol to IV Jaxon Chow M.D. Jaxon Chow MD Apr 22, 2018 15:31
[2018-04-22 16:00] VITALS: BP 133/73
[2018-04-22 20:00] VITALS: BP 157/101
--- NOTE | 2018-04-22 22:45 | Consultation ---
DATE OF CONSULTATION: 04/22/2018 CARDIOLOGY CONSULTATION CONSULTING PHYSICIAN: Hong Coley M.D. REFERRING PHYSICIAN: Jaxon Chow M.D. REASON FOR REFERRAL: Aortic valve replacement in the setting of fevers and lymphoma. HISTORY OF PRESENT ILLNESS: This is a very unfortunate 83-year-old female with multiple medical problems, usually followed by Dr. Pacheco Padron. The patient has had a diagnosis of lymphoma and has been followed by Dr. Casper Adler at [facility]. This is a diffuse large B-cell lymphoma. He has received radiation therapy and chemotherapy on three separate occasions, which were complicated by different issues including otitis externa. In either case, recently she has had some episode of fevers and chills and was brought to the emergency room from Dr. Adler's office to [facility] where she has been admitted to the hospital. There has been no diarrhea, no vomiting, no sore throat, no coughing or wheezing of any significant degree according to her daughter, who is a physician in [facility] and visiting out here. The patient is usually mentally quite well and recognizes although she is hard of hearing. She has not had any chest pain. She does have some occasional dyspnea on exertion, but no PND or orthopnea, uses 3 or 4 pillows for headaches. There is no heart pounding or palpitation. No dizziness or lightheadedness. PAST MEDICAL HISTORY: Positive for anemia of chronic disease and bronchiectasis. According to Dr. Padron's notes, aortic valve replacement, cataracts surgery, endoscopy, cholecystectomy, history of peptic ulcer disease, history of GI bleeding secondary to nonsteroidal anti-inflammatory use of medications. She has a history of hyperlipidemia and hypertension. 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 ALLERGIES: She is not allergic to any medications. SOCIAL HISTORY: Does not smoke or drink alcoholic beverages. She lives with family members. Very supportive family. REVIEW OF SYSTEMS: GASTROINTESTINAL: There has been no reports of nausea, vomiting, diarrhea, or constipation. No bloody or black stool. GENITOURINARY: Does not really have any discomfort on urination. PULMONARY: No significant coughing or wheezing. CONSTITUTIONAL: Admission with fever, chills, and night sweats. NEUROLOGIC: Quite oriented according to family members usually. PHYSICAL EXAMINATION: GENERAL: Shows to be an elderly female, in no respiratory distress. NECK: Supple. No jugular venous distention. Carotid upstrokes intact. LUNGS: Appear to be clear to auscultation and percussion. CARDIAC: Regular rhythm. No heaves or thrills. Normal S1, increased P2 component. ABDOMEN: Soft, nontender. Positive bowel sounds. EXTREMITIES: There is no edema or clubbing or cyanosis. NEUROLOGICAL: She is awake, responsive, hard of hearing but is arousable and communicates with her family members. PHYSICAL EXAMINATION: VITAL SIGNS: Her blood pressure is anywhere between 127/74 to 152/77, temperature of 97 degrees, heart rates anywhere between 81 to 106. LABORATORIES: White count 10.6, hemoglobin of 9.4, and a platelet count of 168. The pH is 7.42, pCO2 32, pO2 of 37, and saturation of 70, likely venous, sodium is 138, potassium 3.8, chloride 109, bicarb 18. BUN 17, creatinine 1.1. Glucose of 264 and alkaline phosphatase was 303, it was 316 before. AST and ALT within normal limits. CRP of 21, troponin of 0.068, up from 0.041, both of which are still really not diagnostic criteria. INR is 1.1, PTT of 37. Imaging has been performed. A chest x-ray read by Radiology, left basal atelectasis. No acute processes. PICC line in place. An echocardiogram has been performed and interpreted showed normal wall motion, ejection fraction of 50% to 60%. Heavy mitral annular calcification and heavily thickened mitral valve leaflet, focal aortic cusp sclerosis, bioprosthetic aortic valve with peak gradient 52 and mean gradient of 29, moderate to severe mitral regurgitation and mitral valve area of 1.8 with a peak of 21 and a mean gradient of 9 mmHg, gradient being documented. EKG performed in the emergency room on the shows tremor artifact, likely secondary to fevers. Otherwise appears to be regular, consistent with sinus tachycardia. Her telemetry data basically shows sinus rhythm at this time. Really, no ST or T-wave abnormalities. Blood cultures positive for gram-negative rods on 2 separate occasions. ASSESSMENT AND PLAN: 1. Gram negative bacteremia. 2. Large cell B-cell lymphoma. 3. Aortic valve replacement. 4. Moderate to severe mitral regurgitation with questionable increased echoes. 5. Sinus tachycardia. 6. Diabetes mellitus. 7. Hypertension. 8. Hyperlipidemia. 9. History of ITP. This patient was seen in cardiac consultation. The patient's echocardiogram was interpreted as showing increasing mitral valve echoes, of course which is calcified and somewhat thickened anyway. The blood cultures are growing gram-negative rods, being evaluated for possibility of PICC line infection by Infectious Disease. I will follow the patient along with you. She does have a history of bioprosthetic valve and abnormality on the mitral valve is noted. We will determine whether further evaluation of valvular heart disease needs to be performed based on followup studies and recommendations of Infectious Disease. Repeat blood cultures for surveillance have been ordered and the patient will be followed. She does have a history of coronary calcification with of approximately 194. Previously, EKGs did not show any evidence of ischemia and her cardiac enzymes are minimally abnormal, a third set will be ordered. I doubt that this primary event is likely demand related, treatment for underlying infection as the source to be determined. Hong Coley M.D. DR: MELVINA JOB#: [id number] CC:
[2018-04-23] VITALS (7 sets, daily range): BP systolic 127–149; BP diastolic 73–83
[2018-04-23] MEDS: Meropenem 1 GM in NS 55 ML IVPB SCH ×2 (01:41→13:55)
[2018-04-23] MEDS: NovoLOG Insulin Flexpen SUBQ SCH ×4 (06:05→21:17)
--- NOTE | 2018-04-23 07:44 | Pulmonology Progress Note ---
Assessment/Plan Assessment/Plan ASSESSMENT Sepsis Dehydration Non-Hodgkin lymphoma Hypertension Anemia Recent history of Hilario policy, right sided Elevated troponin e/lyte imbalance dysphagia malnutrition PLAN OF CARE tele IVF, monitor renal parameters lytes; correct electrolytes prn, avoid nephrotoxic empiric abx, f/up with cx influenza screen negative ear cx negative; urine cx negative; blood cx negative ID follows trend troponin - per cardio, follows BP management with BB and optimize further as needed DVT prophylaxis O2 HHN prn swallow eval diet changed to pureed while waiting for BSSE dietary eval strict aspiration precautions fup with CXR Mg and P stable after replacement BS management with SSI pain management bowel regimen supportive care case discussed and evaluated by supervising physician Subjective Allergies: Coded Allergies: No Known Allergies (Unverified , 04/20/18) Subjective no signs of distress mild leuk, no fevers started on pureed diet with aspiration precautions while waiting for swallow eval daughter in law at the bedside Objective Last 24 Hour Vital Signs Date Time Temp Pulse Resp B/P (MAP) Pulse Ox O2 Delivery O2 Flow Rate FiO2 04/23/18 07:33 77 18 Room Air 04/23/18 04:00 96.4 89 20 138/75 (96) 99 04/23/18 04:00 Room Air 04/23/18 03:41 89 04/23/18 00:00 Room Air 04/23/18 00:00 97.1 91 20 140/81 (100) 99 04/22/18 23:35 90 04/22/18 21:06 104 157/101 04/22/18 20:47 106 04/22/18 20:10 85 18 Room Air 04/22/18 20:00 Room Air 04/22/18 20:00 97.8 104 20 157/101 (119) 98 04/22/18 16:00 Room Air 04/22/18 16:00 90 04/22/18 16:00 97.5 98 23 133/73 (93) 100 04/22/18 12:00 97.0 98 22 135/74 (94) 100 04/22/18 12:00 Room Air 04/22/18 12:00 97 04/22/18 09:50 104 127/74 04/22/18 08:00 Room Air 04/22/18 08:00 107 04/22/18 08:00 97.5 81 17 145/65 (91) 100 Intake and Output 04/22/18 04/23/18 19:00 07:00 Intake Total 1725 ml 1100 ml Output Total 600 ml 1100 ml Balance 1125 ml 0 ml Intake Oral 100 ml IV Total 1625 ml 1100 ml Output Urine Total 600 ml 1100 ml # Bowel Movements 1 1 Objective General Appearance: no acute distress, other - awake, responsive to verbal and tactile stimuli, confused HEENT: normocephalic, atraumatic Respiratory/Chest: lungs clear, no respiratory distress, no accessory muscle use Cardiovascular: normal rate - ST on tele 100-106 Neurologic/Psychiatric: abnormal gait, other - awake, confused Musculoskeletal: atrophy - BLE Microbiology Date/Time Source Procedure Growth Status 04/21/18 16:30 Blood Blood Culture - Preliminary NO GROWTH AFTER 24 HOURS Resulted 04/21/18 16:20 Blood Blood Culture - Preliminary NO GROWTH AFTER 24 HOURS Resulted 04/20/18 14:30 Blood Blood Culture - Final Pseudomonas Aeruginosa Complete 04/20/18 14:15 Blood Blood Culture - Final Pseudomonas Aeruginosa Complete 04/20/18 15:15 Nasal Nares Influenza Types A,B Antigen (REMY) - Final Complete 04/20/18 15:00 Nasal Nares MRSA Culture - Final NO METHICILLIN RESISTANT STAPH AUREUS... Complete 04/20/18 15:15 Indwelling Cath Urine Culture - Final NO GROWTH AFTER 48 HOURS Complete 04/20/18 16:20 Ear Right Ear Culture - Preliminary NO GROWTH AFTER 48 HOURS Resulted 04/20/18 15:00 Rectum VRE Culture - Final Enterococcus Faecium - Vre Complete 04/20/18 15:00 Rectum - Final NO CARBAPENEM-RESISTANT ENTEROBACTERI... Complete Current Medications Medications (Trade) Dose Ordered Sig/Ibrahima Route PRN Reason Start Time Stop Time Status Last Admin Dose Admin Acetaminophen (Tylenol) 650 mg Q4H PRN ORAL fever (temp>100.5 F) 04/20/18 19:00 05/20/18 18:59 Acyclovir 400 mg/ Dextrose 110 ml @ 110 mls/hr Q12H IV 04/21/18 20:00 05/21/18 19:59 04/22/18 20:02 Albuterol/ Ipratropium (Albuterol/ Ipratropium) 3 ml Q4H PRN HHN Shortness of Breath 04/20/18 19:00 04/25/18 18:59 Amlodipine Besylate (Norvasc) 2.5 mg Q12H PRN ORAL sbp greater than 145 04/22/18 14:45 05/22/18 14:44 Ciprofloxacin (Ciloxan Opth Soln) 2 drop BID RIGHT EAR 04/21/18 18:00 04/28/18 17:59 04/22/18 17:44 Dexamethasone Sodium Phosphate (Decadron 4mg/ml vial) 4 mg Q12HR IVP 04/21/18 21:00 05/21/18 20:59 04/22/18 21:04 Dextrose (Dextrose 50%) 25 ml Q30M PRN IV Hypoglycemia 04/20/18 19:15 05/20/18 19:00 Dextrose (Dextrose 50%) 50 ml Q30M PRN IV hypoglycemia 04/20/18 19:15 05/20/18 19:14 Dextrose/ Electrolytes 1,000 ml @ 125 mls/hr Q8H IV 04/21/18 12:00 05/21/18 11:59 04/23/18 04:18 Hydralazine HCl (Apresoline) 25 mg Q8H PRN ORAL For High Blood Pressure 04/20/18 19:00 05/20/18 18:59 Insulin Aspart (NovoLOG) BEFORE MEALS AND HS SUBQ 04/21/18 06:30 05/21/18 06:29 04/23/18 06:05 Meropenem 1 gm/ Sodium Chloride 55 ml @ 110 mls/hr Q12H IVPB 04/21/18 14:00 04/26/18 13:59 04/23/18 01:41 Metoprolol Tartrate 10 mg/ Dextrose 65 ml @ 130 mls/hr Q12HR IVPB 04/21/18 21:00 05/21/18 20:59 04/22/18 21:06 Morphine Sulfate (Morphine Sulfate) 2 mg Q4H PRN IVP Moderate Pain (Pain Scale 4-6) 04/20/18 19:00 04/27/18 18:59 Nitroglycerin (Ntg) 0.4 mg Q5M PRN SL Prn Chest Pain 04/20/18 19:00 05/20/18 18:59 Ondansetron HCl (Zofran) 4 mg Q6H PRN IVP Nausea & Vomiting 04/20/18 19:00 05/20/18 18:59 Polyethylene Glycol (Miralax) 17 gm DAILYPRN PRN ORAL Constipation 04/20/18 19:00 05/20/18 18:59 Risperidone (RisperDAL) 1 mg BEDTIME PRN ORAL agitation 04/21/18 13:45 05/21/18 13:44 Temazepam (Restoril) 15 mg HSPRN PRN ORAL Insomnia 04/20/18 19:00 04/27/18 18:59 Vancomycin HCl (Vanco rx to dose) 1 ea DAILY PRN MISC PER PHARM 04/21/18 07:15 05/21/18 07:14 Genevieve Darling NP Apr 23, 2018 07:44
[2018-04-23 07:49] LABS: HEMATOCRIT 27.4 % (37.0-47.0); HEMOGLOBIN 9.2 G/DL (12.0-16.0); MEAN CORPUSCULAR VOLUME 91 FL (80-99); PLATELET COUNT 168 K/UL (150-450); RED BLOOD COUNT 3.01 M/UL (4.20-5.40); RED CELL DISTRIBUTION WIDTH 13.9 % (11.6-14.8); WHITE BLOOD COUNT 11.6 K/UL (4.8-10.8)
[2018-04-23 08:14] LABS: ANION GAP 11 mmol/L (5-15); BLOOD UREA NITROGEN 15 mg/dL (7-18); CALCIUM 8.6 MG/DL (8.5-10.1); CARBON DIOXIDE 18 MMOL/L (21-32); CHLORIDE 110 MMOL/L (98-107); CREATININE 1.1 MG/DL (0.55-1.30); PHOSPHORUS 2.9 MG/DL (2.5-4.9); POTASSIUM 4.2 MMOL/L (3.5-5.1); SODIUM 139 MMOL/L (136-145)
[2018-04-23] MEDS: ACYCLOVIR IV SCH ×2 (08:51→19:40)
[2018-04-23] MEDS: Ciprofloxacin Opth Soln 2.5ml RIGHT EAR SCH ×2 (08:51→18:09)
[2018-04-23] MEDS: D5W IV SCH ×2 (08:51→19:40)
[2018-04-23] MEDS: Dexamethasone 4mg/ml vial IVP SCH ×2 (10:07→21:18)
[2018-04-23] MEDS ORDERED: Metoprolol Tartrate 10 MG in D5W 55 ML IVPB SCH (11:00)
[2018-04-23] MEDS ORDERED: Albuterol/Ipratropium 3ml neb HHN PRN (11:00)
--- NOTE | 2018-04-23 15:03 | Cardiology Progress Note ---
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 2017) carotid stenosis s/p stent on the right keep on iv abx per ID surveillance cx neg so far id following metoporlol low dose but unable to take po is iv not po as not able to swallow will switch to 5 mg q6h bp has been ok will derease ivf id input reg source of bacteremia has issue with swallowing even small pills per family swallow eval needed Subjective Cardiovascular: Denies: chest pain Respiratory: Denies: shortness of breath Gastrointestinal/Abdominal: Denies: abdominal pain Genitourinary: Denies: burning Objective Last 24 Hour Vital Signs Date Time Temp Pulse Resp B/P (MAP) Pulse Ox O2 Delivery O2 Flow Rate FiO2 04/23/18 12:00 97.4 90 18 127/73 (91) 99 04/23/18 11:46 90 127/73 04/23/18 11:46 92 04/23/18 09:00 Room Air 04/23/18 08:00 97.4 77 20 143/80 (101) 98 04/23/18 07:56 97 04/23/18 07:33 77 18 Room Air 04/23/18 04:00 96.4 89 20 138/75 (96) 99 04/23/18 04:00 Room Air 04/23/18 03:41 89 04/23/18 00:00 Room Air 04/23/18 00:00 97.1 91 20 140/81 (100) 99 04/22/18 23:35 90 04/22/18 21:06 104 157/101 04/22/18 20:47 106 04/22/18 20:10 85 18 Room Air 04/22/18 20:00 Room Air 04/22/18 20:00 97.8 104 20 157/101 (119) 98 04/22/18 16:00 Room Air 04/22/18 16:00 90 04/22/18 16:00 97.5 98 23 133/73 (93) 100 General Appearance: no apparent distress, alert, obese, patient on isolation Neck: supple Cardiovascular: normal rate, regular rhythm Respiratory/Chest: lungs clear, normal breath sounds Abdomen: normal bowel sounds, non tender, soft Extremities: no swelling Intake and Output 04/22/18 04/23/18 18:59 06:59 Intake Total 1725 ml 1100 ml Output Total 600 ml 1100 ml Balance 1125 ml 0 ml Intake Oral 100 ml IV Total 1625 ml 1100 ml Output Urine Total 600 ml 1100 ml # Bowel Movements 1 1 Laboratory Tests Test 04/23/18 06:00 White Blood Count 11.6 K/UL (4.8-10.8) H Red Blood Count 3.01 M/UL (4.20-5.40) L Hemoglobin 9.2 G/DL (12.0-16.0) L Hematocrit 27.4 % (37.0-47.0) L Mean Corpuscular Volume 91 FL (80-99) Mean Corpuscular Hemoglobin 30.5 PG (27.0-31.0) Mean Corpuscular Hemoglobin Concent 33.5 G/DL (32.0-36.0) Red Cell Distribution Width 13.9 % (11.6-14.8) Platelet Count 168 K/UL (150-450) Mean Platelet Volume 7.2 FL (6.5-10.1) Neutrophils (%) (Auto) % (45.0-75.0) Lymphocytes (%) (Auto) % (20.0-45.0) Monocytes (%) (Auto) % (1.0-10.0) Eosinophils (%) (Auto) % (0.0-3.0) Basophils (%) (Auto) % (0.0-2.0) Differential Total Cells Counted 100 Neutrophils % (Manual) 69 % (45-75) Lymphocytes % (Manual) 7 % (20-45) L Monocytes % (Manual) 2 % (1-10) Eosinophils % (Manual) 0 % (0-3) Basophils % (Manual) 0 % (0-2) Band Neutrophils 22 % (0-8) H Platelet Estimate Adequate Platelet Morphology Normal Hypochromasia 1+ Sodium Level 139 MMOL/L (136-145) Potassium Level 4.2 MMOL/L (3.5-5.1) Chloride Level 110 MMOL/L (98-107) H Carbon Dioxide Level 18 MMOL/L (21-32) L Anion Gap 11 mmol/L (5-15) Blood Urea Nitrogen 15 mg/dL (7-18) Creatinine 1.1 MG/DL (0.55-1.30) Estimat Glomerular Filtration Rate mL/min (>60) Glucose Level 269 MG/DL (74-106) H Calcium Level 8.6 MG/DL (8.5-10.1) Phosphorus Level 2.9 MG/DL (2.5-4.9) Magnesium Level 1.9 MG/DL (1.8-2.4) Microbiology Date/Time Source Procedure Growth Status 04/21/18 16:30 Blood Blood Culture - Preliminary NO GROWTH AFTER 24 HOURS Resulted 04/21/18 16:20 Blood Blood Culture - Preliminary NO GROWTH AFTER 24 HOURS Resulted 04/20/18 15:15 Nasal Nares Influenza Types A,B Antigen (REMY) - Final Complete 04/20/18 15:00 Nasal Nares MRSA Culture - Final NO METHICILLIN RESISTANT STAPH AUREUS... Complete 04/20/18 15:15 Indwelling Cath Urine Culture - Final NO GROWTH AFTER 48 HOURS Complete 04/20/18 16:20 Ear Right Ear Culture - Preliminary NO GROWTH AFTER 72 HOURS Resulted 04/20/18 15:00 Rectum VRE Culture - Final Enterococcus Faecium - Vre Complete 04/20/18 15:00 Rectum - Final NO CARBAPENEM-RESISTANT ENTEROBACTERI... Complete Hong Coley MD Apr 23, 2018 15:03
[2018-04-23] MEDS: Metoprolol Tartrate 5 MG in D5W 55 ML IVPB SCH ×2 (18:09→23:43)
--- NOTE | 2018-04-23 22:30 | Internal Med Progress Note ---
Subjective Physician Name Jaxon Chow Attending Physician Jaxon Chow MD Current Medications Medications (Trade) Dose Ordered Sig/Ibrahima Route PRN Reason Start Time Stop Time Status Last Admin Dose Admin Acetaminophen (Tylenol) 650 mg Q4H PRN ORAL fever (temp>100.5 F) 04/20/18 19:00 05/20/18 18:59 Acyclovir 400 mg/ Dextrose 110 ml @ 110 mls/hr Q12H IV 04/21/18 20:00 05/21/18 19:59 04/23/18 19:40 Albuterol/ Ipratropium (Albuterol/ Ipratropium) 3 ml Q4H PRN HHN Shortness of Breath 04/23/18 11:00 04/28/18 10:59 Amlodipine Besylate (Norvasc) 2.5 mg Q12H PRN ORAL sbp greater than 145 04/22/18 14:45 05/22/18 14:44 Ciprofloxacin (Ciloxan Opth Soln) 2 drop BID RIGHT EAR 04/21/18 18:00 04/28/18 17:59 04/23/18 18:09 Dexamethasone Sodium Phosphate (Decadron 4mg/ml vial) 4 mg Q12HR IVP 04/21/18 21:00 05/21/18 20:59 04/23/18 21:18 Dextrose (Dextrose 50%) 25 ml Q30M PRN IV Hypoglycemia 04/20/18 19:15 05/20/18 19:00 Dextrose (Dextrose 50%) 50 ml Q30M PRN IV hypoglycemia 04/20/18 19:15 05/20/18 19:14 Dextrose/ Electrolytes 1,000 ml @ 75 mls/hr [id number] IV 04/23/18 15:08 05/23/18 15:07 04/23/18 16:33 Hydralazine HCl (Apresoline) 25 mg Q8H PRN ORAL For High Blood Pressure 04/20/18 19:00 05/20/18 18:59 Insulin Aspart (NovoLOG) BEFORE MEALS AND HS SUBQ 04/21/18 06:30 05/21/18 06:29 04/23/18 21:17 Meropenem 1 gm/ Sodium Chloride 55 ml @ 110 mls/hr Q12H IVPB 04/21/18 14:00 04/26/18 13:59 04/23/18 13:55 Metoprolol Tartrate 5 mg/ Dextrose 60 ml @ 130 mls/hr Q6HR IVPB 04/23/18 18:00 05/23/18 17:59 04/23/18 18:09 Morphine Sulfate (Morphine Sulfate) 2 mg Q4H PRN IVP Moderate Pain (Pain Scale 4-6) 04/20/18 19:00 04/27/18 18:59 Nitroglycerin (Ntg) 0.4 mg Q5M PRN SL Prn Chest Pain 04/20/18 19:00 05/20/18 18:59 Ondansetron HCl (Zofran) 4 mg Q6H PRN IVP Nausea & Vomiting 04/20/18 19:00 05/20/18 18:59 Polyethylene Glycol (Miralax) 17 gm DAILYPRN PRN ORAL Constipation 04/20/18 19:00 05/20/18 18:59 Risperidone (RisperDAL) 1 mg BEDTIME PRN ORAL agitation 04/21/18 13:45 05/21/18 13:44 Temazepam (Restoril) 15 mg HSPRN PRN ORAL Insomnia 04/20/18 19:00 04/27/18 18:59 Allergies: Coded Allergies: No Known Allergies (Unverified , 04/20/18) Subjective Responsive, less weak, awake, talking, Sons at bedside Objective Last Vital Signs Date Time Temp Pulse Resp B/P (MAP) Pulse Ox O2 Delivery O2 Flow Rate FiO2 04/23/18 21:00 Room Air 04/23/18 20:00 97.2 96 22 149/82 (104) 100 04/20/18 22:47 2.0 100 Laboratory Tests Test 04/23/18 06:00 White Blood Count 11.6 K/UL (4.8-10.8) H Red Blood Count 3.01 M/UL (4.20-5.40) L Hemoglobin 9.2 G/DL (12.0-16.0) L Hematocrit 27.4 % (37.0-47.0) L Mean Corpuscular Volume 91 FL (80-99) Mean Corpuscular Hemoglobin 30.5 PG (27.0-31.0) Mean Corpuscular Hemoglobin Concent 33.5 G/DL (32.0-36.0) Red Cell Distribution Width 13.9 % (11.6-14.8) Platelet Count 168 K/UL (150-450) Mean Platelet Volume 7.2 FL (6.5-10.1) Neutrophils (%) (Auto) % (45.0-75.0) Lymphocytes (%) (Auto) % (20.0-45.0) Monocytes (%) (Auto) % (1.0-10.0) Eosinophils (%) (Auto) % (0.0-3.0) Basophils (%) (Auto) % (0.0-2.0) Differential Total Cells Counted 100 Neutrophils % (Manual) 69 % (45-75) Lymphocytes % (Manual) 7 % (20-45) L Monocytes % (Manual) 2 % (1-10) Eosinophils % (Manual) 0 % (0-3) Basophils % (Manual) 0 % (0-2) Band Neutrophils 22 % (0-8) H Platelet Estimate Adequate Platelet Morphology Normal Hypochromasia 1+ Sodium Level 139 MMOL/L (136-145) Potassium Level 4.2 MMOL/L (3.5-5.1) Chloride Level 110 MMOL/L (98-107) H Carbon Dioxide Level 18 MMOL/L (21-32) L Anion Gap 11 mmol/L (5-15) Blood Urea Nitrogen 15 mg/dL (7-18) Creatinine 1.1 MG/DL (0.55-1.30) Estimat Glomerular Filtration Rate mL/min (>60) Glucose Level 269 MG/DL (74-106) H Calcium Level 8.6 MG/DL (8.5-10.1) Phosphorus Level 2.9 MG/DL (2.5-4.9) Magnesium Level 1.9 MG/DL (1.8-2.4) Microbiology Date/Time Source Procedure Growth Status 04/21/18 16:30 Blood Blood Culture - Preliminary NO GROWTH AFTER 24 HOURS Resulted 04/21/18 16:20 Blood Blood Culture - Preliminary NO GROWTH AFTER 24 HOURS Resulted Intake and Output 04/22/18 04/23/18 19:00 07:00 Intake Total 1725 ml 1100 ml Output Total 600 ml 1100 ml Balance 1125 ml 0 ml Intake Oral 100 ml IV Total 1625 ml 1100 ml Output Urine Total 600 ml 1100 ml # Bowel Movements 1 1 Objective GENERAL: awake, responsive, Cachectic. HEAD AND NECK: PERRLA, EOMI, Right side of face Hilario palsy. NECK: Supple. No JVD. LUNGS: decrease air entry at bases. Fair inspiratory effort. No wheeze or rhonchi. HEART: S1 and S2 RR, No Murmur. ABDOMEN: Soft, nondistended, and nontender. Positive bowel sounds. EXTREMITIES: No cyanosis, clubbing, or edema. Right upper extremity PAS port, NEUROLOGIC: Cranial nerves II through XII grossly intact. Moving all extremities slowly. Assessment/Plan Assessment/Plan ASSESSMENT: 1. PSEUDOMONAS AERUGINOSA bacteremia / Sepsis. 2. Dehydration. 3. Tachycardia. 4. Non-Hodgkin lymphoma. 5. Diabetes type 2. 6. Hypertension. 7. Anemia. 8. History of right-sided Hilario palsy. PLAN: In telemetry. F/U with laboratory and culture. Antibiotic: Meropenem, Discussion with the daughter extensively at bedside. Code status, Full Code. DVT prophylaxis. Heparin, subcu. Follow up with Dr. Negron, Pulmonary, Critical Care, Dr. Coley , cardiology , and Dr. Ratliff Infectious Disease IVF Monitor BS On Metoprol to IV Jaxon Chow M.D. Jaxon Chow MD Apr 23, 2018 22:30
[2018-04-24] VITALS (8 sets, daily range): BP systolic 138–164; BP diastolic 66–95
[2018-04-24] MEDS: Meropenem 1 GM in NS 55 ML IVPB SCH (01:27)
[2018-04-24 04:41] LABS: HEMATOCRIT 26.7 % (37.0-47.0); HEMOGLOBIN 8.9 G/DL (12.0-16.0); MEAN CORPUSCULAR VOLUME 92 FL (80-99); PLATELET COUNT 176 K/UL (150-450); RED BLOOD COUNT 2.92 M/UL (4.20-5.40); RED CELL DISTRIBUTION WIDTH 13.9 % (11.6-14.8); WHITE BLOOD COUNT 9.5 K/UL (4.8-10.8)
[2018-04-24 04:57] LABS: ANION GAP 11 mmol/L (5-15); BLOOD UREA NITROGEN 17 mg/dL (7-18); CALCIUM 8.6 MG/DL (8.5-10.1); CARBON DIOXIDE 19 MMOL/L (21-32); CHLORIDE 109 MMOL/L (98-107); POTASSIUM 4.5 MMOL/L (3.5-5.1); SODIUM 139 MMOL/L (136-145)
[2018-04-24] MEDS: Metoprolol Tartrate 5 MG in D5W 55 ML IVPB SCH ×2 (05:21→11:42)
[2018-04-24] MEDS: NovoLOG Insulin Flexpen SUBQ SCH ×4 (06:21→21:29)
[2018-04-24] MEDS: D5W IV SCH ×2 (08:13→20:04)
[2018-04-24] MEDS: Dexamethasone 4mg/ml vial IVP SCH ×2 (08:13→20:04)
[2018-04-24] MEDS: Ciprofloxacin Opth Soln 2.5ml RIGHT EAR SCH ×2 (08:13→18:28)
[2018-04-24] MEDS: ACYCLOVIR IV SCH ×2 (08:13→20:04)
[2018-04-24] MEDS ORDERED: Isovue-300 100ml vial INJ PRN ×4 (11:15→14:30)
--- NOTE | 2018-04-24 11:16 | Infectious Diseases Prog Note ---
Assessment/Plan Assessment/Plan Assessment/Plan Severe sepsis, improving- 2ry to PsA bacteremia (?source: from urine vs intraabdominal vs port infection vs ear infection), ? endocarditis; immunocompromised host -04/20 Bcx 2/4 PsA (bose S); 04/21 NTD u/a wbc 5-10, nit neg, leuk +1; ucx Neg influenza sc neg -2d echo: Heavily thickened mitral valve leaflets with reduced excursion. Echogenic material noted on posterior mitral valve leaflet. Heavy mitral annulus and aortic root calcification. Bioprosthetic aortic valve replacement noted -CXR: Left basilar atelectasis. No acute process otherwise. 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 Will continue to follow along with you. Discussed with RN Subjective Allergies: Coded Allergies: No Known Allergies (Unverified , 04/20/18) Subjective afebrile >72hrs leukocytosis resolved repeat bcx NTD Objective Vital Signs Last 24 Hour Vital Signs Date Time Temp Pulse Resp B/P (MAP) Pulse Ox O2 Delivery O2 Flow Rate FiO2 04/24/18 09:08 139/73 (95) 04/24/18 09:00 Room Air 04/24/18 07:56 97.3 91 18 162/95 (117) 100 04/24/18 07:47 88 04/24/18 07:45 73 17 Room Air 21 04/24/18 05:21 79 153/70 04/24/18 04:00 97.9 79 18 153/70 (97) 99 04/24/18 03:35 91 04/24/18 00:00 97.0 87 20 138/66 (90) 98 04/23/18 23:43 84 149/87 04/23/18 23:23 84 04/23/18 21:22 79 18 Room Air 04/23/18 21:00 Room Air 04/23/18 20:13 93 04/23/18 20:00 97.2 96 22 149/82 (104) 100 04/23/18 18:09 95 146/82 04/23/18 18:08 95 146/82 (103) 04/23/18 16:00 97.6 106 20 145/83 (103) 98 04/23/18 15:33 85 04/23/18 12:00 97.4 90 18 127/73 (91) 99 04/23/18 11:46 90 127/73 04/23/18 11:46 92 Height (Feet): 4 Height (Inches): 11.00 Weight (Pounds): 130 Objective GENERAL: The patient is cachectic. The patient has chronic illness. HEAD AND NECK: Pupils are reactive to light. Right side of face, she has Hilario palsy. R ear with minimal yellowish drainage NECK: Supple. No JVD. LUNGS: Good air entry. Poor inspiratory effort. No wheeze or rhonchi. HEART: S1 and S2. Tachycardic. ABDOMEN: Soft, nondistended, and nontender. Positive bowel sounds. EXTREMITIES: No cyanosis, clubbing, or edema. Right upper extremity PAS port was noted. Microbiology Date/Time Source Procedure Growth Status 04/21/18 16:30 Blood Blood Culture - Preliminary NO GROWTH AFTER 48 HOURS Resulted 04/21/18 16:20 Blood Blood Culture - Preliminary NO GROWTH AFTER 48 HOURS Resulted Laboratory Tests Test 04/24/18 04:00 White Blood Count 9.5 K/UL (4.8-10.8) Red Blood Count 2.92 M/UL (4.20-5.40) L Hemoglobin 8.9 G/DL (12.0-16.0) L Hematocrit 26.7 % (37.0-47.0) L Mean Corpuscular Volume 92 FL (80-99) Mean Corpuscular Hemoglobin 30.4 PG (27.0-31.0) Mean Corpuscular Hemoglobin Concent 33.2 G/DL (32.0-36.0) Red Cell Distribution Width 13.9 % (11.6-14.8) Platelet Count 176 K/UL (150-450) Mean Platelet Volume 7.1 FL (6.5-10.1) Neutrophils (%) (Auto) % (45.0-75.0) Lymphocytes (%) (Auto) % (20.0-45.0) Monocytes (%) (Auto) % (1.0-10.0) Eosinophils (%) (Auto) % (0.0-3.0) Basophils (%) (Auto) % (0.0-2.0) Differential Total Cells Counted 100 Neutrophils % (Manual) 83 % (45-75) H Lymphocytes % (Manual) 7 % (20-45) L Monocytes % (Manual) 5 % (1-10) Eosinophils % (Manual) 0 % (0-3) Basophils % (Manual) 0 % (0-2) Band Neutrophils 5 % (0-8) Platelet Estimate Adequate Platelet Morphology Normal Sodium Level 139 MMOL/L (136-145) Potassium Level 4.5 MMOL/L (3.5-5.1) Chloride Level 109 MMOL/L (98-107) H Carbon Dioxide Level 19 MMOL/L (21-32) L Anion Gap 11 mmol/L (5-15) Blood Urea Nitrogen 17 mg/dL (7-18) Creatinine 1.0 MG/DL (0.55-1.30) Estimat Glomerular Filtration Rate mL/min (>60) Glucose Level 178 MG/DL (74-106) H Calcium Level 8.6 MG/DL (8.5-10.1) Current Medications Medications (Trade) Dose Ordered Sig/Ibrahima Route PRN Reason Start Time Stop Time Status Last Admin Dose Admin Acetaminophen (Tylenol) 650 mg Q4H PRN ORAL fever (temp>100.5 F) 04/20/18 19:00 05/20/18 18:59 Acyclovir 400 mg/ Dextrose 110 ml @ 110 mls/hr Q12H IV 04/21/18 20:00 05/21/18 19:59 04/24/18 08:13 Albuterol/ Ipratropium (Albuterol/ Ipratropium) 3 ml Q4H PRN HHN Shortness of Breath 04/23/18 11:00 04/28/18 10:59 Amlodipine Besylate (Norvasc) 2.5 mg Q12H PRN ORAL sbp greater than 145 04/22/18 14:45 05/22/18 14:44 Ciprofloxacin (Ciloxan Opth Soln) 2 drop BID RIGHT EAR 04/21/18 18:00 04/28/18 17:59 04/24/18 08:13 Dexamethasone Sodium Phosphate (Decadron 4mg/ml vial) 4 mg Q12HR IVP 04/21/18 21:00 05/21/18 20:59 04/24/18 08:13 Dextrose (Dextrose 50%) 25 ml Q30M PRN IV Hypoglycemia 04/20/18 19:15 05/20/18 19:00 Dextrose (Dextrose 50%) 50 ml Q30M PRN IV hypoglycemia 04/20/18 19:15 05/20/18 19:14 Dextrose/ Electrolytes 1,000 ml @ 75 mls/hr [id number] IV 04/23/18 15:08 05/23/18 15:07 04/23/18 23:55 Hydralazine HCl (Apresoline) 25 mg Q8H PRN ORAL For High Blood Pressure 04/20/18 19:00 05/20/18 18:59 Insulin Aspart (NovoLOG) BEFORE MEALS AND HS SUBQ 04/21/18 06:30 05/21/18 06:29 04/24/18 06:21 Meropenem 1 gm/ Sodium Chloride 55 ml @ 110 mls/hr Q12H IVPB 04/21/18 14:00 04/26/18 13:59 04/24/18 01:27 Metoprolol Tartrate 5 mg/ Dextrose 60 ml @ 130 mls/hr Q6HR IVPB 04/23/18 18:00 05/23/18 17:59 04/24/18 05:21 Morphine Sulfate (Morphine Sulfate) 2 mg Q4H PRN IVP Moderate Pain (Pain Scale 4-6) 04/20/18 19:00 04/27/18 18:59 04/24/18 01:28 Nitroglycerin (Ntg) 0.4 mg Q5M PRN SL Prn Chest Pain 04/20/18 19:00 05/20/18 18:59 Ondansetron HCl (Zofran) 4 mg Q6H PRN IVP Nausea & Vomiting 04/20/18 19:00 05/20/18 18:59 Polyethylene Glycol (Miralax) 17 gm DAILYPRN PRN ORAL Constipation 04/20/18 19:00 05/20/18 18:59 Risperidone (RisperDAL) 1 mg BEDTIME PRN ORAL agitation 04/21/18 13:45 05/21/18 13:44 Temazepam (Restoril) 15 mg HSPRN PRN ORAL Insomnia 04/20/18 19:00 04/27/18 18:59 Lakesha Ratliff M.D. Apr 24, 2018 11:16
--- NOTE | 2018-04-24 11:42 | Diagnostic Imaging Report ---
Indication: Shortness of breath Technique: One view of the chest Comparison: 04/20/2018 Findings: There are surgical clips in the left axilla. There is evidence of prior CABG. There is a right arm PICC demonstrated. No definite acute infiltrates, effusions, or congestion. There are mitral annular calcifications. There are cholecystectomy clips. There is central bronchial wall thickening, unchanged. Impression: No definite acute process. Stable findings as described
--- NOTE | 2018-04-24 13:32 | Pulmonology Progress Note ---
Assessment/Plan Problems: (1) Septic shock (2) Non-Hodgkin lymphoma (3) History of hypertension (4) CAD (coronary artery disease) (5) Diabetes mellitus Assessment/Plan [place] sensitive pseudomonas continue abx [place] CT scan ordered to look for the source of Abx sliding scale swallow evaluation med/surg Subjective ROS Limited/Unobtainable: Yes Interval Events: d/w daughter at the bed site Allergies: Coded Allergies: No Known Allergies (Unverified , 04/20/18) Objective Last 24 Hour Vital Signs Date Time Temp Pulse Resp B/P (MAP) Pulse Ox O2 Delivery O2 Flow Rate FiO2 04/24/18 11:42 95 145/85 04/24/18 11:38 97.3 95 20 145/85 (105) 100 04/24/18 09:08 139/73 (95) 04/24/18 09:00 Room Air 04/24/18 07:56 97.3 91 18 162/95 (117) 100 04/24/18 07:47 88 04/24/18 07:45 73 17 Room Air 21 04/24/18 05:21 79 153/70 04/24/18 04:00 97.9 79 18 153/70 (97) 99 04/24/18 03:35 91 04/24/18 00:00 97.0 87 20 138/66 (90) 98 04/23/18 23:43 84 149/87 04/23/18 23:23 84 04/23/18 21:22 79 18 Room Air 04/23/18 21:00 Room Air 04/23/18 20:13 93 04/23/18 20:00 97.2 96 22 149/82 (104) 100 04/23/18 18:09 95 146/82 04/23/18 18:08 95 146/82 (103) 04/23/18 16:00 97.6 106 20 145/83 (103) 98 04/23/18 15:33 85 Intake and Output 04/23/18 04/24/18 19:00 07:00 Intake Total 810 ml 1150 ml Output Total 550 ml 450 ml Balance 260 ml 700 ml Intake Oral 50 ml IV Total 810 ml 1100 ml Output Urine Total 550 ml 450 ml # Voids 1 2 General Appearance: WD/WN HEENT: normocephalic, atraumatic Respiratory/Chest: chest wall non-tender, lungs clear Breasts: no masses Cardiovascular: normal peripheral pulses Genitourinary: normal external genitalia Extremities: no clubbing Skin: no rash Microbiology Date/Time Source Procedure Growth Status 04/21/18 16:30 Blood Blood Culture - Preliminary NO GROWTH AFTER 48 HOURS Resulted 04/21/18 16:20 Blood Blood Culture - Preliminary NO GROWTH AFTER 48 HOURS Resulted Laboratory Tests 04/24/18 04:00: White Blood Count 9.5, Red Blood Count 2.92L, Hemoglobin 8.9L, Hematocrit 26.7L , Mean Corpuscular Volume 92, Mean Corpuscular Hemoglobin 30.4, Mean Corpuscular Hemoglobin Concent 33.2, Red Cell Distribution Width 13.9, Platelet Count 176, Mean Platelet Volume 7.1, Neutrophils (%) (Auto) , Lymphocytes (%) ( Auto) , Monocytes (%) (Auto) , Eosinophils (%) (Auto) , Basophils (%) (Auto) , Differential Total Cells Counted 100, Neutrophils % (Manual) 83H, Lymphocytes % (Manual) 7L, Monocytes % (Manual) 5, Eosinophils % (Manual) 0, Basophils % ( Manual) 0, Band Neutrophils 5, Platelet Estimate Adequate, Platelet Morphology Normal, Sodium Level 139, Potassium Level 4.5, Chloride Level 109H, Carbon Dioxide Level 19L, Anion Gap 11, Blood Urea Nitrogen 17, Creatinine 1.0, Estimat Glomerular Filtration Rate , Glucose Level 178H, Calcium Level 8.6 Current Medications Medications (Trade) Dose Ordered Sig/Ibrahima Route PRN Reason Start Time Stop Time Status Last Admin Dose Admin Acetaminophen (Tylenol) 650 mg Q4H PRN ORAL fever (temp>100.5 F) 04/20/18 19:00 05/20/18 18:59 Acyclovir 400 mg/ Dextrose 110 ml @ 110 mls/hr Q12H IV 04/21/18 20:00 05/21/18 19:59 04/24/18 08:13 Albuterol/ Ipratropium (Albuterol/ Ipratropium) 3 ml Q4H PRN HHN Shortness of Breath 04/23/18 11:00 04/28/18 10:59 Amlodipine Besylate (Norvasc) 2.5 mg Q12H PRN ORAL sbp greater than 145 04/22/18 14:45 05/22/18 14:44 Barium Sulfate (Readi-Cat 2) 450 ml NOW PRN ORAL Radiology Procedure 04/24/18 11:15 04/26/18 11:03 Ciprofloxacin (Ciloxan Opth Soln) 2 drop BID RIGHT EAR 04/21/18 18:00 04/28/18 17:59 04/24/18 08:13 Dexamethasone Sodium Phosphate (Decadron 4mg/ml vial) 4 mg Q12HR IVP 04/21/18 21:00 05/21/18 20:59 04/24/18 08:13 Dextrose (Dextrose 50%) 25 ml Q30M PRN IV Hypoglycemia 04/20/18 19:15 05/20/18 19:00 Dextrose (Dextrose 50%) 50 ml Q30M PRN IV hypoglycemia 04/20/18 19:15 05/20/18 19:14 Dextrose/ Electrolytes 1,000 ml @ 75 mls/hr [id number] IV 04/23/18 15:08 05/23/18 15:07 04/23/18 23:55 Hydralazine HCl (Apresoline) 25 mg Q8H PRN ORAL For High Blood Pressure 04/20/18 19:00 05/20/18 18:59 Insulin Aspart (NovoLOG) BEFORE MEALS AND HS SUBQ 04/21/18 06:30 05/21/18 06:29 04/24/18 06:21 Iopamidol (Isovue-300 100ml) 100 ml NOW PRN INJ Radiology Procedure 04/24/18 11:15 04/26/18 11:03 Iopamidol (Isovue-300 100ml) 100 ml NOW PRN INJ Radiology Procedure 04/24/18 11:15 04/26/18 23:59 Iopamidol (Isovue-300 100ml) 100 ml NOW PRN INJ Radiology Procedure 04/24/18 11:15 04/26/18 23:59 Levofloxacin 150 ml @ 100 mls/hr EVERY OTHER DAY IVPB 04/24/18 14:00 05/01/18 13:59 04/24/18 13:26 Metoprolol Tartrate 5 mg/ Dextrose 60 ml @ 130 mls/hr Q6HR IVPB 04/23/18 18:00 05/23/18 17:59 04/24/18 11:42 Morphine Sulfate (Morphine Sulfate) 2 mg Q4H PRN IVP Moderate Pain (Pain Scale 4-6) 04/20/18 19:00 04/27/18 18:59 04/24/18 01:28 Nitroglycerin (Ntg) 0.4 mg Q5M PRN SL Prn Chest Pain 04/20/18 19:00 05/20/18 18:59 Ondansetron HCl (Zofran) 4 mg Q6H PRN IVP Nausea & Vomiting 04/20/18 19:00 05/20/18 18:59 Polyethylene Glycol (Miralax) 17 gm DAILYPRN PRN ORAL Constipation 04/20/18 19:00 05/20/18 18:59 Risperidone (RisperDAL) 1 mg BEDTIME PRN ORAL agitation 04/21/18 13:45 05/21/18 13:44 Temazepam (Restoril) 15 mg HSPRN PRN ORAL Insomnia 04/20/18 19:00 04/27/18 18:59 Ge Negron MD Apr 24, 2018 13:32
[2018-04-24] MEDS ORDERED: Metoprolol 25mg tab ORAL SCH (18:00)
--- NOTE | 2018-04-24 19:11 | Internal Med Progress Note ---
Subjective Date of Service: Apr 24, 2018 Physician Name Raad Her Attending Physician Jaxon Chow MD Current Medications Medications (Trade) Dose Ordered Sig/Ibrahima Route PRN Reason Start Time Stop Time Status Last Admin Dose Admin Acetaminophen (Tylenol) 650 mg Q4H PRN ORAL fever (temp>100.5 F) 04/20/18 19:00 05/20/18 18:59 Acyclovir 400 mg/ Dextrose 110 ml @ 110 mls/hr Q12H IV 04/21/18 20:00 05/21/18 19:59 04/24/18 08:13 Albuterol/ Ipratropium (Albuterol/ Ipratropium) 3 ml Q4H PRN HHN Shortness of Breath 04/23/18 11:00 04/28/18 10:59 Amlodipine Besylate (Norvasc) 2.5 mg Q12H PRN ORAL sbp greater than 145 04/22/18 14:45 05/22/18 14:44 Barium Sulfate (Readi-Cat 2) 450 ml NOW PRN ORAL Radiology Procedure 04/24/18 11:15 04/26/18 11:03 Ciprofloxacin (Ciloxan Opth Soln) 2 drop BID RIGHT EAR 04/21/18 18:00 04/28/18 17:59 04/24/18 18:28 Dexamethasone Sodium Phosphate (Decadron 4mg/ml vial) 4 mg Q12HR IVP 04/21/18 21:00 05/21/18 20:59 04/24/18 08:13 Dextrose (Dextrose 50%) 25 ml Q30M PRN IV Hypoglycemia 04/20/18 19:15 05/20/18 19:00 Dextrose (Dextrose 50%) 50 ml Q30M PRN IV hypoglycemia 04/20/18 19:15 05/20/18 19:14 Dextrose/ Electrolytes 1,000 ml @ 75 mls/hr [id number] IV 04/23/18 15:08 05/23/18 15:07 04/24/18 14:17 Hydralazine HCl (Apresoline) 25 mg Q8H PRN ORAL For High Blood Pressure 04/20/18 19:00 05/20/18 18:59 04/24/18 16:50 Insulin Aspart (NovoLOG) BEFORE MEALS AND HS SUBQ 04/21/18 06:30 05/21/18 06:29 04/24/18 16:59 Iopamidol (Isovue-300 100ml) 100 ml NOW PRN INJ Radiology Procedure 04/24/18 11:15 04/26/18 11:03 Iopamidol (Isovue-300 100ml) 100 ml NOW PRN INJ Radiology Procedure 04/24/18 11:15 04/26/18 23:59 Iopamidol (Isovue-300 100ml) 100 ml NOW PRN INJ Radiology Procedure 04/24/18 11:15 04/26/18 23:59 Iopamidol (Isovue-300 100ml) 100 ml NOW PRN INJ Radiology Procedure 04/24/18 14:30 04/26/18 14:19 Levofloxacin 150 ml @ 100 mls/hr EVERY OTHER DAY IVPB 04/24/18 14:00 05/01/18 13:59 04/24/18 13:26 Metoprolol Tartrate (Lopressor) 25 mg Q12HR ORAL 04/25/18 09:00 05/25/18 08:59 Morphine Sulfate (Morphine Sulfate) 2 mg Q4H PRN IVP Moderate Pain (Pain Scale 4-6) 04/20/18 19:00 04/27/18 18:59 04/24/18 01:28 Nitroglycerin (Ntg) 0.4 mg Q5M PRN SL Prn Chest Pain 04/20/18 19:00 05/20/18 18:59 Ondansetron HCl (Zofran) 4 mg Q6H PRN IVP Nausea & Vomiting 04/20/18 19:00 05/20/18 18:59 Polyethylene Glycol (Miralax) 17 gm DAILYPRN PRN ORAL Constipation 04/20/18 19:00 05/20/18 18:59 Risperidone (RisperDAL) 1 mg BEDTIME PRN ORAL agitation 04/21/18 13:45 05/21/18 13:44 Temazepam (Restoril) 15 mg HSPRN PRN ORAL Insomnia 04/20/18 19:00 04/27/18 18:59 Allergies: Coded Allergies: No Known Allergies (Unverified , 04/20/18) ROS Limited/Unobtainable: Yes Subjective 83 YO F with Non Hodgkins Lymphoma admitted with fever and dehydration. Now sepsis. Cover for Int Med-Dr Geraldo Objective Last Vital Signs Date Time Temp Pulse Resp B/P (MAP) Pulse Ox O2 Delivery O2 Flow Rate FiO2 04/24/18 18:28 103 164/92 04/24/18 15:56 97.3 21 99 04/24/18 09:00 Room Air 04/24/18 07:45 21 04/20/18 22:47 2.0 Laboratory Tests Test 04/24/18 04:00 White Blood Count 9.5 K/UL (4.8-10.8) Red Blood Count 2.92 M/UL (4.20-5.40) L Hemoglobin 8.9 G/DL (12.0-16.0) L Hematocrit 26.7 % (37.0-47.0) L Mean Corpuscular Volume 92 FL (80-99) Mean Corpuscular Hemoglobin 30.4 PG (27.0-31.0) Mean Corpuscular Hemoglobin Concent 33.2 G/DL (32.0-36.0) Red Cell Distribution Width 13.9 % (11.6-14.8) Platelet Count 176 K/UL (150-450) Mean Platelet Volume 7.1 FL (6.5-10.1) Neutrophils (%) (Auto) % (45.0-75.0) Lymphocytes (%) (Auto) % (20.0-45.0) Monocytes (%) (Auto) % (1.0-10.0) Eosinophils (%) (Auto) % (0.0-3.0) Basophils (%) (Auto) % (0.0-2.0) Differential Total Cells Counted 100 Neutrophils % (Manual) 83 % (45-75) H Lymphocytes % (Manual) 7 % (20-45) L Monocytes % (Manual) 5 % (1-10) Eosinophils % (Manual) 0 % (0-3) Basophils % (Manual) 0 % (0-2) Band Neutrophils 5 % (0-8) Platelet Estimate Adequate Platelet Morphology Normal Sodium Level 139 MMOL/L (136-145) Potassium Level 4.5 MMOL/L (3.5-5.1) Chloride Level 109 MMOL/L (98-107) H Carbon Dioxide Level 19 MMOL/L (21-32) L Anion Gap 11 mmol/L (5-15) Blood Urea Nitrogen 17 mg/dL (7-18) Creatinine 1.0 MG/DL (0.55-1.30) Estimat Glomerular Filtration Rate mL/min (>60) Glucose Level 178 MG/DL (74-106) H Calcium Level 8.6 MG/DL (8.5-10.1) Intake and Output 04/23/18 04/24/18 18:59 06:59 Intake Total 735 ml 1225 ml Output Total 550 ml 450 ml Balance 185 ml 775 ml Intake Oral 50 ml IV Total 735 ml 1175 ml Output Urine Total 550 ml 450 ml # Voids 1 2 Objective Objective GENERAL: awake, responsive, Cachectic. HEAD AND NECK: PERRLA, EOMI, Right side of face Hilario palsy. NECK: Supple. No JVD. LUNGS: decrease air entry at bases. Fair inspiratory effort. No wheeze or rhonchi. HEART: S1 and S2 RR, No Murmur. ABDOMEN: Soft, nondistended, and nontender. Positive bowel sounds. EXTREMITIES: No cyanosis, clubbing, or edema. Right upper extremity PAS port, NEUROLOGIC: Cranial nerves II through XII grossly intact. Moving all extremities slowly. Assessment/Plan Assessment/Plan Assessment/Plan Assessment/Plan ASSESSMENT: 1. PSEUDOMONAS AERUGINOSA bacteremia / Sepsis. 2. Dehydration. 3. Tachycardia. 4. Non-Hodgkin lymphoma. 5. Diabetes type 2. 6. Hypertension. 7. Anemia. 8. History of right-sided Hilario palsy. PLAN: In telemetry. F/U with laboratory and culture. Antibiotic: Meropenem, Discussion with the daughter extensively at bedside. Code status, Full Code. DVT prophylaxis. Heparin, subcu. Follow up with Dr. Negron, Pulmonary, Critical Care, Dr. Coley , cardiology , and Dr. Ratliff Infectious Disease IVF Monitor BS On Metoprol to IV Raad Her MD Apr 24, 2018 19:11
--- NOTE | 2018-04-24 19:21 | Cardiology Progress Note ---
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 2017) carotid stenosis s/p stent on the right keep on iv abx per ID surveillance cx neg so far id following metoporlol to po bp has been ok will derease ivf id input reg source of bacteremia swith to po metoprolol will increase gibbs add norvasc as well await id myers will consider JOSSELINE as well in near futuer Subjective Cardiovascular: Denies: chest pain Respiratory: Reports: shortness of breath - with eating Gastrointestinal/Abdominal: Denies: abdominal pain Genitourinary: Denies: burning Objective Last 24 Hour Vital Signs Date Time Temp Pulse Resp B/P (MAP) Pulse Ox O2 Delivery O2 Flow Rate FiO2 04/24/18 18:28 103 164/92 04/24/18 18:07 103 164/92 (116) 04/24/18 16:50 164/93 04/24/18 15:56 97.3 88 21 160/89 (112) 99 04/24/18 15:14 92 04/24/18 11:53 98 04/24/18 11:42 95 145/85 04/24/18 11:38 97.3 95 20 145/85 (105) 100 04/24/18 09:08 139/73 (95) 04/24/18 09:00 Room Air 04/24/18 07:56 97.3 91 18 162/95 (117) 100 04/24/18 07:47 88 04/24/18 07:45 73 17 Room Air 21 04/24/18 05:21 79 153/70 04/24/18 04:00 97.9 79 18 153/70 (97) 99 04/24/18 03:35 91 04/24/18 00:00 97.0 87 20 138/66 (90) 98 04/23/18 23:43 84 149/87 04/23/18 23:23 84 04/23/18 21:22 79 18 Room Air 04/23/18 21:00 Room Air 04/23/18 20:13 93 04/23/18 20:00 97.2 96 22 149/82 (104) 100 General Appearance: no apparent distress Cardiovascular: normal rate Respiratory/Chest: lungs clear Abdomen: normal bowel sounds, non tender, soft Extremities: no swelling Intake and Output 04/23/18 04/24/18 18:59 06:59 Intake Total 735 ml 1225 ml Output Total 550 ml 450 ml Balance 185 ml 775 ml Intake Oral 50 ml IV Total 735 ml 1175 ml Output Urine Total 550 ml 450 ml # Voids 1 2 Laboratory Tests Test 04/24/18 04:00 White Blood Count 9.5 K/UL (4.8-10.8) Red Blood Count 2.92 M/UL (4.20-5.40) L Hemoglobin 8.9 G/DL (12.0-16.0) L Hematocrit 26.7 % (37.0-47.0) L Mean Corpuscular Volume 92 FL (80-99) Mean Corpuscular Hemoglobin 30.4 PG (27.0-31.0) Mean Corpuscular Hemoglobin Concent 33.2 G/DL (32.0-36.0) Red Cell Distribution Width 13.9 % (11.6-14.8) Platelet Count 176 K/UL (150-450) Mean Platelet Volume 7.1 FL (6.5-10.1) Neutrophils (%) (Auto) % (45.0-75.0) Lymphocytes (%) (Auto) % (20.0-45.0) Monocytes (%) (Auto) % (1.0-10.0) Eosinophils (%) (Auto) % (0.0-3.0) Basophils (%) (Auto) % (0.0-2.0) Differential Total Cells Counted 100 Neutrophils % (Manual) 83 % (45-75) H Lymphocytes % (Manual) 7 % (20-45) L Monocytes % (Manual) 5 % (1-10) Eosinophils % (Manual) 0 % (0-3) Basophils % (Manual) 0 % (0-2) Band Neutrophils 5 % (0-8) Platelet Estimate Adequate Platelet Morphology Normal Sodium Level 139 MMOL/L (136-145) Potassium Level 4.5 MMOL/L (3.5-5.1) Chloride Level 109 MMOL/L (98-107) H Carbon Dioxide Level 19 MMOL/L (21-32) L Anion Gap 11 mmol/L (5-15) Blood Urea Nitrogen 17 mg/dL (7-18) Creatinine 1.0 MG/DL (0.55-1.30) Estimat Glomerular Filtration Rate mL/min (>60) Glucose Level 178 MG/DL (74-106) H Calcium Level 8.6 MG/DL (8.5-10.1) Hong Coley MD Apr 24, 2018 19:21
[2018-04-24] MEDS: Metoprolol 25mg tab ORAL SCH (21:33)
[2018-04-25] VITALS (8 sets, daily range): BP systolic 141–172; BP diastolic 74–88
[2018-04-25] MEDS: Metoprolol 25mg tab ORAL SCH (05:37)
[2018-04-25] MEDS: NovoLOG Insulin Flexpen SUBQ SCH ×4 (05:37→21:00)
[2018-04-25 06:04] LABS: HEMATOCRIT 27.4 % (37.0-47.0); HEMOGLOBIN 9.1 G/DL (12.0-16.0); MEAN CORPUSCULAR VOLUME 91 FL (80-99); PLATELET COUNT 198 K/UL (150-450); RED BLOOD COUNT 3.02 M/UL (4.20-5.40); RED CELL DISTRIBUTION WIDTH 13.7 % (11.6-14.8); WHITE BLOOD COUNT 8.4 K/UL (4.8-10.8)
[2018-04-25 06:25] LABS: ALANINE AMINOTRANSFERASE 72 U/L (12-78); ALBUMIN 2.1 G/DL (3.4-5.0); ALBUMIN/GLOBULIN RATIO 0.5 (1.0-2.7); ALKALINE PHOSPHATASE 242 U/L (46-116); ANION GAP 8 mmol/L (5-15); ASPARTATE AMINO TRANSFERASE 51 U/L (15-37); BILIRUBIN,TOTAL 0.4 MG/DL (0.2-1.0); BLOOD UREA NITROGEN 20 mg/dL (7-18); CALCIUM 8.7 MG/DL (8.5-10.1); CARBON DIOXIDE 22 MMOL/L (21-32); CHLORIDE 107 MMOL/L (98-107); CREATININE 0.9 MG/DL (0.55-1.30); POTASSIUM 4.7 MMOL/L (3.5-5.1); SODIUM 137 MMOL/L (136-145)
[2018-04-25 06:29] LABS: PHOSPHORUS 2.5 MG/DL (2.5-4.9)
[2018-04-25] MEDS ORDERED: NovoLOG Insulin Flexpen SUBQ SCH (06:30)
[2018-04-25] MEDS ORDERED: Nitroglycerin Subl 0.4mg tab SL PRN (06:35)
[2018-04-25] MEDS ORDERED: Albuterol/Ipratropium 3ml neb HHN PRN (07:00)
[2018-04-25] MEDS ORDERED: Morphine Sulfate 2mg/ml Inj IVP PRN (07:00)
[2018-04-25] MEDS: D5W IV SCH ×2 (08:00→20:15)
[2018-04-25] MEDS: ACYCLOVIR IV SCH ×2 (08:00→20:15)
[2018-04-25] MEDS: Dexamethasone 4mg/ml vial IVP SCH ×2 (08:36→20:15)
[2018-04-25] MEDS ORDERED: Metoprolol 25mg tab ORAL SCH ×3 (09:00→14:00)
[2018-04-25] MEDS: HydrALAZINE 25mg tab ORAL PRN ×2 (11:03→20:16)
--- NOTE | 2018-04-25 11:12 | Infectious Diseases Prog Note ---
Assessment/Plan Assessment/Plan Assessment/Plan Severe sepsis, improving- 2ry to PsA bacteremia (?source: from urine vs intraabdominal vs port infection vs ear infection), ? endocarditis; immunocompromised host -04/20 Bcx 2/4 PsA (bose S); 04/21 NTD u/a wbc 5-10, nit neg, leuk +1; ucx Neg influenza sc neg -2d echo: Heavily thickened mitral valve leaflets with reduced excursion. Echogenic material noted on posterior mitral valve leaflet. Heavy mitral annulus and aortic root calcification. Bioprosthetic aortic valve replacement noted -CXR: Left basilar atelectasis. No acute process otherwise. 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 Will continue to follow along with you. Discussed with RN Subjective Allergies: Coded Allergies: No Known Allergies (Unverified , 04/20/18) Subjective afebrile no leukocytosis repeat bcx NTD Objective Vital Signs Last 24 Hour Vital Signs Date Time Temp Pulse Resp B/P (MAP) Pulse Ox O2 Delivery O2 Flow Rate FiO2 04/25/18 10:57 92 163/88 (113) 04/25/18 08:36 87 170/86 04/25/18 08:00 97.9 87 18 170/86 (114) 99 04/25/18 05:37 88 150/78 04/25/18 04:00 98.4 88 20 150/78 (102) 99 04/25/18 03:21 77 04/25/18 00:00 98.7 87 19 141/86 (104) 99 04/24/18 23:19 87 04/24/18 21:33 92 128/71 04/24/18 21:00 Room Air 04/24/18 20:05 79 161/58 04/24/18 20:00 98.8 92 19 161/82 (108) 98 04/24/18 19:30 78 18 Room Air 21 04/24/18 19:02 97 04/24/18 18:28 103 164/92 04/24/18 18:07 103 164/92 (116) 04/24/18 16:50 164/93 04/24/18 15:56 97.3 88 21 160/89 (112) 99 04/24/18 15:14 92 04/24/18 11:53 98 04/24/18 11:42 95 145/85 04/24/18 11:38 97.3 95 20 145/85 (105) 100 Height (Feet): 4 Height (Inches): 11.00 Weight (Pounds): 130 Objective GENERAL: The patient is cachectic. The patient has chronic illness. HEAD AND NECK: Pupils are reactive to light. Right side of face, she has Hilario palsy. R ear with minimal yellowish drainage NECK: Supple. No JVD. LUNGS: Good air entry. Poor inspiratory effort. No wheeze or rhonchi. HEART: S1 and S2. Tachycardic. ABDOMEN: Soft, nondistended, and nontender. Positive bowel sounds. EXTREMITIES: No cyanosis, clubbing, or edema. Right upper extremity PAS port was noted. Laboratory Tests Test 04/25/18 04:00 White Blood Count 8.4 K/UL (4.8-10.8) Red Blood Count 3.02 M/UL (4.20-5.40) L Hemoglobin 9.1 G/DL (12.0-16.0) L Hematocrit 27.4 % (37.0-47.0) L Mean Corpuscular Volume 91 FL (80-99) Mean Corpuscular Hemoglobin 30.2 PG (27.0-31.0) Mean Corpuscular Hemoglobin Concent 33.2 G/DL (32.0-36.0) Red Cell Distribution Width 13.7 % (11.6-14.8) Platelet Count 198 K/UL (150-450) Mean Platelet Volume 7.2 FL (6.5-10.1) Neutrophils (%) (Auto) % (45.0-75.0) Lymphocytes (%) (Auto) % (20.0-45.0) Monocytes (%) (Auto) % (1.0-10.0) Eosinophils (%) (Auto) % (0.0-3.0) Basophils (%) (Auto) % (0.0-2.0) Erythrocyte Sedimentation Rate 118 MM/HR (0-30) H Sodium Level 137 MMOL/L (136-145) Potassium Level 4.7 MMOL/L (3.5-5.1) Chloride Level 107 MMOL/L (98-107) Carbon Dioxide Level 22 MMOL/L (21-32) Anion Gap 8 mmol/L (5-15) Blood Urea Nitrogen 20 mg/dL (7-18) H Creatinine 0.9 MG/DL (0.55-1.30) Estimat Glomerular Filtration Rate mL/min (>60) Glucose Level 200 MG/DL (74-106) H Calcium Level 8.7 MG/DL (8.5-10.1) Phosphorus Level 2.5 MG/DL (2.5-4.9) Magnesium Level 1.4 MG/DL (1.8-2.4) L Total Bilirubin 0.4 MG/DL (0.2-1.0) Aspartate Amino Transf (AST/SGOT) 51 U/L (15-37) H Alanine Aminotransferase (ALT/SGPT) 72 U/L (12-78) Alkaline Phosphatase 242 U/L (46-116) H C-Reactive Protein, Quantitative 3.5 mg/dL (0.00-0.90) H Total Protein 6.3 G/DL (6.4-8.2) L Albumin 2.1 G/DL (3.4-5.0) L Globulin 4.2 g/dL Albumin/Globulin Ratio 0.5 (1.0-2.7) L Current Medications Medications (Trade) Dose Ordered Sig/Ibrahima Route PRN Reason Start Time Stop Time Status Last Admin Dose Admin Acetaminophen (Tylenol) 650 mg Q4H PRN ORAL fever (temp>100.5 F) 04/25/18 07:00 05/20/18 18:59 Acyclovir 400 mg/ Dextrose 110 ml @ 110 mls/hr Q12H IV 04/25/18 08:00 05/21/18 19:59 04/25/18 08:00 Albuterol/ Ipratropium (Albuterol/ Ipratropium) 3 ml Q4H PRN HHN Shortness of Breath 04/25/18 07:00 04/28/18 10:59 Amlodipine Besylate (Norvasc) 2.5 mg DAILY ORAL 04/25/18 09:00 05/25/18 08:59 04/25/18 08:36 Amlodipine Besylate (Norvasc) 2.5 mg Q12H PRN ORAL sbp greater than 145 04/25/18 14:45 05/22/18 14:44 Ciprofloxacin (Ciloxan Opth Soln) 2 drop BID RIGHT EAR 04/25/18 09:00 04/28/18 17:59 Dexamethasone Sodium Phosphate (Decadron 4mg/ml vial) 4 mg Q12HR IVP 04/25/18 09:00 05/21/18 20:59 04/25/18 08:36 Dextrose (Dextrose 50%) 25 ml Q30M PRN IV Hypoglycemia 04/25/18 06:45 05/20/18 19:00 Dextrose (Dextrose 50%) 50 ml Q30M PRN IV hypoglycemia 04/25/18 06:45 05/20/18 19:14 Dextrose/ Electrolytes 1,000 ml @ 75 mls/hr [id number] IV 04/25/18 06:30 05/23/18 15:07 04/25/18 06:56 Hydralazine HCl (Apresoline) 25 mg Q8H PRN ORAL For High Blood Pressure 04/25/18 11:00 05/20/18 18:59 Insulin Aspart (NovoLOG) BEFORE MEALS AND HS SUBQ 04/25/18 11:30 05/25/18 11:29 Levofloxacin 150 ml @ 100 mls/hr EVERY OTHER DAY IVPB 04/26/18 09:00 05/01/18 13:59 Metoprolol Tartrate (Lopressor) 25 mg Q8HR ORAL 04/25/18 14:00 05/24/18 21:59 Morphine Sulfate (Morphine Sulfate) 2 mg Q4H PRN IVP Moderate Pain (Pain Scale 4-6) 04/25/18 07:00 04/27/18 18:59 Nitroglycerin (Ntg) 0.4 mg Q5M PRN SL Prn Chest Pain 04/25/18 06:35 05/20/18 18:59 Ondansetron HCl (Zofran) 4 mg Q6H PRN IVP Nausea & Vomiting 04/25/18 07:00 05/20/18 18:59 Polyethylene Glycol (Miralax) 17 gm DAILYPRN PRN ORAL Constipation 04/25/18 19:00 05/20/18 18:59 Risperidone (RisperDAL) 1 mg BEDTIME PRN ORAL agitation 04/25/18 21:00 05/21/18 13:44 Temazepam (Restoril) 15 mg HSPRN PRN ORAL Insomnia 04/25/18 19:00 04/27/18 18:59 Lakesha Ratliff M.D. Apr 25, 2018 11:12
[2018-04-25] MEDS ORDERED: Isovue-300 100ml vial INJ PRN ×4 (11:15→14:30)
--- NOTE | 2018-04-25 11:52 | Diagnostic Imaging Report ---
Indication: Reason For Exam: INFECT Technique: Spiral acquisitions obtained through the brain pre- and post-IV contrast administration. Angled axial and coronal 5 x 5 mm slices reconstructed. Total dose length product 4023.37 mGycm. CTDIvol(s) 70.38,70.38,18.16 mGy. Dose reduction achieved using automated exposure control Comparison: none Findings: Precontrast images demonstrate no evidence of acute intercranial hemorrhage nor edema. There is age-related enlargement of the ventricles and extra axial CSF spaces, the former somewhat out of proportion to the latter. There is periventricular deep white matter low-attenuation, consistent with chronic ischemic change. Multiple old deep white matter lacunar infarcts are seen in the right frontal and parietal deep white matter. Postcontrast images demonstrate no evidence of abnormal contrast enhancement. Visualized orbits are unremarkable. There is minimal posterior ethmoid disease on the right. There is diffuse mastoid opacification, including middle ear cavities. Impression: Age-related volume loss. Note that ventriculomegaly is somewhat out of proportion to the degree of sulcal dilatation. This is probably due to predominant central component of cerebral volume loss, but component of normal pressure hydrocephalus not completely excludable. 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
--- NOTE | 2018-04-25 12:09 | Diagnostic Imaging Report ---
Indication: Reason For Exam: INFECT Technique: IV administration nonionic contrast Spiral acquisitions obtained through the temporal bones Multiplanar high resolution thin slice reconstructions were generated. Total dose length product 4023 mGycm. CTDIvol(s) 70, 70, 18 mGy. Radiation dose was minimized using automated exposure control Comparison: none Findings: On the right, there is complete opacification of the mastoid air cells. There is opacification of the middle ear cavity, extending around the ossicles, and to a slight extent along the anterior aspect of the tympanic membrane. Although the rest middle ear cavity is opacified, that portion medial to the tympanic membrane remains mostly aerated. The tympanic membrane is mildly thickened. There is no evidence of erosion of the scutum or the ossicles, and the ossicles are nondisplaced. The inner ear structures all appear unremarkable. The internal auditory canal and course of the facial nerve are unremarkable. The external auditory canal is unremarkable. On the left, there is complete opacification of the mastoid air cells. There is complete opacification of the mastoid antrum and middle ear cavity. The external auditory canal is patent, unopacified. There is no evidence of ossicular erosion or erosion of the scutum. The inner ear structures and internal auditory canal are unremarkable. No unusual contrast enhancement demonstrated. Impression: Complete opacification of the left mastoid air cells and middle ear cavity, consistent with chronic mastoiditis and chronic otitis media. No evidence of ossicular erosion to suggest cholesteatoma. Complete opacification of the right mastoid air cells, near complete opacification of the middle ear cavity as described. This consistent with chronic mastoiditis and chronic otitis media. No evidence of ossicular erosion to suggest cholesteatoma No contrast enhancing lesion demonstrated The CT scanner at [facility] [place] is accredited by the [employer] and the scans are performed using protocols designed to limit radiation exposure to as low as reasonably achievable to attain images of sufficient resolution adequate for diagnostic evaluation.
--- NOTE | 2018-04-25 12:14 | Diagnostic Imaging Report ---
Indication: Pain, infection, bacteremia Technique: IV administration nonionic contrast Spiral acquisitions obtained through the facial bones Multiplanar reconstructions were generated. Total dose length product 4023 mGycm. CTDIvol(s) 70, 70, 18 mGy. Radiation dose was minimized using automated exposure control Comparison: none Findings: There is mild prominence of the adenoids. The nasopharynx is otherwise unremarkable. The oropharynx, and hypopharynx are unremarkable. No evidence of tonsillar or facial abscess demonstrated. The sinuses are clear except for minimal posterior ethmoid disease. There is bilateral mastoid and middle ear opacification. The maxillary dentition demonstrates multiple extractions, but no evidence of apical root abscess. The mandible is edentulous. The bones are otherwise unremarkable. There is minimal leftward nasal septal deviation. The maxillary ostia are patent. There are degenerative changes of the upper cervical spine. No unusual contrast enhancement is demonstrated. Impression: Mild nonspecific adenoidal prominence No evidence of facial or tonsillar abscess Incidental findings as noted The CT scanner at [facility] is accredited by the [employer] and the scans are performed using protocols designed to limit radiation exposure to as low as reasonably achievable to attain images of sufficient resolution adequate for diagnostic evaluation.
--- NOTE | 2018-04-25 12:56 | Pulmonology Progress Note ---
Assessment/Plan Problems: (1) Septic shock (2) Non-Hodgkin lymphoma (3) History of hypertension (4) CAD (coronary artery disease) (5) Diabetes mellitus Assessment/Plan increase amlodipoin Ojeda sensitive pseudomonas continue abx Ojeda CT scan ordered to look for the source of Abx sliding scale swallow evaluation med/surg d/w daughter at the bed site Subjective ROS Limited/Unobtainable: No Constitutional: Reports: no symptoms HEENT: Repors: no symptoms Respiratory: Reports: no symptoms Allergies: Coded Allergies: No Known Allergies (Unverified , 04/20/18) Objective Last 24 Hour Vital Signs Date Time Temp Pulse Resp B/P (MAP) Pulse Ox O2 Delivery O2 Flow Rate FiO2 04/25/18 12:00 98.1 98 19 165/88 (113) 100 04/25/18 11:03 163/88 04/25/18 10:57 92 163/88 (113) 04/25/18 09:00 Room Air 04/25/18 08:36 87 170/86 04/25/18 08:00 97.9 87 18 170/86 (114) 99 04/25/18 05:37 88 150/78 04/25/18 04:00 98.4 88 20 150/78 (102) 99 04/25/18 03:21 77 04/25/18 00:00 98.7 87 19 141/86 (104) 99 04/24/18 23:19 87 04/24/18 21:33 92 128/71 04/24/18 21:00 Room Air 04/24/18 20:05 79 161/58 04/24/18 20:00 98.8 92 19 161/82 (108) 98 04/24/18 19:30 78 18 Room Air 21 04/24/18 19:02 97 04/24/18 18:28 103 164/92 04/24/18 18:07 103 164/92 (116) 04/24/18 16:50 164/93 04/24/18 15:56 97.3 88 21 160/89 (112) 99 04/24/18 15:14 92 Intake and Output 04/24/18 04/25/18 19:00 07:00 Intake Total 600 ml Output Total 450 ml 2300 ml Balance 150 ml -2300 ml IV Total 600 ml Output Urine Total 450 ml 2300 ml General Appearance: cachetic HEENT: normocephalic, atraumatic Cardiovascular: normal peripheral pulses, normal rate Abdomen: normal bowel sounds, soft, non tender Genitourinary: normal external genitalia Extremities: no clubbing Laboratory Tests 04/25/18 04:00: White Blood Count 8.4, Red Blood Count 3.02L, Hemoglobin 9.1L, Hematocrit 27.4L , Mean Corpuscular Volume 91, Mean Corpuscular Hemoglobin 30.2, Mean Corpuscular Hemoglobin Concent 33.2, Red Cell Distribution Width 13.7, Platelet Count 198, Mean Platelet Volume 7.2, Neutrophils (%) (Auto) , Lymphocytes (%) ( Auto) , Monocytes (%) (Auto) , Eosinophils (%) (Auto) , Basophils (%) (Auto) , Erythrocyte Sedimentation Rate 118H, Sodium Level 137, Potassium Level 4.7, Chloride Level 107, Carbon Dioxide Level 22, Anion Gap 8, Blood Urea Nitrogen 20H, Creatinine 0.9, Estimat Glomerular Filtration Rate , Glucose Level 200H, Calcium Level 8.7, Phosphorus Level 2.5, Magnesium Level 1.4L, Total Bilirubin 0.4, Aspartate Amino Transf (AST/SGOT) 51H, Alanine Aminotransferase (ALT/SGPT) 72, Alkaline Phosphatase 242H, C-Reactive Protein, Quantitative 3.5H, Total Protein 6.3L, Albumin 2.1L, Globulin 4.2, Albumin/Globulin Ratio 0.5L Current Medications Medications (Trade) Dose Ordered Sig/Ibrahima Route PRN Reason Start Time Stop Time Status Last Admin Dose Admin Acetaminophen (Tylenol) 650 mg Q4H PRN ORAL fever (temp>100.5 F) 04/25/18 07:00 05/20/18 18:59 Acyclovir 400 mg/ Dextrose 110 ml @ 110 mls/hr Q12H IV 04/25/18 08:00 05/21/18 19:59 04/25/18 08:00 Albuterol/ Ipratropium (Albuterol/ Ipratropium) 3 ml Q4H PRN HHN Shortness of Breath 04/25/18 07:00 04/28/18 10:59 Amlodipine Besylate (Norvasc) 2.5 mg DAILY ORAL 04/25/18 09:00 05/25/18 08:59 04/25/18 08:36 Amlodipine Besylate (Norvasc) 2.5 mg Q12H PRN ORAL sbp greater than 145 04/25/18 14:45 05/22/18 14:44 Ciprofloxacin (Ciloxan Opth Soln) 2 drop BID RIGHT EAR 04/25/18 09:00 04/28/18 17:59 Dexamethasone Sodium Phosphate (Decadron 4mg/ml vial) 4 mg Q12HR IVP 04/25/18 09:00 05/21/18 20:59 04/25/18 08:36 Dextrose (Dextrose 50%) 25 ml Q30M PRN IV Hypoglycemia 04/25/18 06:45 05/20/18 19:00 Dextrose (Dextrose 50%) 50 ml Q30M PRN IV hypoglycemia 04/25/18 06:45 05/20/18 19:14 Dextrose/ Electrolytes 1,000 ml @ 75 mls/hr [id number] IV 04/25/18 06:30 05/23/18 15:07 04/25/18 06:56 Hydralazine HCl (Apresoline) 25 mg Q8H PRN ORAL For High Blood Pressure 04/25/18 11:00 05/20/18 18:59 04/25/18 11:03 Insulin Aspart (NovoLOG) BEFORE MEALS AND HS SUBQ 04/25/18 11:30 05/25/18 11:29 04/25/18 11:55 Levofloxacin 150 ml @ 100 mls/hr EVERY OTHER DAY IVPB 04/26/18 09:00 05/01/18 13:59 Metoprolol Tartrate (Lopressor) 25 mg Q8HR ORAL 04/25/18 14:00 05/24/18 21:59 Morphine Sulfate (Morphine Sulfate) 2 mg Q4H PRN IVP Moderate Pain (Pain Scale 4-6) 04/25/18 07:00 04/27/18 18:59 Nitroglycerin (Ntg) 0.4 mg Q5M PRN SL Prn Chest Pain 04/25/18 06:35 05/20/18 18:59 Ondansetron HCl (Zofran) 4 mg Q6H PRN IVP Nausea & Vomiting 04/25/18 07:00 05/20/18 18:59 Polyethylene Glycol (Miralax) 17 gm DAILYPRN PRN ORAL Constipation 04/25/18 19:00 1/12/19 18:59 Risperidone (RisperDAL) 1 mg BEDTIME PRN ORAL agitation 04/25/18 21:00 05/21/18 13:44 Temazepam (Restoril) 15 mg HSPRN PRN ORAL Insomnia 04/25/18 19:00 04/27/18 18:59 Ge Negron MD Apr 25, 2018 12:56
[2018-04-25] MEDS ORDERED: Metoprolol 25mg tab ORAL PRN (13:00)
[2018-04-25] MEDS: Ciprofloxacin Opth Soln 2.5ml RIGHT EAR SCH ×2 (13:26→17:45)
--- NOTE | 2018-04-25 13:48 | Cardiology Progress Note ---
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 mv thickening and increased echoes on 2d echo itp hs dm htn lymphoma cad coronary artery ca score of 194 in 2017) carotid stenosis s/p stent on the right keep on iv abx per ID surveillance cx neg so far id following metoporlol to po bp has been ok will derease ivf id input reg source of bacteremia po metoprol and norvasc dose adjusted oper orders will consider JOSSELINE as well in near future d/w dtr Subjective Cardiovascular: Denies: chest pain, lightheadedness Genitourinary: Denies: burning Objective Last 24 Hour Vital Signs Date Time Temp Pulse Resp B/P (MAP) Pulse Ox O2 Delivery O2 Flow Rate FiO2 04/25/18 12:00 98.1 98 19 165/88 (113) 100 04/25/18 11:03 163/88 04/25/18 10:57 92 163/88 (113) 04/25/18 09:00 Room Air 04/25/18 08:36 87 170/86 04/25/18 08:00 97.9 87 18 170/86 (114) 99 04/25/18 05:37 88 150/78 04/25/18 04:00 98.4 88 20 150/78 (102) 99 04/25/18 03:21 77 04/25/18 00:00 98.7 87 19 141/86 (104) 99 04/24/18 23:19 87 04/24/18 21:33 92 128/71 04/24/18 21:00 Room Air 04/24/18 20:05 79 161/58 04/24/18 20:00 98.8 92 19 161/82 (108) 98 04/24/18 19:30 78 18 Room Air 21 04/24/18 19:02 97 04/24/18 18:28 103 164/92 04/24/18 18:07 103 164/92 (116) 04/24/18 16:50 164/93 04/24/18 15:56 97.3 88 21 160/89 (112) 99 04/24/18 15:14 92 General Appearance: no apparent distress, alert Neck: supple Cardiovascular: normal rate, regular rhythm Respiratory/Chest: lungs clear, normal breath sounds Abdomen: non tender, soft Extremities: no swelling Intake and Output 04/24/18 04/25/18 19:00 07:00 Intake Total 600 ml Output Total 450 ml 2300 ml Balance 150 ml -2300 ml IV Total 600 ml Output Urine Total 450 ml 2300 ml Laboratory Tests Test 04/25/18 04:00 White Blood Count 8.4 K/UL (4.8-10.8) Red Blood Count 3.02 M/UL (4.20-5.40) L Hemoglobin 9.1 G/DL (12.0-16.0) L Hematocrit 27.4 % (37.0-47.0) L Mean Corpuscular Volume 91 FL (80-99) Mean Corpuscular Hemoglobin 30.2 PG (27.0-31.0) Mean Corpuscular Hemoglobin Concent 33.2 G/DL (32.0-36.0) Red Cell Distribution Width 13.7 % (11.6-14.8) Platelet Count 198 K/UL (150-450) Mean Platelet Volume 7.2 FL (6.5-10.1) Neutrophils (%) (Auto) % (45.0-75.0) Lymphocytes (%) (Auto) % (20.0-45.0) Monocytes (%) (Auto) % (1.0-10.0) Eosinophils (%) (Auto) % (0.0-3.0) Basophils (%) (Auto) % (0.0-2.0) Erythrocyte Sedimentation Rate 118 MM/HR (0-30) H Sodium Level 137 MMOL/L (136-145) Potassium Level 4.7 MMOL/L (3.5-5.1) Chloride Level 107 MMOL/L (98-107) Carbon Dioxide Level 22 MMOL/L (21-32) Anion Gap 8 mmol/L (5-15) Blood Urea Nitrogen 20 mg/dL (7-18) H Creatinine 0.9 MG/DL (0.55-1.30) Estimat Glomerular Filtration Rate mL/min (>60) Glucose Level 200 MG/DL (74-106) H Calcium Level 8.7 MG/DL (8.5-10.1) Phosphorus Level 2.5 MG/DL (2.5-4.9) Magnesium Level 1.4 MG/DL (1.8-2.4) L Total Bilirubin 0.4 MG/DL (0.2-1.0) Aspartate Amino Transf (AST/SGOT) 51 U/L (15-37) H Alanine Aminotransferase (ALT/SGPT) 72 U/L (12-78) Alkaline Phosphatase 242 U/L (46-116) H C-Reactive Protein, Quantitative 3.5 mg/dL (0.00-0.90) H Total Protein 6.3 G/DL (6.4-8.2) L Albumin 2.1 G/DL (3.4-5.0) L Globulin 4.2 g/dL Albumin/Globulin Ratio 0.5 (1.0-2.7) L Hong Coley MD Apr 25, 2018 13:48
--- NOTE | 2018-04-25 13:51 | Diagnostic Imaging Report ---
Clinical Indication: Sepsis, history of lymphoma, abdominal pain Technique: No oral contrast, per referring physician request. IV administration nonionic contrast. Venous phase spiral acquisition obtained through the abdomen and pelvis. Multiplanar reconstructions were generated. Total dose length product 4023 mGycm. CTDIvol(s) 70, 70, 18 mGy. Dose reduction achieved using automated exposure control Comparison: none Findings: The appendix is normal. Moderate amount of dense stool is seen in the proximal colon. No evidence of diverticulosis or diverticulitis. No small bowel distention. No free or loculated intraperitoneal gas or fluid. There is a small fat-containing umbilical hernia. Distal esophagus, stomach, duodenum are unremarkable. The gallbladder is surgically absent. There is mild ectasia of the extrahepatic and central intrahepatic bile ducts, presumably related to such. There are capsular calcifications in the right lobe of the liver. The liver is otherwise unremarkable. The pancreas, spleen, adrenals are unremarkable. The right kidney demonstrates mild hydronephrosis and mild hydroureter. No ureteral obstructing lesion or calculus demonstrated. The left kidney demonstrates mild collecting system fullness but no jacinda hydronephrosis or hydroureter. The bladder is markedly distended. No focal renal parenchymal abnormality. Uterus demonstrates a small 1.7 cm enhancing mass in the right fundal myometrium. Normal adnexa. There is ill-defined infiltration of the retroperitoneal fat without discrete luna enlargement. There are prominent but not frankly enlarged retroperitoneal nodes. No pelvic mass or adenopathy demonstrated The included lung bases demonstrate some atelectasis or scarring on the left, are otherwise unremarkable. The heart is enlarged. There are dense mitral calcifications. There is an aortic valve prosthesis. There are median sternotomy sutures. The bone width demonstrate degenerative spondylosis changes.. There is edema of the subcutaneous fat of the bilateral flanks, buttocks, hips, and lumbar region. Impression: No acute process Somewhat unusual infiltration of the retroperitoneal fat, likely related to stated clinical history of retroperitoneal radiation. No evidence of adenopathy Right hydronephrosis, left renal collecting system fullness. Probably related to a very distended bladder has no downstream obstructive lesion is demonstrated Evidence of prior cholecystectomy Small 1.7 cm right uterine fundal fibroid Cardiomegaly Edema of the bilateral flanks, buttocks, hips, and lumbar region Other findings as noted, including degenerative spondylosis, evidence of prior median sternotomy with aortic valve prosthesis, mitral annular calcifications, basilar pulmonary parenchymal atelectasis or scarring, right lobe liver capsular calcification, small fat-containing umbilical hernia The CT scanner at [facility] is accredited by the [employer] and the scans are performed using protocols designed to limit radiation exposure to as low as reasonably achievable to attain images of sufficient resolution adequate for diagnostic evaluation.
--- NOTE | 2018-04-25 14:39 | Cardiology Report ---
APPROVED REPORT EKG Measurement Heart [id number] Normal sinus rhythm Normal ECG
--- NOTE | 2018-04-25 17:12 | Internal Med Progress Note ---
Subjective Date of Service: Apr 25, 2018 Physician Name Raad Her Attending Physician Jaxon Chow MD Current Medications Medications (Trade) Dose Ordered Sig/Ibrahima Route PRN Reason Start Time Stop Time Status Last Admin Dose Admin Acetaminophen (Tylenol) 650 mg Q4H PRN ORAL fever (temp>100.5 F) 04/25/18 07:00 05/20/18 18:59 Acyclovir 400 mg/ Dextrose 110 ml @ 110 mls/hr Q12H IV 04/25/18 08:00 05/21/18 19:59 04/25/18 08:00 Albuterol/ Ipratropium (Albuterol/ Ipratropium) 3 ml Q4H PRN HHN Shortness of Breath 04/25/18 07:00 04/28/18 10:59 Amlodipine Besylate (Norvasc) 10 mg DAILY ORAL 04/26/18 09:00 05/26/18 08:59 Ciprofloxacin (Ciloxan Opth Soln) 2 drop BID RIGHT EAR 04/25/18 09:00 04/28/18 17:59 04/25/18 13:26 Dexamethasone Sodium Phosphate (Decadron 4mg/ml vial) 4 mg Q12HR IVP 04/25/18 09:00 05/21/18 20:59 04/25/18 08:36 Dextrose (Dextrose 50%) 25 ml Q30M PRN IV Hypoglycemia 04/25/18 06:45 05/20/18 19:00 Dextrose (Dextrose 50%) 50 ml Q30M PRN IV hypoglycemia 04/25/18 06:45 05/20/18 19:14 Dextrose/ Electrolytes 1,000 ml @ 75 mls/hr [id number] IV 04/25/18 06:30 05/23/18 15:07 04/25/18 06:56 Hydralazine HCl (Apresoline) 25 mg Q8H PRN ORAL For High Blood Pressure 04/25/18 11:00 05/20/18 18:59 04/25/18 11:03 Insulin Aspart (NovoLOG) BEFORE MEALS AND HS SUBQ 04/25/18 11:30 05/25/18 11:29 04/25/18 16:38 Levofloxacin 150 ml @ 100 mls/hr EVERY OTHER DAY IVPB 04/26/18 09:00 05/01/18 13:59 Metoprolol Tartrate (Lopressor) 25 mg Q8H PRN ORAL heart rate more than 110 04/25/18 13:00 05/25/18 12:59 Morphine Sulfate (Morphine Sulfate) 2 mg Q4H PRN IVP Moderate Pain (Pain Scale 4-6) 04/25/18 07:00 04/27/18 18:59 Nitroglycerin (Ntg) 0.4 mg Q5M PRN SL Prn Chest Pain 04/25/18 06:35 05/20/18 18:59 Ondansetron HCl (Zofran) 4 mg Q6H PRN IVP Nausea & Vomiting 04/25/18 07:00 05/20/18 18:59 Polyethylene Glycol (Miralax) 17 gm DAILYPRN PRN ORAL Constipation 04/25/18 19:00 05/20/18 18:59 Risperidone (RisperDAL) 1 mg BEDTIME PRN ORAL agitation 04/25/18 21:00 05/21/18 13:44 Temazepam (Restoril) 15 mg HSPRN PRN ORAL Insomnia 04/25/18 19:00 04/27/18 18:59 Allergies: Coded Allergies: No Known Allergies (Unverified , 04/20/18) ROS Limited/Unobtainable: No Constitutional: Reports: no symptoms HEENT: Reports: no symptoms Cardiovascular: Reports: no symptoms Respiratory: Reports: no symptoms Gastrointestinal/Abdominal: Reports: no symptoms Genitourinary: Reports: no symptoms Neurologic/Psychiatric: Reports: no symptoms Subjective 83 YO F with Non Hodgkins Lymphoma admitted with fever and dehydration. Now sepsis. Cover for Int Jemal-Dr Chow Objective Last Vital Signs Date Time Temp Pulse Resp B/P (MAP) Pulse Ox O2 Delivery O2 Flow Rate FiO2 04/25/18 14:53 98 165/88 04/25/18 12:00 98.1 19 100 04/25/18 09:00 Room Air 04/24/18 19:30 21 04/20/18 22:47 2.0 Laboratory Tests Test 04/25/18 04:00 White Blood Count 8.4 K/UL (4.8-10.8) Red Blood Count 3.02 M/UL (4.20-5.40) L Hemoglobin 9.1 G/DL (12.0-16.0) L Hematocrit 27.4 % (37.0-47.0) L Mean Corpuscular Volume 91 FL (80-99) Mean Corpuscular Hemoglobin 30.2 PG (27.0-31.0) Mean Corpuscular Hemoglobin Concent 33.2 G/DL (32.0-36.0) Red Cell Distribution Width 13.7 % (11.6-14.8) Platelet Count 198 K/UL (150-450) Mean Platelet Volume 7.2 FL (6.5-10.1) Neutrophils (%) (Auto) % (45.0-75.0) Lymphocytes (%) (Auto) % (20.0-45.0) Monocytes (%) (Auto) % (1.0-10.0) Eosinophils (%) (Auto) % (0.0-3.0) Basophils (%) (Auto) % (0.0-2.0) Erythrocyte Sedimentation Rate 118 MM/HR (0-30) H Sodium Level 137 MMOL/L (136-145) Potassium Level 4.7 MMOL/L (3.5-5.1) Chloride Level 107 MMOL/L (98-107) Carbon Dioxide Level 22 MMOL/L (21-32) Anion Gap 8 mmol/L (5-15) Blood Urea Nitrogen 20 mg/dL (7-18) H Creatinine 0.9 MG/DL (0.55-1.30) Estimat Glomerular Filtration Rate mL/min (>60) Glucose Level 200 MG/DL (74-106) H Calcium Level 8.7 MG/DL (8.5-10.1) Phosphorus Level 2.5 MG/DL (2.5-4.9) Magnesium Level 1.4 MG/DL (1.8-2.4) L Total Bilirubin 0.4 MG/DL (0.2-1.0) Aspartate Amino Transf (AST/SGOT) 51 U/L (15-37) H Alanine Aminotransferase (ALT/SGPT) 72 U/L (12-78) Alkaline Phosphatase 242 U/L (46-116) H C-Reactive Protein, Quantitative 3.5 mg/dL (0.00-0.90) H Total Protein 6.3 G/DL (6.4-8.2) L Albumin 2.1 G/DL (3.4-5.0) L Globulin 4.2 g/dL Albumin/Globulin Ratio 0.5 (1.0-2.7) L Intake and Output 04/24/18 04/25/18 18:59 06:59 Intake Total 600 ml Output Total 450 ml 2300 ml Balance 150 ml -2300 ml IV Total 600 ml Output Urine Total 450 ml 2300 ml Objective Objective GENERAL: awake, responsive, Cachectic. HEAD AND NECK: PERRLA, EOMI, Right side of face Hilario palsy. NECK: Supple. No JVD. LUNGS: decrease air entry at bases. Fair inspiratory effort. No wheeze or rhonchi. HEART: S1 and S2 RR, No Murmur. ABDOMEN: Soft, nondistended, and nontender. Positive bowel sounds. EXTREMITIES: No cyanosis, clubbing, or edema. Right upper extremity PAS port, NEUROLOGIC: Cranial nerves II through XII grossly intact. Moving all extremities slowly. Assessment/Plan Assessment/Plan Assessment/Plan Assessment/Plan ASSESSMENT: 1. PSEUDOMONAS AERUGINOSA bacteremia / Sepsis. 2. Dehydration. 3. Tachycardia. 4. Non-Hodgkin lymphoma. 5. Diabetes type 2. 6. Hypertension. 7. Anemia. 8. History of right-sided Hilario palsy. PLAN: In telemetry. F/U with laboratory and culture. Antibiotic: Levaquin Discussion with the daughter extensively at bedside. Code status, Full Code. DVT prophylaxis. Heparin, subcu. Follow up with Dr. Negron, Pulmonary, Critical Care, Dr. Coley , cardiology , and Dr. Ratliff Infectious Disease IVF Monitor BS On Metoprol to IV Raad Her MD Apr 25, 2018 17:12
[2018-04-25] MEDS ORDERED: Miralax 17gm pkt ORAL PRN (19:00)
--- NOTE | 2018-04-25 23:43 | General Progress Note ---
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 Status: unchanged Assessment/Plan risperdal prn raise the head Subjective Date patient seen: Apr 24, 2018 Neurologic/Psychiatric: Reports: anxiety Allergies: Coded Allergies: No Known Allergies (Unverified , 04/20/18) Subjective waxing and waning of consciousness Objective Last 24 Hour Vital Signs Date Time Temp Pulse Resp B/P (MAP) Pulse Ox O2 Delivery O2 Flow Rate FiO2 04/25/18 21:30 158/74 (102) 04/25/18 21:00 Room Air 04/25/18 20:16 172/88 04/25/18 20:00 97.5 100 20 172/88 (116) 99 04/25/18 16:00 97.0 90 19 154/75 (101) 98 04/25/18 14:53 98 165/88 04/25/18 12:00 98.1 98 19 165/88 (113) 100 04/25/18 11:03 163/88 04/25/18 10:57 92 163/88 (113) 04/25/18 09:00 Room Air 04/25/18 08:36 87 170/86 04/25/18 08:00 97.9 87 18 170/86 (114) 99 04/25/18 05:37 88 150/78 04/25/18 04:00 98.4 88 20 150/78 (102) 99 04/25/18 03:21 77 04/25/18 00:00 98.7 87 19 141/86 (104) 99 Intake and Output 04/24/18 04/25/18 18:59 06:59 Intake Total 600 ml Output Total 450 ml 2300 ml Balance 150 ml -2300 ml IV Total 600 ml Output Urine Total 450 ml 2300 ml Laboratory Tests 04/25/18 04:00: White Blood Count 8.4, Red Blood Count 3.02L, Hemoglobin 9.1L, Hematocrit 27.4L , Mean Corpuscular Volume 91, Mean Corpuscular Hemoglobin 30.2, Mean Corpuscular Hemoglobin Concent 33.2, Red Cell Distribution Width 13.7, Platelet Count 198, Mean Platelet Volume 7.2, Neutrophils (%) (Auto) , Lymphocytes (%) ( Auto) , Monocytes (%) (Auto) , Eosinophils (%) (Auto) , Basophils (%) (Auto) , Erythrocyte Sedimentation Rate 118H, Sodium Level 137, Potassium Level 4.7, Chloride Level 107, Carbon Dioxide Level 22, Anion Gap 8, Blood Urea Nitrogen 20H, Creatinine 0.9, Estimat Glomerular Filtration Rate , Glucose Level 200H, Calcium Level 8.7, Phosphorus Level 2.5, Magnesium Level 1.4L, Total Bilirubin 0.4, Aspartate Amino Transf (AST/SGOT) 51H, Alanine Aminotransferase (ALT/SGPT) 72, Alkaline Phosphatase 242H, C-Reactive Protein, Quantitative 3.5H, Total Protein 6.3L, Albumin 2.1L, Globulin 4.2, Albumin/Globulin Ratio 0.5L Height (Feet): 4 Height (Inches): 11.00 Weight (Pounds): 130 General Appearance: alert, confused, agitated Zev Thompson MD Apr 25, 2018 23:43
--- NOTE | 2018-04-25 23:44 | General Progress Note ---
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 Status: stable Assessment/Plan risperdal prn raise the head Subjective Date patient seen: Apr 25, 2018 Neurologic/Psychiatric: Reports: anxiety Allergies: Coded Allergies: No Known Allergies (Unverified , 04/20/18) Subjective waxing and waning of consciousness Objective Last 24 Hour Vital Signs Date Time Temp Pulse Resp B/P (MAP) Pulse Ox O2 Delivery O2 Flow Rate FiO2 04/25/18 21:30 158/74 (102) 04/25/18 21:00 Room Air 04/25/18 20:16 172/88 04/25/18 20:00 97.5 100 20 172/88 (116) 99 04/25/18 16:00 97.0 90 19 154/75 (101) 98 04/25/18 14:53 98 165/88 04/25/18 12:00 98.1 98 19 165/88 (113) 100 04/25/18 11:03 163/88 04/25/18 10:57 92 163/88 (113) 04/25/18 09:00 Room Air 04/25/18 08:36 87 170/86 04/25/18 08:00 97.9 87 18 170/86 (114) 99 04/25/18 05:37 88 150/78 04/25/18 04:00 98.4 88 20 150/78 (102) 99 04/25/18 03:21 77 04/25/18 00:00 98.7 87 19 141/86 (104) 99 Intake and Output 04/24/18 04/25/18 18:59 06:59 Intake Total 600 ml Output Total 450 ml 2300 ml Balance 150 ml -2300 ml IV Total 600 ml Output Urine Total 450 ml 2300 ml Laboratory Tests 04/25/18 04:00: White Blood Count 8.4, Red Blood Count 3.02L, Hemoglobin 9.1L, Hematocrit 27.4L , Mean Corpuscular Volume 91, Mean Corpuscular Hemoglobin 30.2, Mean Corpuscular Hemoglobin Concent 33.2, Red Cell Distribution Width 13.7, Platelet Count 198, Mean Platelet Volume 7.2, Neutrophils (%) (Auto) , Lymphocytes (%) ( Auto) , Monocytes (%) (Auto) , Eosinophils (%) (Auto) , Basophils (%) (Auto) , Erythrocyte Sedimentation Rate 118H, Sodium Level 137, Potassium Level 4.7, Chloride Level 107, Carbon Dioxide Level 22, Anion Gap 8, Blood Urea Nitrogen 20H, Creatinine 0.9, Estimat Glomerular Filtration Rate , Glucose Level 200H, Calcium Level 8.7, Phosphorus Level 2.5, Magnesium Level 1.4L, Total Bilirubin 0.4, Aspartate Amino Transf (AST/SGOT) 51H, Alanine Aminotransferase (ALT/SGPT) 72, Alkaline Phosphatase 242H, C-Reactive Protein, Quantitative 3.5H, Total Protein 6.3L, Albumin 2.1L, Globulin 4.2, Albumin/Globulin Ratio 0.5L Height (Feet): 4 Height (Inches): 11.00 Weight (Pounds): 130 General Appearance: alert, confused, agitated Zev Thompson MD Apr 25, 2018 23:44
[2018-04-26] VITALS (7 sets, daily range): BP systolic 135–183; BP diastolic 73–86
[2018-04-26] MEDS: HydrALAZINE 25mg tab ORAL PRN (04:09)
[2018-04-26] MEDS: NovoLOG Insulin Flexpen SUBQ SCH ×4 (06:02→21:32)
[2018-04-26] MEDS: ACYCLOVIR IV SCH (08:18)
[2018-04-26] MEDS: D5W IV SCH (08:18)
[2018-04-26] MEDS: Dexamethasone 4mg/ml vial IVP SCH (08:35)
[2018-04-26] MEDS: Ciprofloxacin Opth Soln 2.5ml RIGHT EAR SCH ×2 (08:48→17:56)
[2018-04-26 09:07] LABS: BASOPHILS % (AUTO) 1.1 % (0.0-2.0); EOSINOPHILS % (AUTO) 0.6 % (0.0-3.0); HEMATOCRIT 27.6 % (37.0-47.0); HEMOGLOBIN 9.3 G/DL (12.0-16.0); LYMPHOCYTES % (AUTO) 14.3 % (20.0-45.0); MEAN CORPUSCULAR VOLUME 93 FL (80-99); MONOCYTES % (AUTO) 13.8 % (1.0-10.0); NEUTROPHILS % (AUTO) 70.2 % (45.0-75.0); PLATELET COUNT 231 K/UL (150-450); RED BLOOD COUNT 2.97 M/UL (4.20-5.40); RED CELL DISTRIBUTION WIDTH 13.4 % (11.6-14.8); WHITE BLOOD COUNT 10.7 K/UL (4.8-10.8)
[2018-04-26 09:59] LABS: ALANINE AMINOTRANSFERASE 93 U/L (12-78); ALBUMIN 2.3 G/DL (3.4-5.0); ALBUMIN/GLOBULIN RATIO 0.6 (1.0-2.7); ALKALINE PHOSPHATASE 233 U/L (46-116); ANION GAP 8 mmol/L (5-15); ASPARTATE AMINO TRANSFERASE 64 U/L (15-37); BILIRUBIN,TOTAL 0.4 MG/DL (0.2-1.0); BLOOD UREA NITROGEN 21 mg/dL (7-18); CALCIUM 8.7 MG/DL (8.5-10.1); CARBON DIOXIDE 23 MMOL/L (21-32); CHLORIDE 105 MMOL/L (98-107); CREATININE 0.9 MG/DL (0.55-1.30); SODIUM 136 MMOL/L (136-145)
--- NOTE | 2018-04-26 11:51 | Infectious Diseases Prog Note ---
Assessment/Plan Assessment/Plan Assessment/Plan Severe sepsis, improving- 2ry to PsA bacteremia (?source: suspect PICC line infection, no intrabomidnal acute process, CT ear stable/no abscess, ucx neg)- r /o endocarditis -04/20 Bcx 2/4 PsA (bose S); 04/21 NTD u/a wbc 5-10, nit neg, leuk +1; ucx Neg influenza sc neg -2d echo: Heavily thickened mitral valve leaflets with reduced excursion. Echogenic material noted on posterior mitral valve leaflet. Heavy mitral annulus and aortic root calcification. Bioprosthetic aortic valve replacement noted -CXR: Left basilar atelectasis. No acute process otherwise. PICC -CT abd/p: No acute process. Somewhat unusual infiltration of the retroperitoneal fat, likely related to stated clinical history of retroperitoneal radiation. No evidence of adenopathy Right hydronephrosis, left renal collecting system fullness. Probably related to a very distended bladder has no downstream obstructive lesion is demonstrated. Evidence of prior cholecystectomy. 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 No evidence of facial or tonsillar abscess CT Internal auditory canal: Complete opacification of the left mastoid air cells and middle ear cavity, consistent with chronic mastoiditis and chronic otitis media. No evidence of ossicular erosion to suggest cholesteatoma. Complete opacification of the right mastoid air cells, near complete opacification of the middle ear cavity as described. This consistent with chronic mastoiditis and chronic otitis media. No evidence of ossicular erosion to suggest cholesteatoma. No contrast enhancing lesion demonstrated CT head: Age-related volume loss. Note that ventriculomegaly is somewhat out of proportion to the degree of sulcal dilatation. This is probably due to predominant central component of cerebral volume loss, but component of normal pressure hydrocephalus not completely excludable. 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 Negative for acute intracranial bleed, mass effect, or contrast enhancing lesion. Right ethmoid sinus disease. 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 Will continue to follow along with you. Discussed with RN Subjective Allergies: Coded Allergies: No Known Allergies (Unverified , 04/20/18) Subjective afebrile no leukocytosis repeat bcx NTD Objective Vital Signs Last 24 Hour Vital Signs Date Time Temp Pulse Resp B/P (MAP) Pulse Ox O2 Delivery O2 Flow Rate FiO2 04/26/18 09:00 Room Air 04/26/18 08:35 85 145/77 04/26/18 08:00 97.1 85 20 145/77 (99) 100 04/26/18 05:15 150/78 (102) 04/26/18 04:09 172/68 04/26/18 04:00 97.8 86 20 172/86 (114) 99 04/26/18 00:00 97.2 89 18 152/80 (104) 98 04/25/18 22:15 92 18 Room Air 21 04/25/18 21:30 158/74 (102) 04/25/18 21:00 Room Air 04/25/18 20:16 172/88 04/25/18 20:00 97.5 100 20 172/88 (116) 99 04/25/18 16:00 97.0 90 19 154/75 (101) 98 04/25/18 14:53 98 165/88 04/25/18 12:00 98.1 98 19 165/88 (113) 100 Height (Feet): 4 Height (Inches): 11.00 Weight (Pounds): 128 Objective GENERAL: The patient is cachectic. The patient has chronic illness. HEAD AND NECK: Pupils are reactive to light. Right side of face, she has Hilario palsy. R ear with minimal yellowish drainage NECK: Supple. No JVD. LUNGS: Good air entry. Poor inspiratory effort. No wheeze or rhonchi. HEART: S1 and S2. Tachycardic. ABDOMEN: Soft, nondistended, and nontender. Positive bowel sounds. EXTREMITIES: No cyanosis, clubbing, or edema. Right upper extremity PAS port was noted. Laboratory Tests Test 04/26/18 08:50 White Blood Count 10.7 K/UL (4.8-10.8) Red Blood Count 2.97 M/UL (4.20-5.40) L Hemoglobin 9.3 G/DL (12.0-16.0) L Hematocrit 27.6 % (37.0-47.0) L Mean Corpuscular Volume 93 FL (80-99) Mean Corpuscular Hemoglobin 31.5 PG (27.0-31.0) H Mean Corpuscular Hemoglobin Concent 33.8 G/DL (32.0-36.0) Red Cell Distribution Width 13.4 % (11.6-14.8) Platelet Count 231 K/UL (150-450) Mean Platelet Volume 6.5 FL (6.5-10.1) Neutrophils (%) (Auto) 70.2 % (45.0-75.0) Lymphocytes (%) (Auto) 14.3 % (20.0-45.0) L Monocytes (%) (Auto) 13.8 % (1.0-10.0) H Eosinophils (%) (Auto) 0.6 % (0.0-3.0) Basophils (%) (Auto) 1.1 % (0.0-2.0) Sodium Level 136 MMOL/L (136-145) Potassium Level 4.0 MMOL/L (3.5-5.1) Chloride Level 105 MMOL/L (98-107) Carbon Dioxide Level 23 MMOL/L (21-32) Anion Gap 8 mmol/L (5-15) Blood Urea Nitrogen 21 mg/dL (7-18) H Creatinine 0.9 MG/DL (0.55-1.30) Estimat Glomerular Filtration Rate mL/min (>60) Glucose Level 108 MG/DL (74-106) H Calcium Level 8.7 MG/DL (8.5-10.1) Phosphorus Level 2.0 MG/DL (2.5-4.9) L Magnesium Level 1.2 MG/DL (1.8-2.4) L Total Bilirubin 0.4 MG/DL (0.2-1.0) Aspartate Amino Transf (AST/SGOT) 64 U/L (15-37) H Alanine Aminotransferase (ALT/SGPT) 93 U/L (12-78) H Alkaline Phosphatase 233 U/L (46-116) H Total Protein 6.4 G/DL (6.4-8.2) Albumin 2.3 G/DL (3.4-5.0) L Globulin 4.1 g/dL Albumin/Globulin Ratio 0.6 (1.0-2.7) L Current Medications Medications (Trade) Dose Ordered Sig/Ibrahima Route PRN Reason Start Time Stop Time Status Last Admin Dose Admin Acetaminophen (Tylenol) 650 mg Q4H PRN ORAL fever (temp>100.5 F) 04/25/18 07:00 05/20/18 18:59 Acyclovir 400 mg/ Dextrose 110 ml @ 110 mls/hr Q12H IV 04/25/18 08:00 05/21/18 19:59 04/26/18 08:18 Albuterol/ Ipratropium (Albuterol/ Ipratropium) 3 ml Q4H PRN HHN Shortness of Breath 04/25/18 07:00 04/28/18 10:59 Amlodipine Besylate (Norvasc) 10 mg DAILY ORAL 04/26/18 09:00 05/26/18 08:59 04/26/18 08:35 Ciprofloxacin (Ciloxan Opth Soln) 2 drop BID RIGHT EAR 04/25/18 09:00 04/28/18 17:59 04/26/18 08:48 Dexamethasone Sodium Phosphate (Decadron 4mg/ml vial) 4 mg Q12HR IVP 04/25/18 09:00 05/21/18 20:59 04/26/18 08:35 Dextrose (Dextrose 50%) 25 ml Q30M PRN IV Hypoglycemia 12/18/18 06:45 05/20/18 19:00 Dextrose (Dextrose 50%) 50 ml Q30M PRN IV hypoglycemia 04/25/18 06:45 05/20/18 19:14 Dextrose/ Electrolytes 1,000 ml @ 75 mls/hr [id number] IV 04/25/18 06:30 05/23/18 15:07 04/25/18 20:15 Hydralazine HCl (Apresoline) 25 mg Q8H PRN ORAL For High Blood Pressure 04/25/18 11:00 05/20/18 18:59 04/26/18 04:09 Insulin Aspart (NovoLOG) BEFORE MEALS AND HS SUBQ 04/25/18 11:30 05/25/18 11:29 04/26/18 06:02 Levofloxacin 150 ml @ 100 mls/hr EVERY OTHER DAY IVPB 04/26/18 09:00 05/01/18 13:59 Metoprolol Tartrate (Lopressor) 25 mg Q8H PRN ORAL heart rate more than 110 04/25/18 13:00 05/25/18 12:59 Morphine Sulfate (Morphine Sulfate) 2 mg Q4H PRN IVP Moderate Pain (Pain Scale 4-6) 04/25/18 07:00 04/27/18 18:59 Nitroglycerin (Ntg) 0.4 mg Q5M PRN SL Prn Chest Pain 04/25/18 06:35 05/20/18 18:59 Ondansetron HCl (Zofran) 4 mg Q6H PRN IVP Nausea & Vomiting 04/25/18 07:00 05/20/18 18:59 Polyethylene Glycol (Miralax) 17 gm DAILYPRN PRN ORAL Constipation 04/25/18 19:00 05/20/18 18:59 Risperidone (RisperDAL) 1 mg BEDTIME PRN ORAL agitation 04/25/18 21:00 05/21/18 13:44 Temazepam (Restoril) 15 mg HSPRN PRN ORAL Insomnia 04/25/18 19:00 04/27/18 18:59 Lakesha Ratliff M.D. Apr 26, 2018 11:51
--- NOTE | 2018-04-26 13:07 | Internal Med Progress Note ---
Subjective Date of Service: Apr 26, 2018 Physician Name Raad Her Attending Physician Jaxon Chow MD Current Medications Medications (Trade) Dose Ordered Sig/Ibrahima Route PRN Reason Start Time Stop Time Status Last Admin Dose Admin Acetaminophen (Tylenol) 650 mg Q4H PRN ORAL fever (temp>100.5 F) 04/25/18 07:00 05/20/18 18:59 Acyclovir 400 mg/ Dextrose 110 ml @ 110 mls/hr Q12H IV 04/25/18 08:00 05/21/18 19:59 04/26/18 08:18 Albuterol/ Ipratropium (Albuterol/ Ipratropium) 3 ml Q4H PRN HHN Shortness of Breath 04/25/18 07:00 04/28/18 10:59 Amlodipine Besylate (Norvasc) 10 mg DAILY ORAL 04/26/18 09:00 05/26/18 08:59 04/26/18 08:35 Ciprofloxacin (Ciloxan Opth Soln) 2 drop BID RIGHT EAR 04/25/18 09:00 04/28/18 17:59 04/26/18 08:48 Dexamethasone Sodium Phosphate (Decadron 4mg/ml vial) 4 mg Q12HR IVP 04/25/18 09:00 05/21/18 20:59 04/26/18 08:35 Dextrose (Dextrose 50%) 25 ml Q30M PRN IV Hypoglycemia 04/25/18 06:45 05/20/18 19:00 Dextrose (Dextrose 50%) 50 ml Q30M PRN IV hypoglycemia 04/25/18 06:45 05/20/18 19:14 Dextrose/ Electrolytes 1,000 ml @ 75 mls/hr [id number] IV 04/25/18 06:30 05/23/18 15:07 04/25/18 20:15 Hydralazine HCl (Apresoline) 25 mg Q8H PRN ORAL For High Blood Pressure 04/25/18 11:00 05/20/18 18:59 04/26/18 04:09 Insulin Aspart (NovoLOG) BEFORE MEALS AND HS SUBQ 04/25/18 11:30 05/25/18 11:29 04/26/18 12:03 Levofloxacin 150 ml @ 100 mls/hr EVERY OTHER DAY IVPB 04/26/18 09:00 05/01/18 13:59 Metoprolol Tartrate (Lopressor) 25 mg Q8H PRN ORAL heart rate more than 110 04/25/18 13:00 05/25/18 12:59 Morphine Sulfate (Morphine Sulfate) 2 mg Q4H PRN IVP Moderate Pain (Pain Scale 4-6) 04/25/18 07:00 04/27/18 18:59 Nitroglycerin (Ntg) 0.4 mg Q5M PRN SL Prn Chest Pain 04/25/18 06:35 05/20/18 18:59 Ondansetron HCl (Zofran) 4 mg Q6H PRN IVP Nausea & Vomiting 04/25/18 07:00 05/20/18 18:59 Polyethylene Glycol (Miralax) 17 gm DAILYPRN PRN ORAL Constipation 04/25/18 19:00 05/20/18 18:59 Risperidone (RisperDAL) 1 mg BEDTIME PRN ORAL agitation 04/25/18 21:00 05/21/18 13:44 Temazepam (Restoril) 15 mg HSPRN PRN ORAL Insomnia 04/25/18 19:00 04/27/18 18:59 Allergies: Coded Allergies: No Known Allergies (Unverified , 04/20/18) ROS Limited/Unobtainable: No Constitutional: Reports: no symptoms HEENT: Reports: no symptoms Cardiovascular: Reports: no symptoms Respiratory: Reports: no symptoms Gastrointestinal/Abdominal: Reports: no symptoms Genitourinary: Reports: no symptoms Neurologic/Psychiatric: Reports: no symptoms Subjective 83 YO F with Non Hodgkins Lymphoma admitted with fever and dehydration. Now sepsis. Cover for Int Med-Dr Chow Objective Last Vital Signs Date Time Temp Pulse Resp B/P (MAP) Pulse Ox O2 Delivery O2 Flow Rate FiO2 04/26/18 09:38 85 18 Room Air 21 04/26/18 08:35 145/77 04/26/18 08:00 97.1 100 04/20/18 22:47 2.0 Laboratory Tests Test 04/26/18 08:50 White Blood Count 10.7 K/UL (4.8-10.8) Red Blood Count 2.97 M/UL (4.20-5.40) L Hemoglobin 9.3 G/DL (12.0-16.0) L Hematocrit 27.6 % (37.0-47.0) L Mean Corpuscular Volume 93 FL (80-99) Mean Corpuscular Hemoglobin 31.5 PG (27.0-31.0) H Mean Corpuscular Hemoglobin Concent 33.8 G/DL (32.0-36.0) Red Cell Distribution Width 13.4 % (11.6-14.8) Platelet Count 231 K/UL (150-450) Mean Platelet Volume 6.5 FL (6.5-10.1) Neutrophils (%) (Auto) 70.2 % (45.0-75.0) Lymphocytes (%) (Auto) 14.3 % (20.0-45.0) L Monocytes (%) (Auto) 13.8 % (1.0-10.0) H Eosinophils (%) (Auto) 0.6 % (0.0-3.0) Basophils (%) (Auto) 1.1 % (0.0-2.0) Sodium Level 136 MMOL/L (136-145) Potassium Level 4.0 MMOL/L (3.5-5.1) Chloride Level 105 MMOL/L (98-107) Carbon Dioxide Level 23 MMOL/L (21-32) Anion Gap 8 mmol/L (5-15) Blood Urea Nitrogen 21 mg/dL (7-18) H Creatinine 0.9 MG/DL (0.55-1.30) Estimat Glomerular Filtration Rate mL/min (>60) Glucose Level 108 MG/DL (74-106) H Calcium Level 8.7 MG/DL (8.5-10.1) Phosphorus Level 2.0 MG/DL (2.5-4.9) L Magnesium Level 1.2 MG/DL (1.8-2.4) L Total Bilirubin 0.4 MG/DL (0.2-1.0) Aspartate Amino Transf (AST/SGOT) 64 U/L (15-37) H Alanine Aminotransferase (ALT/SGPT) 93 U/L (12-78) H Alkaline Phosphatase 233 U/L (46-116) H Total Protein 6.4 G/DL (6.4-8.2) Albumin 2.3 G/DL (3.4-5.0) L Globulin 4.1 g/dL Albumin/Globulin Ratio 0.6 (1.0-2.7) L Intake and Output 04/25/18 04/26/18 19:00 07:00 Intake Total 980 ml 845 ml Output Total 600 ml 1500 ml Balance 380 ml -655 ml Intake Oral 120 ml 60 ml IV Total 860 ml 785 ml Output Urine Total 600 ml 1500 ml Objective Objective GENERAL: awake, responsive, Cachectic. HEAD AND NECK: PERRLA, EOMI, Right side of face Hilario palsy. NECK: Supple. No JVD. LUNGS: decrease air entry at bases. Fair inspiratory effort. No wheeze or rhonchi. HEART: S1 and S2 RR, No Murmur. ABDOMEN: Soft, nondistended, and nontender. Positive bowel sounds. EXTREMITIES: No cyanosis, clubbing, or edema. Right upper extremity PAS port, NEUROLOGIC: Cranial nerves II through XII grossly intact. Moving all extremities slowly. Assessment/Plan Assessment/Plan Assessment/Plan Assessment/Plan ASSESSMENT: 1. PSEUDOMONAS AERUGINOSA bacteremia / Sepsis. 2. Dehydration. 3. Tachycardia. 4. Non-Hodgkin lymphoma. 5. Diabetes type 2. 6. Hypertension. 7. Anemia. 8. History of right-sided Hilario palsy. PLAN: In telemetry. F/U with laboratory and culture. Antibiotic: Levaquin Discussion with the daughter extensively at bedside. Code status, Full Code. DVT prophylaxis. Heparin, subcu. Follow up with Dr. Negron, Pulmonary, Critical Care, Dr. Coley , cardiology , and Dr. Ratliff Infectious Disease IVF Monitor BS On Metoprol to IV HerRaad pennington MD Apr 26, 2018 13:07
[2018-04-26] MEDS ORDERED: LEVOFLOXACIN500 MG ORAL (13:56)
--- NOTE | 2018-04-26 13:58 | Pulmonology Progress Note ---
Assessment/Plan Problems: (1) Septic shock (2) Non-Hodgkin lymphoma (3) History of hypertension (4) CAD (coronary artery disease) (5) Diabetes mellitus Assessment/Plan on amlodipoin [place] sensitive pseudomonas continue abx [place] CT scan ordered to look for the source of Abx sliding scale swallow evaluation med/surg d/w daughter at the bed site pt can go home to finish the course of abx Subjective ROS Limited/Unobtainable: No Constitutional: Reports: no symptoms HEENT: Repors: no symptoms Respiratory: Reports: no symptoms Allergies: Coded Allergies: No Known Allergies (Unverified , 04/20/18) Objective Last 24 Hour Vital Signs Date Time Temp Pulse Resp B/P (MAP) Pulse Ox O2 Delivery O2 Flow Rate FiO2 04/26/18 12:00 98.3 113 19 135/84 (101) 100 04/26/18 09:38 85 18 Room Air 21 04/26/18 09:00 Room Air 04/26/18 08:35 85 145/77 04/26/18 08:00 97.1 85 20 145/77 (99) 100 04/26/18 05:15 150/78 (102) 04/26/18 04:09 172/68 04/26/18 04:00 97.8 86 20 172/86 (114) 99 04/26/18 00:00 97.2 89 18 152/80 (104) 98 04/25/18 22:15 92 18 Room Air 21 04/25/18 21:30 158/74 (102) 04/25/18 21:00 Room Air 04/25/18 20:16 172/88 04/25/18 20:00 97.5 100 20 172/88 (116) 99 04/25/18 16:00 97.0 90 19 154/75 (101) 98 04/25/18 14:53 98 165/88 Intake and Output 04/25/18 04/26/18 19:00 07:00 Intake Total 980 ml 845 ml Output Total 600 ml 1500 ml Balance 380 ml -655 ml Intake Oral 120 ml 60 ml IV Total 860 ml 785 ml Output Urine Total 600 ml 1500 ml Objective General Appearance: cachetic HEENT: normocephalic, atraumatic Respiratory/Chest: chest wall non-tender, lungs clear Cardiovascular: normal peripheral pulses, normal rate Abdomen: normal bowel sounds, soft, non tender Genitourinary: normal external genitalia Extremities: no clubbing Skin: no lesions Neurologic/Psychiatric: normal mood/affect Musculoskeletal: normal muscle bulk Laboratory Tests 04/26/18 08:50: White Blood Count 10.7, Red Blood Count 2.97L, Hemoglobin 9.3L, Hematocrit 27.6L , Mean Corpuscular Volume 93, Mean Corpuscular Hemoglobin 31.5H, Mean Corpuscular Hemoglobin Concent 33.8, Red Cell Distribution Width 13.4, Platelet Count 231, Mean Platelet Volume 6.5, Neutrophils (%) (Auto) 70.2, Lymphocytes (% ) (Auto) 14.3L, Monocytes (%) (Auto) 13.8H, Eosinophils (%) (Auto) 0.6, Basophils (%) (Auto) 1.1, Sodium Level 136, Potassium Level 4.0, Chloride Level 105, Carbon Dioxide Level 23, Anion Gap 8, Blood Urea Nitrogen 21H, Creatinine 0.9, Estimat Glomerular Filtration Rate , Glucose Level 108H, Calcium Level 8.7 , Phosphorus Level 2.0L, Magnesium Level 1.2L, Total Bilirubin 0.4, Aspartate Amino Transf (AST/SGOT) 64H, Alanine Aminotransferase (ALT/SGPT) 93H, Alkaline Phosphatase 233H, Total Protein 6.4, Albumin 2.3L, Globulin 4.1, Albumin/ Globulin Ratio 0.6L Current Medications Medications (Trade) Dose Ordered Sig/Ibrahima Route PRN Reason Start Time Stop Time Status Last Admin Dose Admin Acetaminophen (Tylenol) 650 mg Q4H PRN ORAL fever (temp>100.5 F) 04/25/18 07:00 05/20/18 18:59 Acyclovir 400 mg/ Dextrose 110 ml @ 110 mls/hr Q12H IV 04/25/18 08:00 05/21/18 19:59 04/26/18 08:18 Albuterol/ Ipratropium (Albuterol/ Ipratropium) 3 ml Q4H PRN HHN Shortness of Breath 04/25/18 07:00 04/28/18 10:59 Amlodipine Besylate (Norvasc) 10 mg DAILY ORAL 04/26/18 09:00 05/26/18 08:59 04/26/18 08:35 Ciprofloxacin (Ciloxan Opth Soln) 2 drop BID RIGHT EAR 04/25/18 09:00 04/28/18 17:59 04/26/18 08:48 Dexamethasone Sodium Phosphate (Decadron 4mg/ml vial) 4 mg Q12HR IVP 04/25/18 09:00 05/21/18 20:59 04/26/18 08:35 Dextrose (Dextrose 50%) 25 ml Q30M PRN IV Hypoglycemia 04/25/18 06:45 05/20/18 19:00 Dextrose (Dextrose 50%) 50 ml Q30M PRN IV hypoglycemia 04/25/18 06:45 05/20/18 19:14 Hydralazine HCl (Apresoline) 25 mg Q8H PRN ORAL For High Blood Pressure 04/25/18 11:00 05/20/18 18:59 04/26/18 04:09 Insulin Aspart (NovoLOG) BEFORE MEALS AND HS SUBQ 04/25/18 11:30 05/25/18 11:29 04/26/18 12:03 Levofloxacin 150 ml @ 100 mls/hr EVERY OTHER DAY IVPB 04/26/18 09:00 05/01/18 13:59 Metoprolol Tartrate (Lopressor) 25 mg Q8H PRN ORAL heart rate more than 110 04/25/18 13:00 05/25/18 12:59 Morphine Sulfate (Morphine Sulfate) 2 mg Q4H PRN IVP Moderate Pain (Pain Scale 4-6) 04/25/18 07:00 04/27/18 18:59 Nitroglycerin (Ntg) 0.4 mg Q5M PRN SL Prn Chest Pain 04/25/18 06:35 05/20/18 18:59 Ondansetron HCl (Zofran) 4 mg Q6H PRN IVP Nausea & Vomiting 04/25/18 07:00 05/20/18 18:59 Polyethylene Glycol (Miralax) 17 gm DAILYPRN PRN ORAL Constipation 04/25/18 19:00 05/20/18 18:59 Risperidone (RisperDAL) 1 mg BEDTIME PRN ORAL agitation 04/25/18 21:00 05/21/18 13:44 Temazepam (Restoril) 15 mg HSPRN PRN ORAL Insomnia 04/25/18 19:00 04/27/18 18:59 Ge Negron MD Apr 26, 2018 13:58
--- NOTE | 2018-04-26 14:39 | General Progress Note ---
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 Status: stable, progressing Assessment/Plan risperdal prn raise the head Subjective Neurologic/Psychiatric: Reports: anxiety, depressed Allergies: Coded Allergies: No Known Allergies (Unverified , 04/20/18) Subjective the pt is stable at baseline the pt is somewhat confused. family in the room Objective Last 24 Hour Vital Signs Date Time Temp Pulse Resp B/P (MAP) Pulse Ox O2 Delivery O2 Flow Rate FiO2 04/26/18 12:00 98.3 113 19 135/84 (101) 100 04/26/18 09:38 85 18 Room Air 21 04/26/18 09:00 Room Air 04/26/18 08:35 85 145/77 04/26/18 08:00 97.1 85 20 145/77 (99) 100 04/26/18 05:15 150/78 (102) 04/26/18 04:09 172/68 04/26/18 04:00 97.8 86 20 172/86 (114) 99 04/26/18 00:00 97.2 89 18 152/80 (104) 98 04/25/18 22:15 92 18 Room Air 21 04/25/18 21:30 158/74 (102) 04/25/18 21:00 Room Air 04/25/18 20:16 172/88 04/25/18 20:00 97.5 100 20 172/88 (116) 99 04/25/18 16:00 97.0 90 19 154/75 (101) 98 04/25/18 14:53 98 165/88 Intake and Output 04/25/18 04/26/18 19:00 07:00 Intake Total 980 ml 845 ml Output Total 600 ml 1500 ml Balance 380 ml -655 ml Intake Oral 120 ml 60 ml IV Total 860 ml 785 ml Output Urine Total 600 ml 1500 ml Laboratory Tests 04/26/18 08:50: White Blood Count 10.7, Red Blood Count 2.97L, Hemoglobin 9.3L, Hematocrit 27.6L , Mean Corpuscular Volume 93, Mean Corpuscular Hemoglobin 31.5H, Mean Corpuscular Hemoglobin Concent 33.8, Red Cell Distribution Width 13.4, Platelet Count 231, Mean Platelet Volume 6.5, Neutrophils (%) (Auto) 70.2, Lymphocytes (% ) (Auto) 14.3L, Monocytes (%) (Auto) 13.8H, Eosinophils (%) (Auto) 0.6, Basophils (%) (Auto) 1.1, Sodium Level 136, Potassium Level 4.0, Chloride Level 105, Carbon Dioxide Level 23, Anion Gap 8, Blood Urea Nitrogen 21H, Creatinine 0.9, Estimat Glomerular Filtration Rate , Glucose Level 108H, Calcium Level 8.7 , Phosphorus Level 2.0L, Magnesium Level 1.2L, Total Bilirubin 0.4, Aspartate Amino Transf (AST/SGOT) 64H, Alanine Aminotransferase (ALT/SGPT) 93H, Alkaline Phosphatase 233H, Total Protein 6.4, Albumin 2.3L, Globulin 4.1, Albumin/ Globulin Ratio 0.6L Height (Feet): 4 Height (Inches): 11.00 Weight (Pounds): 128 General Appearance: alert, confused - oriented to self and place Zev Thompson MD Apr 26, 2018 14:39
[2018-04-26] MEDS ORDERED: Nystatin Susp 500,000 units/5ml ORAL SCH (15:00)
[2018-04-26] MEDS: Cefepime HCl 2 GM in D5W 55 ML IVPB SCH (16:33)
[2018-04-26] MEDS: Nystatin Susp 500,000 units/5ml ORAL SCH ×2 (17:56→21:26)
--- NOTE | 2018-04-26 20:43 | Cardiology Progress Note ---
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 mv thickening and increased echoes on 2d echo itp hs dm htn lymphoma cad coronary artery ca score of 194 in 2017) carotid stenosis s/p stent on the right keep on iv abx per ID surveillance cx neg so far id following metoporlol to po bp has been ok will derease ivf id input reg source of bacteremia po metoprol and norvasc dose adjusted oper orders [place] recommneded d/w dtr Subjective Cardiovascular: Denies: chest pain, lightheadedness, palpitations Respiratory: Denies: shortness of breath Gastrointestinal/Abdominal: Denies: abdominal pain Genitourinary: Denies: burning Objective Last 24 Hour Vital Signs Date Time Temp Pulse Resp B/P (MAP) Pulse Ox O2 Delivery O2 Flow Rate FiO2 04/26/18 16:32 111 158/84 04/26/18 16:00 97.8 111 18 158/84 (108) 99 04/26/18 12:00 98.3 113 19 135/84 (101) 100 04/26/18 09:38 85 18 Room Air 21 04/26/18 09:00 Room Air 04/26/18 08:35 85 145/77 04/26/18 08:00 97.1 85 20 145/77 (99) 100 04/26/18 05:15 150/78 (102) 04/26/18 04:09 172/68 04/26/18 04:00 97.8 86 20 172/86 (114) 99 04/26/18 00:00 97.2 89 18 152/80 (104) 98 04/25/18 22:15 92 18 Room Air 21 04/25/18 21:30 158/74 (102) 04/25/18 21:00 Room Air General Appearance: no apparent distress, alert Cardiovascular: normal rate, regular rhythm Respiratory/Chest: lungs clear Abdomen: normal bowel sounds, non tender, soft Extremities: no swelling Intake and Output 04/25/18 04/26/18 18:59 06:59 Intake Total 980 ml 845 ml Output Total 600 ml 1500 ml Balance 380 ml -655 ml Intake Oral 120 ml 60 ml IV Total 860 ml 785 ml Output Urine Total 600 ml 1500 ml Laboratory Tests Test 04/26/18 08:50 White Blood Count 10.7 K/UL (4.8-10.8) Red Blood Count 2.97 M/UL (4.20-5.40) L Hemoglobin 9.3 G/DL (12.0-16.0) L Hematocrit 27.6 % (37.0-47.0) L Mean Corpuscular Volume 93 FL (80-99) Mean Corpuscular Hemoglobin 31.5 PG (27.0-31.0) H Mean Corpuscular Hemoglobin Concent 33.8 G/DL (32.0-36.0) Red Cell Distribution Width 13.4 % (11.6-14.8) Platelet Count 231 K/UL (150-450) Mean Platelet Volume 6.5 FL (6.5-10.1) Neutrophils (%) (Auto) 70.2 % (45.0-75.0) Lymphocytes (%) (Auto) 14.3 % (20.0-45.0) L Monocytes (%) (Auto) 13.8 % (1.0-10.0) H Eosinophils (%) (Auto) 0.6 % (0.0-3.0) Basophils (%) (Auto) 1.1 % (0.0-2.0) Sodium Level 136 MMOL/L (136-145) Potassium Level 4.0 MMOL/L (3.5-5.1) Chloride Level 105 MMOL/L (98-107) Carbon Dioxide Level 23 MMOL/L (21-32) Anion Gap 8 mmol/L (5-15) Blood Urea Nitrogen 21 mg/dL (7-18) H Creatinine 0.9 MG/DL (0.55-1.30) Estimat Glomerular Filtration Rate mL/min (>60) Glucose Level 108 MG/DL (74-106) H Calcium Level 8.7 MG/DL (8.5-10.1) Phosphorus Level 2.0 MG/DL (2.5-4.9) L Magnesium Level 1.2 MG/DL (1.8-2.4) L Total Bilirubin 0.4 MG/DL (0.2-1.0) Aspartate Amino Transf (AST/SGOT) 64 U/L (15-37) H Alanine Aminotransferase (ALT/SGPT) 93 U/L (12-78) H Alkaline Phosphatase 233 U/L (46-116) H Total Protein 6.4 G/DL (6.4-8.2) Albumin 2.3 G/DL (3.4-5.0) L Globulin 4.1 g/dL Albumin/Globulin Ratio 0.6 (1.0-2.7) L Hong Coley MD Apr 26, 2018 20:43
[2018-04-26] MEDS: Acyclovir 200mg Cap ORAL SCH (21:27)
[2018-04-27] VITALS: BP 132/75
[2018-04-27 04:00] VITALS: BP 173/88
[2018-04-27] MEDS: HydrALAZINE 25mg tab ORAL PRN (04:12)
[2018-04-27] MEDS: NovoLOG Insulin Flexpen SUBQ SCH ×4 (05:58→21:40)
[2018-04-27 06:48] LABS: BASOPHILS % (AUTO) 0.6 % (0.0-2.0); EOSINOPHILS % (AUTO) 0.4 % (0.0-3.0); HEMATOCRIT 24.7 % (37.0-47.0); HEMOGLOBIN 8.4 G/DL (12.0-16.0); LYMPHOCYTES % (AUTO) 8.9 % (20.0-45.0); MEAN CORPUSCULAR VOLUME 93 FL (80-99); MONOCYTES % (AUTO) 11.3 % (1.0-10.0); NEUTROPHILS % (AUTO) 78.8 % (45.0-75.0); PLATELET COUNT 193 K/UL (150-450); RED BLOOD COUNT 2.66 M/UL (4.20-5.40); RED CELL DISTRIBUTION WIDTH 13.1 % (11.6-14.8); WHITE BLOOD COUNT 8.4 K/UL (4.8-10.8)
[2018-04-27 07:04] LABS: ANION GAP 7 mmol/L (5-15); BLOOD UREA NITROGEN 26 mg/dL (7-18); CALCIUM 8.7 MG/DL (8.5-10.1); CARBON DIOXIDE 24 MMOL/L (21-32); CHLORIDE 106 MMOL/L (98-107); CREATININE 1.1 MG/DL (0.55-1.30); SODIUM 137 MMOL/L (136-145)
[2018-04-27] MEDS: Acyclovir 200mg Cap ORAL SCH ×2 (08:28→21:39)
[2018-04-27] MEDS: Nystatin Susp 500,000 units/5ml ORAL SCH ×4 (08:28→21:38)
[2018-04-27] MEDS: Dexamethasone 4mg/ml vial IVP SCH (08:28)
[2018-04-27] MEDS: Ciprofloxacin Opth Soln 2.5ml RIGHT EAR SCH ×2 (08:29→17:37)
--- NOTE | 2018-04-27 11:45 | Infectious Diseases Prog Note ---
Assessment/Plan Assessment/Plan Assessment/Plan Severe sepsis, SP- 2ry to PsA bacteremia (?source: suspect PICC line infection, no intrabomidnal acute process, CT ear stable/no abscess, ucx neg)- Probable endocarditis -04/20 Bcx 2/4 PsA (bose S); 04/21 NTD u/a wbc 5-10, nit neg, leuk +1; ucx Neg influenza sc neg -2d echo: Heavily thickened mitral valve leaflets with reduced excursion. Echogenic material noted on posterior mitral valve leaflet. Heavy mitral annulus and aortic root calcification. Bioprosthetic aortic valve replacement noted -CXR: Left basilar atelectasis. No acute process otherwise. PICC -CT abd/p: No acute process. Somewhat unusual infiltration of the retroperitoneal fat, likely related to stated clinical history of retroperitoneal radiation. No evidence of adenopathy Right hydronephrosis, left renal collecting system fullness. Probably related to a very distended bladder has no downstream obstructive lesion is demonstrated. Evidence of prior cholecystectomy. 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 No evidence of facial or tonsillar abscess CT Internal auditory canal: Complete opacification of the left mastoid air cells and middle ear cavity, consistent with chronic mastoiditis and chronic otitis media. No evidence of ossicular erosion to suggest cholesteatoma. Complete opacification of the right mastoid air cells, near complete opacification of the middle ear cavity as described. This consistent with chronic mastoiditis and chronic otitis media. No evidence of ossicular erosion to suggest cholesteatoma. No contrast enhancing lesion demonstrated CT head: Age-related volume loss. Note that ventriculomegaly is somewhat out of proportion to the degree of sulcal dilatation. This is probably due to predominant central component of cerebral volume loss, but component of normal pressure hydrocephalus not completely excludable. 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 Negative for acute intracranial bleed, mass effect, or contrast enhancing lesion. Right ethmoid sinus disease. 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 -patient will also required portacath removal and line holiday. I discussed extensively with daughter at bedside. Daughter wants to wait for her mom to get stronger; wants to take her home and come back in 2 weeks for JOSSELINE and portacath removal. -weekly CBC, CMP 04/24 SP Meropenem #4 04/22 SP IV Vancomycin #3 04/21 - SP Cefepime #1 -f/u Repeat 2 sets of Bcx (peripheral, port) -Continue Cipro ear drops #7/ -Continue prophylactic acyclovir -f/u cx -Monitor CBC/CMP, temperatures -Aspiration precautions Thank you for this consultation. Will continue to follow along with you. Discussed with RN Subjective Allergies: Coded Allergies: No Known Allergies (Unverified , 04/20/18) Subjective afebrile no leukocytosis repeat bcx Neg daughter want pt to be dsicharge and gibbs JOSSELINE and removal of portacath within 2 weeks Objective Vital Signs Last 24 Hour Vital Signs Date Time Temp Pulse Resp B/P (MAP) Pulse Ox O2 Delivery O2 Flow Rate FiO2 04/27/18 09:00 Room Air 04/27/18 08:29 99 159/91 04/27/18 07:52 97 16 Room Air 21 04/27/18 04:12 173/88 04/27/18 04:00 98.0 97 20 173/88 (116) 98 04/27/18 00:00 98.0 93 20 132/75 (94) 98 04/26/18 21:51 99 14 Room Air 21 04/26/18 21:00 Room Air 04/26/18 20:00 97.6 91 20 138/73 (94) 100 04/26/18 16:32 111 158/84 04/26/18 16:00 97.8 111 18 158/84 (108) 99 04/26/18 12:00 98.3 113 19 135/84 (101) 100 Height (Feet): 4 Height (Inches): 11.00 Weight (Pounds): 128 Objective GENERAL: The patient is cachectic. The patient has chronic illness. HEAD AND NECK: Pupils are reactive to light. Right side of face, she has Hilario palsy. R ear with minimal yellowish drainage NECK: Supple. No JVD. LUNGS: Good air entry. Poor inspiratory effort. No wheeze or rhonchi. HEART: S1 and S2. Tachycardic. ABDOMEN: Soft, nondistended, and nontender. Positive bowel sounds. EXTREMITIES: No cyanosis, clubbing, or edema. Right upper extremity PAS port was noted. Laboratory Tests Test 04/27/18 05:50 White Blood Count 8.4 K/UL (4.8-10.8) Red Blood Count 2.66 M/UL (4.20-5.40) L Hemoglobin 8.4 G/DL (12.0-16.0) L Hematocrit 24.7 % (37.0-47.0) L Mean Corpuscular Volume 93 FL (80-99) Mean Corpuscular Hemoglobin 31.5 PG (27.0-31.0) H Mean Corpuscular Hemoglobin Concent 34.0 G/DL (32.0-36.0) Red Cell Distribution Width 13.1 % (11.6-14.8) Platelet Count 193 K/UL (150-450) Mean Platelet Volume 6.7 FL (6.5-10.1) Neutrophils (%) (Auto) 78.8 % (45.0-75.0) H Lymphocytes (%) (Auto) 8.9 % (20.0-45.0) L Monocytes (%) (Auto) 11.3 % (1.0-10.0) H Eosinophils (%) (Auto) 0.4 % (0.0-3.0) Basophils (%) (Auto) 0.6 % (0.0-2.0) Sodium Level 137 MMOL/L (136-145) Potassium Level 4.0 MMOL/L (3.5-5.1) Chloride Level 106 MMOL/L (98-107) Carbon Dioxide Level 24 MMOL/L (21-32) Anion Gap 7 mmol/L (5-15) Blood Urea Nitrogen 26 mg/dL (7-18) H Creatinine 1.1 MG/DL (0.55-1.30) Estimat Glomerular Filtration Rate mL/min (>60) Glucose Level 141 MG/DL (74-106) H Calcium Level 8.7 MG/DL (8.5-10.1) Current Medications Medications (Trade) Dose Ordered Sig/Ibrahima Route PRN Reason Start Time Stop Time Status Last Admin Dose Admin Acetaminophen (Tylenol) 650 mg Q4H PRN ORAL fever (temp>100.5 F) 04/25/18 07:00 05/20/18 18:59 04/27/18 04:21 Acyclovir (Zovirax) 400 mg Q12HR ORAL 04/26/18 21:00 05/26/18 20:59 04/27/18 08:28 Albuterol/ Ipratropium (Albuterol/ Ipratropium) 3 ml Q4H PRN HHN Shortness of Breath 04/25/18 07:00 04/28/18 10:59 Amlodipine Besylate (Norvasc) 10 mg DAILY ORAL 04/26/18 09:00 05/26/18 08:59 04/27/18 08:29 Cefepime HCl 2 gm/ Dextrose 55 ml @ 110 mls/hr Q24H IVPB 04/26/18 16:00 05/03/18 15:59 04/26/18 16:33 Ciprofloxacin (Ciloxan Opth Soln) 2 drop BID RIGHT EAR 04/25/18 09:00 04/28/18 17:59 04/27/18 08:29 Dexamethasone Sodium Phosphate (Decadron 4mg/ml vial) 4 mg DAILY IVP 04/27/18 09:00 05/21/18 20:59 04/27/18 08:28 Dextrose (Dextrose 50%) 25 ml Q30M PRN IV Hypoglycemia 04/25/18 06:45 05/20/18 19:00 Dextrose (Dextrose 50%) 50 ml Q30M PRN IV hypoglycemia 04/25/18 06:45 05/20/18 19:14 Hydralazine HCl (Apresoline) 25 mg Q8H PRN ORAL For High Blood Pressure 04/25/18 11:00 05/20/18 18:59 04/27/18 04:12 Insulin Aspart (NovoLOG) BEFORE MEALS AND HS SUBQ 04/25/18 11:30 05/25/18 11:29 04/26/18 21:32 Levofloxacin (Levaquin) 750 mg EVERY OTHER DAY ORAL 04/28/18 09:00 05/05/18 08:59 Metoprolol Tartrate (Lopressor) 25 mg Q8H PRN ORAL heart rate more than 110 04/25/18 13:00 05/25/18 12:59 04/26/18 16:32 Morphine Sulfate (Morphine Sulfate) 2 mg Q4H PRN IVP Moderate Pain (Pain Scale 4-6) 04/25/18 07:00 04/27/18 18:59 Nitroglycerin (Ntg) 0.4 mg Q5M PRN SL Prn Chest Pain 04/25/18 06:35 05/20/18 18:59 Nystatin (Nystatin) 5 ml QID ORAL 04/26/18 18:00 05/03/18 17:59 04/27/18 08:28 Ondansetron HCl (Zofran) 4 mg Q6H PRN IVP Nausea & Vomiting 04/25/18 07:00 05/20/18 18:59 Polyethylene Glycol (Miralax) 17 gm DAILYPRN PRN ORAL Constipation 04/25/18 19:00 05/20/18 18:59 Risperidone (RisperDAL) 1 mg BEDTIME PRN ORAL agitation 04/25/18 21:00 05/21/18 13:44 Temazepam (Restoril) 15 mg HSPRN PRN ORAL Insomnia 04/25/18 19:00 04/27/18 18:59 Lakesha Ratliff M.D. Apr 27, 2018 11:45
[2018-04-27 12:00] VITALS: BP 129/60
--- NOTE | 2018-04-27 12:40 | Pulmonology Progress Note ---
Assessment/Plan Problems: (1) Septic shock (2) Non-Hodgkin lymphoma (3) History of hypertension (4) CAD (coronary artery disease) (5) Diabetes mellitus Assessment/Plan Ojeda sensitive pseudomonas continue abx O[place]eda CT scan ordered to look for the source of Abx sliding scale swallow evaluation med/surg d/w daughter at the bed site pt can go home to finish the course of abx ID suggesting that the Portocath needs to be removed. Subjective ROS Limited/Unobtainable: No Constitutional: Reports: no symptoms Respiratory: Reports: no symptoms Allergies: Coded Allergies: No Known Allergies (Unverified , 04/20/18) Objective Last 24 Hour Vital Signs Date Time Temp Pulse Resp B/P (MAP) Pulse Ox O2 Delivery O2 Flow Rate FiO2 04/27/18 12:00 97.7 100 20 129/60 (83) 99 04/27/18 09:00 Room Air 04/27/18 08:29 99 159/91 04/27/18 07:52 97 16 Room Air 21 04/27/18 04:12 173/88 04/27/18 04:00 98.0 97 20 173/88 (116) 98 04/27/18 00:00 98.0 93 20 132/75 (94) 98 04/26/18 21:51 99 14 Room Air 21 04/26/18 21:00 Room Air 04/26/18 20:00 97.6 91 20 138/73 (94) 100 04/26/18 16:32 111 158/84 04/26/18 16:00 97.8 111 18 158/84 (108) 99 Intake and Output 04/26/18 04/27/18 19:00 07:00 Intake Total 1155 ml 60 ml Balance 1155 ml 60 ml Intake Oral 840 ml 60 ml IV Total 315 ml # Voids 4 3 Objective General Appearance: cachetic HEENT: normocephalic, atraumatic Respiratory/Chest: chest wall non-tender, lungs clear Cardiovascular: normal peripheral pulses, normal rate Abdomen: normal bowel sounds, soft, non tender Genitourinary: normal external genitalia Extremities: no clubbing Skin: no lesions Neurologic/Psychiatric: normal mood/affect Musculoskeletal: normal muscle bulk Laboratory Tests 04/27/18 05:50: White Blood Count 8.4, Red Blood Count 2.66L, Hemoglobin 8.4L, Hematocrit 24.7L , Mean Corpuscular Volume 93, Mean Corpuscular Hemoglobin 31.5H, Mean Corpuscular Hemoglobin Concent 34.0, Red Cell Distribution Width 13.1, Platelet Count 193, Mean Platelet Volume 6.7, Neutrophils (%) (Auto) 78.8H, Lymphocytes ( %) (Auto) 8.9L, Monocytes (%) (Auto) 11.3H, Eosinophils (%) (Auto) 0.4, Basophils (%) (Auto) 0.6, Sodium Level 137, Potassium Level 4.0, Chloride Level 106, Carbon Dioxide Level 24, Anion Gap 7, Blood Urea Nitrogen 26H, Creatinine 1.1, Estimat Glomerular Filtration Rate , Glucose Level 141H, Calcium Level 8.7 Current Medications Medications (Trade) Dose Ordered Sig/Ibrahima Route PRN Reason Start Time Stop Time Status Last Admin Dose Admin Acetaminophen (Tylenol) 650 mg Q4H PRN ORAL fever (temp>100.5 F) 04/25/18 07:00 05/20/18 18:59 04/27/18 04:21 Acyclovir (Zovirax) 400 mg Q12HR ORAL 04/26/18 21:00 05/26/18 20:59 04/27/18 08:28 Albuterol/ Ipratropium (Albuterol/ Ipratropium) 3 ml Q4H PRN HHN Shortness of Breath 04/25/18 07:00 04/28/18 10:59 Amlodipine Besylate (Norvasc) 10 mg DAILY ORAL 04/26/18 09:00 05/26/18 08:59 04/27/18 08:29 Cefepime HCl 2 gm/ Dextrose 55 ml @ 110 mls/hr Q24H IVPB 04/26/18 16:00 05/03/18 15:59 04/26/18 16:33 Ciprofloxacin (Ciloxan Opth Soln) 2 drop BID RIGHT EAR 04/25/18 09:00 04/28/18 17:59 04/27/18 08:29 Dexamethasone Sodium Phosphate (Decadron 4mg/ml vial) 4 mg DAILY IVP 04/27/18 09:00 05/21/18 20:59 04/27/18 08:28 Dextrose (Dextrose 50%) 25 ml Q30M PRN IV Hypoglycemia 04/25/18 06:45 05/20/18 19:00 Dextrose (Dextrose 50%) 50 ml Q30M PRN IV hypoglycemia 04/25/18 06:45 05/20/18 19:14 Hydralazine HCl (Apresoline) 25 mg Q8H PRN ORAL For High Blood Pressure 04/25/18 11:00 05/20/18 18:59 04/27/18 04:12 Insulin Aspart (NovoLOG) BEFORE MEALS AND HS SUBQ 04/25/18 11:30 05/25/18 11:29 04/26/18 21:32 Levofloxacin (Levaquin) 750 mg EVERY OTHER DAY ORAL 04/28/18 09:00 05/05/18 08:59 Metoprolol Tartrate (Lopressor) 25 mg Q8H PRN ORAL heart rate more than 110 04/25/18 13:00 05/25/18 12:59 04/26/18 16:32 Morphine Sulfate (Morphine Sulfate) 2 mg Q4H PRN IVP Moderate Pain (Pain Scale 4-6) 04/25/18 07:00 04/27/18 18:59 Nitroglycerin (Ntg) 0.4 mg Q5M PRN SL Prn Chest Pain 04/25/18 06:35 05/20/18 18:59 Nystatin (Nystatin) 5 ml QID ORAL 04/26/18 18:00 05/03/18 17:59 04/27/18 08:28 Ondansetron HCl (Zofran) 4 mg Q6H PRN IVP Nausea & Vomiting 04/25/18 07:00 05/20/18 18:59 Polyethylene Glycol (Miralax) 17 gm DAILYPRN PRN ORAL Constipation 04/25/18 19:00 05/20/18 18:59 Risperidone (RisperDAL) 1 mg BEDTIME PRN ORAL agitation 04/25/18 21:00 05/21/18 13:44 Temazepam (Restoril) 15 mg HSPRN PRN ORAL Insomnia 04/25/18 19:00 04/27/18 18:59 Ge Negron MD Apr 27, 2018 12:40
--- NOTE | 2018-04-27 13:04 | General Progress Note ---
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 Status: stable Assessment/Plan risperdal prn raise the head Subjective Neurologic/Psychiatric: Reports: anxiety Allergies: Coded Allergies: No Known Allergies (Unverified , 04/20/18) Subjective the pt is stable at baseline the pt is somewhat confused. unchanged Objective Last 24 Hour Vital Signs Date Time Temp Pulse Resp B/P (MAP) Pulse Ox O2 Delivery O2 Flow Rate FiO2 04/27/18 12:00 97.7 100 20 129/60 (83) 99 04/27/18 09:00 Room Air 04/27/18 08:29 99 159/91 04/27/18 07:52 97 16 Room Air 21 04/27/18 04:12 173/88 04/27/18 04:00 98.0 97 20 173/88 (116) 98 04/27/18 00:00 98.0 93 20 132/75 (94) 98 04/26/18 21:51 99 14 Room Air 21 04/26/18 21:00 Room Air 04/26/18 20:00 97.6 91 20 138/73 (94) 100 04/26/18 16:32 111 158/84 04/26/18 16:00 97.8 111 18 158/84 (108) 99 Intake and Output 04/26/18 04/27/18 19:00 07:00 Intake Total 1155 ml 60 ml Balance 1155 ml 60 ml Intake Oral 840 ml 60 ml IV Total 315 ml # Voids 4 3 Laboratory Tests 04/27/18 05:50: White Blood Count 8.4, Red Blood Count 2.66L, Hemoglobin 8.4L, Hematocrit 24.7L , Mean Corpuscular Volume 93, Mean Corpuscular Hemoglobin 31.5H, Mean Corpuscular Hemoglobin Concent 34.0, Red Cell Distribution Width 13.1, Platelet Count 193, Mean Platelet Volume 6.7, Neutrophils (%) (Auto) 78.8H, Lymphocytes ( %) (Auto) 8.9L, Monocytes (%) (Auto) 11.3H, Eosinophils (%) (Auto) 0.4, Basophils (%) (Auto) 0.6, Sodium Level 137, Potassium Level 4.0, Chloride Level 106, Carbon Dioxide Level 24, Anion Gap 7, Blood Urea Nitrogen 26H, Creatinine 1.1, Estimat Glomerular Filtration Rate , Glucose Level 141H, Calcium Level 8.7 Height (Feet): 4 Height (Inches): 11.00 Weight (Pounds): 128 General Appearance: no apparent distress, moderate distress Zev Thompson MD Apr 27, 2018 13:04
--- NOTE | 2018-04-27 13:35 | Internal Med Progress Note ---
Subjective Date of Service: Apr 27, 2018 Physician Name Her,Raad Attending Physician Jaxon Chow MD Current Medications Medications (Trade) Dose Ordered Sig/Ibrahima Route PRN Reason Start Time Stop Time Status Last Admin Dose Admin Acetaminophen (Tylenol) 650 mg Q4H PRN ORAL fever (temp>100.5 F) 04/25/18 07:00 05/20/18 18:59 04/27/18 04:21 Acyclovir (Zovirax) 400 mg Q12HR ORAL 04/26/18 21:00 05/26/18 20:59 04/27/18 08:28 Albuterol/ Ipratropium (Albuterol/ Ipratropium) 3 ml Q4H PRN HHN Shortness of Breath 04/25/18 07:00 04/28/18 10:59 Amlodipine Besylate (Norvasc) 10 mg DAILY ORAL 04/26/18 09:00 05/26/18 08:59 04/27/18 08:29 Cefepime HCl 2 gm/ Dextrose 55 ml @ 110 mls/hr Q24H IVPB 04/26/18 16:00 05/03/18 15:59 04/26/18 16:33 Ciprofloxacin (Ciloxan Opth Soln) 2 drop BID RIGHT EAR 04/25/18 09:00 04/28/18 17:59 04/27/18 08:29 Dexamethasone Sodium Phosphate (Decadron 4mg/ml vial) 4 mg DAILY IVP 04/27/18 09:00 05/21/18 20:59 04/27/18 08:28 Dextrose (Dextrose 50%) 25 ml Q30M PRN IV Hypoglycemia 04/25/18 06:45 05/20/18 19:00 Dextrose (Dextrose 50%) 50 ml Q30M PRN IV hypoglycemia 04/25/18 06:45 05/20/18 19:14 Hydralazine HCl (Apresoline) 25 mg Q8H PRN ORAL For High Blood Pressure 04/25/18 11:00 05/20/18 18:59 04/27/18 04:12 Insulin Aspart (NovoLOG) BEFORE MEALS AND HS SUBQ 04/25/18 11:30 05/25/18 11:29 04/26/18 21:32 Levofloxacin (Levaquin) 750 mg EVERY OTHER DAY ORAL 04/28/18 09:00 05/05/18 08:59 Metoprolol Tartrate (Lopressor) 25 mg Q8H PRN ORAL heart rate more than 110 04/25/18 13:00 05/25/18 12:59 04/26/18 16:32 Morphine Sulfate (Morphine Sulfate) 2 mg Q4H PRN IVP Moderate Pain (Pain Scale 4-6) 04/25/18 07:00 04/27/18 18:59 Nitroglycerin (Ntg) 0.4 mg Q5M PRN SL Prn Chest Pain 04/25/18 06:35 05/20/18 18:59 Nystatin (Nystatin) 5 ml QID ORAL 04/26/18 18:00 05/03/18 17:59 04/27/18 08:28 Ondansetron HCl (Zofran) 4 mg Q6H PRN IVP Nausea & Vomiting 04/25/18 07:00 05/20/18 18:59 Polyethylene Glycol (Miralax) 17 gm DAILYPRN PRN ORAL Constipation 04/25/18 19:00 05/20/18 18:59 Risperidone (RisperDAL) 1 mg BEDTIME PRN ORAL agitation 04/25/18 21:00 05/21/18 13:44 Temazepam (Restoril) 15 mg HSPRN PRN ORAL Insomnia 04/25/18 19:00 04/27/18 18:59 Allergies: Coded Allergies: No Known Allergies (Unverified , 04/20/18) ROS Limited/Unobtainable: No Constitutional: Reports: no symptoms HEENT: Reports: no symptoms Cardiovascular: Reports: no symptoms Respiratory: Reports: no symptoms Gastrointestinal/Abdominal: Reports: no symptoms Genitourinary: Reports: no symptoms Neurologic/Psychiatric: Reports: no symptoms Subjective 83 YO F with Non Hodgkins Lymphoma admitted with fever and dehydration. Now sepsis. Cover for Int Jemal-Dr Chow Objective Last Vital Signs Date Time Temp Pulse Resp B/P (MAP) Pulse Ox O2 Delivery O2 Flow Rate FiO2 04/27/18 12:00 97.7 100 20 129/60 (83) 99 04/27/18 09:00 Room Air 04/27/18 07:52 21 04/20/18 22:47 2.0 Laboratory Tests Test 04/27/18 05:50 White Blood Count 8.4 K/UL (4.8-10.8) Red Blood Count 2.66 M/UL (4.20-5.40) L Hemoglobin 8.4 G/DL (12.0-16.0) L Hematocrit 24.7 % (37.0-47.0) L Mean Corpuscular Volume 93 FL (80-99) Mean Corpuscular Hemoglobin 31.5 PG (27.0-31.0) H Mean Corpuscular Hemoglobin Concent 34.0 G/DL (32.0-36.0) Red Cell Distribution Width 13.1 % (11.6-14.8) Platelet Count 193 K/UL (150-450) Mean Platelet Volume 6.7 FL (6.5-10.1) Neutrophils (%) (Auto) 78.8 % (45.0-75.0) H Lymphocytes (%) (Auto) 8.9 % (20.0-45.0) L Monocytes (%) (Auto) 11.3 % (1.0-10.0) H Eosinophils (%) (Auto) 0.4 % (0.0-3.0) Basophils (%) (Auto) 0.6 % (0.0-2.0) Sodium Level 137 MMOL/L (136-145) Potassium Level 4.0 MMOL/L (3.5-5.1) Chloride Level 106 MMOL/L (98-107) Carbon Dioxide Level 24 MMOL/L (21-32) Anion Gap 7 mmol/L (5-15) Blood Urea Nitrogen 26 mg/dL (7-18) H Creatinine 1.1 MG/DL (0.55-1.30) Estimat Glomerular Filtration Rate mL/min (>60) Glucose Level 141 MG/DL (74-106) H Calcium Level 8.7 MG/DL (8.5-10.1) Intake and Output 04/26/18 04/27/18 19:00 07:00 Intake Total 1155 ml 60 ml Balance 1155 ml 60 ml Intake Oral 840 ml 60 ml IV Total 315 ml # Voids 4 3 Objective Objective GENERAL: awake, responsive, Cachectic. HEAD AND NECK: PERRLA, EOMI, Right side of face Hilario palsy. NECK: Supple. No JVD. LUNGS: decrease air entry at bases. Fair inspiratory effort. No wheeze or rhonchi. HEART: S1 and S2 RR, No Murmur. ABDOMEN: Soft, nondistended, and nontender. Positive bowel sounds. EXTREMITIES: No cyanosis, clubbing, or edema. Right upper extremity PAS port, NEUROLOGIC: Cranial nerves II through XII grossly intact. Moving all extremities slowly. Assessment/Plan Assessment/Plan Assessment/Plan Assessment/Plan ASSESSMENT: 1. PSEUDOMONAS AERUGINOSA bacteremia / Sepsis. 2. Dehydration. 3. Tachycardia. 4. Non-Hodgkin lymphoma. 5. Diabetes type 2. 6. Hypertension. 7. Anemia. 8. History of right-sided Hilario palsy. PLAN: In telemetry. F/U with laboratory and culture. Antibiotic: Levaquin Discussion with the daughter extensively at bedside. Code status, Full Code. DVT prophylaxis. Heparin, subcu. Follow up with Dr. Negron, Pulmonary, Critical Care, Dr. Coley , cardiology , and Dr. Ratliff Infectious Disease IVF Monitor BS On Metoprol to IV Hold transesophageal echocardiogram for now-see ID note. Needs 6 week empiric cefepime therapy for possible endocarditis Raad Her MD Apr 27, 2018 13:35
[2018-04-27] MEDS ORDERED: Tubing IV Secondary IV ONE (15:07)
[2018-04-27] MEDS ORDERED: NS 275ml ONE (15:07)
[2018-04-27 15:54] VITALS: BP 132/68
[2018-04-27] MEDS: Cefepime HCl 2 GM in D5W 55 ML IVPB SCH (16:43)
[2018-04-27 20:00] VITALS: BP 145/78
[2018-04-28] VITALS: BP 140/82
[2018-04-28 04:00] VITALS: BP 112/66
[2018-04-28] MEDS: NovoLOG Insulin Flexpen SUBQ SCH ×3 (06:30→16:30)
[2018-04-28 06:54] LABS: ANION GAP 8 mmol/L (5-15); BLOOD UREA NITROGEN 27 mg/dL (7-18); CARBON DIOXIDE 26 MMOL/L (21-32); CHLORIDE 106 MMOL/L (98-107); CREATININE 0.9 MG/DL (0.55-1.30); POTASSIUM 3.5 MMOL/L (3.5-5.1); SODIUM 140 MMOL/L (136-145)
[2018-04-28 07:21] LABS: EOSINOPHILS % (AUTO) 0.5 % (0.0-3.0); HEMATOCRIT 25.6 % (37.0-47.0); HEMOGLOBIN 8.6 G/DL (12.0-16.0); LYMPHOCYTES % (AUTO) 11.1 % (20.0-45.0); MEAN CORPUSCULAR VOLUME 93 FL (80-99); MONOCYTES % (AUTO) 9.3 % (1.0-10.0); NEUTROPHILS % (AUTO) 78.1 % (45.0-75.0); PLATELET COUNT 193 K/UL (150-450); RED BLOOD COUNT 2.75 M/UL (4.20-5.40); RED CELL DISTRIBUTION WIDTH 13.3 % (11.6-14.8); WHITE BLOOD COUNT 8.3 K/UL (4.8-10.8)
[2018-04-28 08:00] VITALS: BP 160/78
[2018-04-28] MEDS: Acyclovir 200mg Cap ORAL SCH (08:20)
[2018-04-28] MEDS: Dexamethasone 4mg/ml vial IVP SCH (08:21)
[2018-04-28] MEDS: Ciprofloxacin Opth Soln 2.5ml RIGHT EAR SCH (08:21)
[2018-04-28] MEDS: Nystatin Susp 500,000 units/5ml ORAL SCH ×3 (08:21→17:56)
[2018-04-28 12:00] VITALS: BP 133/73
--- NOTE | 2018-04-28 12:30 | Internal Med Progress Note ---
Subjective Physician Name Jaxon Chow Attending Physician Jaxon Chow MD Current Medications Medications (Trade) Dose Ordered Sig/Ibrahima Route PRN Reason Start Time Stop Time Status Last Admin Dose Admin Acetaminophen (Tylenol) 650 mg Q4H PRN ORAL fever (temp>100.5 F) 04/25/18 07:00 05/20/18 18:59 04/27/18 04:21 Acyclovir (Zovirax) 400 mg Q12HR ORAL 04/26/18 21:00 05/26/18 20:59 04/28/18 08:20 Amlodipine Besylate (Norvasc) 10 mg DAILY ORAL 04/26/18 09:00 05/26/18 08:59 04/28/18 08:20 Cefepime HCl 2 gm/ Dextrose 55 ml @ 110 mls/hr Q24H IVPB 04/26/18 16:00 05/03/18 15:59 04/27/18 16:43 Ciprofloxacin (Ciloxan Opth Soln) 2 drop BID RIGHT EAR 04/25/18 09:00 04/28/18 17:59 04/28/18 08:21 Dexamethasone Sodium Phosphate (Decadron 4mg/ml vial) 4 mg DAILY IVP 04/27/18 09:00 05/21/18 20:59 04/28/18 08:21 Dextrose (Dextrose 50%) 25 ml Q30M PRN IV Hypoglycemia 04/25/18 06:45 05/20/18 19:00 Dextrose (Dextrose 50%) 50 ml Q30M PRN IV hypoglycemia 04/25/18 06:45 05/20/18 19:14 Hydralazine HCl (Apresoline) 25 mg Q8H PRN ORAL For High Blood Pressure 04/25/18 11:00 05/20/18 18:59 04/27/18 04:12 Insulin Aspart (NovoLOG) BEFORE MEALS AND HS SUBQ 04/25/18 11:30 05/25/18 11:29 04/27/18 21:40 Levofloxacin (Levaquin) 750 mg EVERY OTHER DAY ORAL 04/28/18 09:00 05/05/18 08:59 04/28/18 08:21 Metoprolol Tartrate (Lopressor) 25 mg Q8H PRN ORAL heart rate more than 110 04/25/18 13:00 05/25/18 12:59 04/26/18 16:32 Nitroglycerin (Ntg) 0.4 mg Q5M PRN SL Prn Chest Pain 04/25/18 06:35 05/20/18 18:59 Nystatin (Nystatin) 5 ml QID ORAL 04/26/18 18:00 05/03/18 17:59 04/28/18 08:21 Ondansetron HCl (Zofran) 4 mg Q6H PRN IVP Nausea & Vomiting 04/25/18 07:00 05/20/18 18:59 Polyethylene Glycol (Miralax) 17 gm DAILYPRN PRN ORAL Constipation 04/25/18 19:00 05/20/18 18:59 Risperidone (RisperDAL) 1 mg BEDTIME PRN ORAL agitation 04/25/18 21:00 05/21/18 13:44 Allergies: Coded Allergies: No Known Allergies (Unverified , 04/20/18) Subjective Responsive, awake, alert, talking, Sons and daughter at bedside Objective Last Vital Signs Date Time Temp Pulse Resp B/P (MAP) Pulse Ox O2 Delivery O2 Flow Rate FiO2 04/28/18 09:00 Room Air 04/28/18 08:20 94 112/66 04/28/18 08:00 98.8 18 98 04/27/18 07:52 21 04/20/18 22:47 2.0 Laboratory Tests Test 04/28/18 05:00 White Blood Count 8.3 K/UL (4.8-10.8) Red Blood Count 2.75 M/UL (4.20-5.40) L Hemoglobin 8.6 G/DL (12.0-16.0) L Hematocrit 25.6 % (37.0-47.0) L Mean Corpuscular Volume 93 FL (80-99) Mean Corpuscular Hemoglobin 31.4 PG (27.0-31.0) H Mean Corpuscular Hemoglobin Concent 33.7 G/DL (32.0-36.0) Red Cell Distribution Width 13.3 % (11.6-14.8) Platelet Count 193 K/UL (150-450) Mean Platelet Volume 7.0 FL (6.5-10.1) Neutrophils (%) (Auto) 78.1 % (45.0-75.0) H Lymphocytes (%) (Auto) 11.1 % (20.0-45.0) L Monocytes (%) (Auto) 9.3 % (1.0-10.0) Eosinophils (%) (Auto) 0.5 % (0.0-3.0) Basophils (%) (Auto) 1.0 % (0.0-2.0) Sodium Level 140 MMOL/L (136-145) Potassium Level 3.5 MMOL/L (3.5-5.1) Chloride Level 106 MMOL/L (98-107) Carbon Dioxide Level 26 MMOL/L (21-32) Anion Gap 8 mmol/L (5-15) Blood Urea Nitrogen 27 mg/dL (7-18) H Creatinine 0.9 MG/DL (0.55-1.30) Estimat Glomerular Filtration Rate mL/min (>60) Glucose Level 87 MG/DL (74-106) Calcium Level 9.0 MG/DL (8.5-10.1) Intake and Output 04/27/18 04/28/18 19:00 07:00 Intake Total 415 ml Output Total 800 ml Balance -385 ml Intake Oral 360 ml IV Total 55 ml Output Urine Total 800 ml # Voids 3 Objective GENERAL: awake, responsive,awake. HEAD AND NECK: PERRLA, EOMI, Right side of face Hilario palsy. NECK: Supple. No JVD. LUNGS: decrease air entry at bases. Fair inspiratory effort. No wheeze or rhonchi. HEART: S1 and S2 RR, No Murmur. ABDOMEN: Soft, nondistended, and nontender. Positive bowel sounds. EXTREMITIES: No cyanosis, clubbing, or edema. Right upper extremity PAS port, NEUROLOGIC: Cranial nerves II through XII grossly intact. Moving all extremities slowly. Assessment/Plan Assessment/Plan ASSESSMENT: 1. PSEUDOMONAS AERUGINOSA bacteremia / Sepsis most likely line sepsis. 2. Dehydration. 3. Tachycardia. 4. Non-Hodgkin lymphoma. 5. Diabetes type 2. 6. Hypertension. 7. Anemia. 8. History of right-sided Hilario palsy. PLAN: In telemetry. F/U with laboratory and culture. Antibiotic: Cefepime and Levaquin Discussion with the daughter extensively at bedside. Code status, Full Code. DVT prophylaxis. Heparin, subcu. Follow up with Dr. Negron, Pulmonary, Critical Care, Dr. Coley , cardiology , and Dr. Ratliff Infectious Disease Monitor BS On Metoprol DC planning home with home health and IV Abx. Channing Elizabeth Payam MD Apr 28, 2018 12:30
[2018-04-28] MEDS: Cefepime HCl 2 GM in D5W 55 ML IVPB SCH (15:33)
[2018-04-28 15:41] VITALS: BP 133/77
--- NOTE | 2018-04-28 16:16 | Infectious Diseases Prog Note ---
Assessment/Plan Assessment/Plan Assessment/Plan Severe sepsis, SP- 2ry to PsA bacteremia (?source: suspect PICC line infection, no intrabomidnal acute process, CT ear stable/no abscess, ucx neg)- Probable endocarditis -04/20 Bcx 2/4 PsA (bose S); 04/21 NTD u/a wbc 5-10, nit neg, leuk +1; ucx Neg influenza sc neg -2d echo: Heavily thickened mitral valve leaflets with reduced excursion. Echogenic material noted on posterior mitral valve leaflet. Heavy mitral annulus and aortic root calcification. Bioprosthetic aortic valve replacement noted -CXR: Left basilar atelectasis. No acute process otherwise. PICC -CT abd/p: No acute process. Somewhat unusual infiltration of the retroperitoneal fat, likely related to stated clinical history of retroperitoneal radiation. No evidence of adenopathy Right hydronephrosis, left renal collecting system fullness. Probably related to a very distended bladder has no downstream obstructive lesion is demonstrated. Evidence of prior cholecystectomy. 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 No evidence of facial or tonsillar abscess CT Internal auditory canal: Complete opacification of the left mastoid air cells and middle ear cavity, consistent with chronic mastoiditis and chronic otitis media. No evidence of ossicular erosion to suggest cholesteatoma. Complete opacification of the right mastoid air cells, near complete opacification of the middle ear cavity as described. This consistent with chronic mastoiditis and chronic otitis media. No evidence of ossicular erosion to suggest cholesteatoma. No contrast enhancing lesion demonstrated CT head: Age-related volume loss. Note that ventriculomegaly is somewhat out of proportion to the degree of sulcal dilatation. This is probably due to predominant central component of cerebral volume loss, but component of normal pressure hydrocephalus not completely excludable. 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 Negative for acute intracranial bleed, mass effect, or contrast enhancing lesion. Right ethmoid sinus disease. 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 -patient will also required portacath removal and line holiday. I discussed extensively with daughter at bedside. Daughter wants to wait for her mom to get stronger; wants to take her home and come back in 2 weeks for JOSSELINE and portacath removal. -weekly CBC, CMP 04/24 SP Meropenem #4 04/22 SP IV Vancomycin #3 04/21 - SP Cefepime #1 -f/u Repeat 2 sets of Bcx (peripheral, port) -Continue Cipro ear drops #/ -Continue prophylactic acyclovir -f/u cx -Monitor CBC/CMP, temperatures -Aspiration precautions Thank you for this consultation. Will continue to follow along with you. Discussed with RN Subjective Allergies: Coded Allergies: No Known Allergies (Unverified , 04/20/18) Subjective afebrile no leukocytosis discharge planing Objective Vital Signs Last 24 Hour Vital Signs Date Time Temp Pulse Resp B/P (MAP) Pulse Ox O2 Delivery O2 Flow Rate FiO2 04/28/18 15:41 97.1 100 18 133/77 (95) 98 04/28/18 12:00 98.9 112 19 133/73 (93) 98 04/28/18 09:00 Room Air 04/28/18 08:20 94 112/66 04/28/18 08:00 98.8 100 18 160/78 (105) 98 04/28/18 04:00 97.3 94 20 112/66 (81) 97 04/28/18 00:00 97.4 93 20 140/82 (101) 98 04/27/18 21:00 Room Air 04/27/18 20:00 97.2 87 20 145/78 (100) 98 Height (Feet): 4 Height (Inches): 11.00 Weight (Pounds): 128 Objective GENERAL: The patient is cachectic. The patient has chronic illness. HEAD AND NECK: Pupils are reactive to light. Right side of face, she has Hilario palsy. R ear with minimal yellowish drainage NECK: Supple. No JVD. LUNGS: Good air entry. Poor inspiratory effort. No wheeze or rhonchi. HEART: S1 and S2. Tachycardic. ABDOMEN: Soft, nondistended, and nontender. Positive bowel sounds. EXTREMITIES: No cyanosis, clubbing, or edema. Right upper extremity PAS port was noted. Laboratory Tests Test 04/28/18 05:00 White Blood Count 8.3 K/UL (4.8-10.8) Red Blood Count 2.75 M/UL (4.20-5.40) L Hemoglobin 8.6 G/DL (12.0-16.0) L Hematocrit 25.6 % (37.0-47.0) L Mean Corpuscular Volume 93 FL (80-99) Mean Corpuscular Hemoglobin 31.4 PG (27.0-31.0) H Mean Corpuscular Hemoglobin Concent 33.7 G/DL (32.0-36.0) Red Cell Distribution Width 13.3 % (11.6-14.8) Platelet Count 193 K/UL (150-450) Mean Platelet Volume 7.0 FL (6.5-10.1) Neutrophils (%) (Auto) 78.1 % (45.0-75.0) H Lymphocytes (%) (Auto) 11.1 % (20.0-45.0) L Monocytes (%) (Auto) 9.3 % (1.0-10.0) Eosinophils (%) (Auto) 0.5 % (0.0-3.0) Basophils (%) (Auto) 1.0 % (0.0-2.0) Sodium Level 140 MMOL/L (136-145) Potassium Level 3.5 MMOL/L (3.5-5.1) Chloride Level 106 MMOL/L (98-107) Carbon Dioxide Level 26 MMOL/L (21-32) Anion Gap 8 mmol/L (5-15) Blood Urea Nitrogen 27 mg/dL (7-18) H Creatinine 0.9 MG/DL (0.55-1.30) Estimat Glomerular Filtration Rate mL/min (>60) Glucose Level 87 MG/DL (74-106) Calcium Level 9.0 MG/DL (8.5-10.1) Current Medications Medications (Trade) Dose Ordered Sig/Ibrahima Route PRN Reason Start Time Stop Time Status Last Admin Dose Admin Acetaminophen (Tylenol) 650 mg Q4H PRN ORAL fever (temp>100.5 F) 04/25/18 07:00 05/20/18 18:59 04/27/18 04:21 Acyclovir (Zovirax) 400 mg Q12HR ORAL 04/26/18 21:00 05/26/18 20:59 04/28/18 08:20 Amlodipine Besylate (Norvasc) 10 mg DAILY ORAL 04/26/18 09:00 05/26/18 08:59 04/28/18 08:20 Cefepime HCl 2 gm/ Dextrose 55 ml @ 110 mls/hr Q24H IVPB 04/26/18 16:00 05/03/18 15:59 04/28/18 15:33 Ciprofloxacin (Ciloxan Opth Soln) 2 drop BID RIGHT EAR 04/25/18 09:00 04/28/18 17:59 04/28/18 08:21 Dextrose (Dextrose 50%) 25 ml Q30M PRN IV Hypoglycemia 04/25/18 06:45 05/20/18 19:00 Dextrose (Dextrose 50%) 50 ml Q30M PRN IV hypoglycemia 04/25/18 06:45 05/20/18 19:14 Hydralazine HCl (Apresoline) 25 mg Q8H PRN ORAL For High Blood Pressure 04/25/18 11:00 05/20/18 18:59 04/27/18 04:12 Insulin Aspart (NovoLOG) BEFORE MEALS AND HS SUBQ 04/25/18 11:30 05/25/18 11:29 04/28/18 12:57 Levofloxacin (Levaquin) 750 mg EVERY OTHER DAY ORAL 04/28/18 09:00 05/05/18 08:59 04/28/18 08:21 Metoprolol Tartrate (Lopressor) 25 mg Q8H PRN ORAL heart rate more than 110 04/25/18 13:00 05/25/18 12:59 04/26/18 16:32 Nitroglycerin (Ntg) 0.4 mg Q5M PRN SL Prn Chest Pain 04/25/18 06:35 05/20/18 18:59 Nystatin (Nystatin) 5 ml QID ORAL 04/26/18 18:00 05/03/18 17:59 04/28/18 13:07 Ondansetron HCl (Zofran) 4 mg Q6H PRN IVP Nausea & Vomiting 04/25/18 07:00 05/20/18 18:59 Polyethylene Glycol (Miralax) 17 gm DAILYPRN PRN ORAL Constipation 04/25/18 19:00 05/20/18 18:59 Prednisone (predniSONE) 5 mg DAILY ORAL 04/28/18 14:00 05/28/18 13:59 04/28/18 13:39 Risperidone (RisperDAL) 1 mg BEDTIME PRN ORAL agitation 04/25/18 21:00 05/21/18 13:44 Lakesha Ratliff M.D. Apr 28, 2018 16:16
[2018-04-28] MEDS ORDERED: PREDNISONE2.5 MG ORAL (16:25)
[2018-04-28] MEDS ORDERED: LEVAQUIN750 MG ORAL (16:29)
[2018-04-28] MEDS ORDERED: NS 275ml ONE (18:59)
[2018-04-28] MEDS ORDERED: Tubing IV Secondary IV ONE (18:59)
--- NOTE | 2018-04-29 01:16 | General Progress Note ---
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 Assessment/Plan risperdal prn raise the head Subjective Neurologic/Psychiatric: Reports: anxiety Allergies: Coded Allergies: No Known Allergies (Unverified , 04/20/18) Subjective the pt is somewhat confused. unchanged Objective Last 24 Hour Vital Signs Date Time Temp Pulse Resp B/P (MAP) Pulse Ox O2 Delivery O2 Flow Rate FiO2 04/28/18 15:41 97.1 100 18 133/77 (95) 98 04/28/18 12:00 98.9 112 19 133/73 (93) 98 04/28/18 09:00 Room Air 04/28/18 08:20 94 112/66 04/28/18 08:00 98.8 100 18 160/78 (105) 98 04/28/18 04:00 97.3 94 20 112/66 (81) 97 Intake and Output 04/28/18 04/29/18 19:00 07:00 Intake Total 480 ml Balance 480 ml Intake Oral 480 ml # Voids 4 Laboratory Tests 04/28/18 05:00: White Blood Count 8.3, Red Blood Count 2.75L, Hemoglobin 8.6L, Hematocrit 25.6L , Mean Corpuscular Volume 93, Mean Corpuscular Hemoglobin 31.4H, Mean Corpuscular Hemoglobin Concent 33.7, Red Cell Distribution Width 13.3, Platelet Count 193, Mean Platelet Volume 7.0, Neutrophils (%) (Auto) 78.1H, Lymphocytes ( %) (Auto) 11.1L, Monocytes (%) (Auto) 9.3, Eosinophils (%) (Auto) 0.5, Basophils (%) (Auto) 1.0, Sodium Level 140, Potassium Level 3.5, Chloride Level 106, Carbon Dioxide Level 26, Anion Gap 8, Blood Urea Nitrogen 27H, Creatinine 0.9, Estimat Glomerular Filtration Rate , Glucose Level 87, Calcium Level 9.0 Height (Feet): 4 Height (Inches): 11.00 Weight (Pounds): 128 General Appearance: no apparent distress, alert Neurologic: responsive, depressed affect Zev Thompson MD Apr 29, 2018 01:16
--- NOTE | 2018-05-02 13:38 | Discharge Summary ---
Discharge Summary Discharge Summary _ DATE OF ADMISSION: 04/20/2018 DATE OF DISCHARGE: 04/28/2018 DISCHARGED BY: Dr. Chow REASON FOR ADMISSION: 83 years old female with past medical history significant for non-Hodgkin's lymphoma, diagnosed in November 2017, status post 3 rounds of chemotherapy and one round of radiation, last chemotherapy 3 weeks ago; history of right-sided laryngeal lymph node status post resection, Hilario palsy on the right side of the face , history of recent otitis media with Pseudomonas infection, about 2 months ago , status post treatment with cefepime for 2 weeks, history of aortic valve replacement, diabetes mellitus type 2, hypertension, presented to the hospital with complaint of generalized weakness ,decreased oral intake, fever and chills. Patient went to see her oncologist Dr. Adler, who was noted her to be very dehydrated . Patient was started on the IV hydration in the office. Patient received a dose of ceftriaxone. While in the office , patient developed fever 102 and chills ; patient subsequently was transferred to the hospital for further evaluation and management. Laboratory workup revealed leukocytosis WBC 12, hemoglobin 10.6, hematocrit 31. Potassium 3.3. BUN 25, creatinine 1.2. Glucose 179. Lactic acid 1.4. Magnesium 1.5. Alkaline phosphatase 242. Troponin negative. Coagulation profile stable. On ABG oxygen saturation was 70% . Urinalysis with evidence of +3 protein, +2 glucose, +1 leukocyte esterase, occasional bacteria only. Influenza screen test was negative. Chest x-ray revealed left basilar atelectasis , no acute process otherwise. EKG revealed supraventricular tachycardia with ventricular rate of 151 and occasional PVC, no ST elevation noted ,nonspecific T wave abnormality Patient admitted with diagnoses of sepsis, dehydration, tachycardia, non- Hodgkin lymphoma, diabetes mellitus type 2, hypertension, anemia, history of right-sided Hilario's palsy. CONSULTANTS: rate reviewer Dr. Coley pulmonary Dr. Negron ID specialist Dr. Eugene psychiatrist [facility] COURSE: Patient admitted to telemetry floor. Patient started on broad-spectrum antibiotics and IV hydration.. Patient remained full code. Patient started on DVT prophylaxis with heparin. Patient was closely followed. Blood culture revealed Pseudomonas aeruginosa. Urine cultures were negative. Influenza screen test was negative. Ear culture was negative. CT of the abdomen and pelvis revealed no acute intra-abdominal process. CT of the internal auditory canal revealed complete opacification of the left mastoid air cells and middle ear cavity, consistent with chronic mastoiditis and chronic otitis media. No evidence of ossicular erosion to suggest cholesteatoma. Complete opacification of the right mastoid air cells, near complete opacification of the middle ear cavity, consistent with chronic mastoiditis and chronic otitis media. No evidence of ossicular erosion to suggest cholesteatoma CT maxillofacial revealed no evidence of facial or tonsillar abscess. Mild nonspecific adenoidal prominence. Echocardiogram revealed echogenic material of the posterior mitral valve leaflets with heavy mitral annulus and aortic valve calcification. Bioprosthetic aortic valve replacement noted. Patient probably had endocarditis. repeated blood culture ( 1 set peripherally and 1 set from babak-cath ) were negative. Daughter desired to hold off on a transesophageal echocardiogram for now , and ID specialist recommended to treat empirically for endocarditis for 6 weeks. Patient was on IV antibiotics with Levaquin and Cefepime for Pseudomonas aeruginosa bacteremia and presumed endocarditis. Patient will require Port-A-Cath removal and line holiday , which was discussed extensively with the daughter at the bedside. Daughter wants her mother to get stronger and wants to take her home and come back in 2 weeks for JOSSELINE and Port-A-Cath removal. Leukocytosis resolved. High-grade fever up to 104.6 -resolved. Political Researcher followed. Echocardiogram revealed preserved ejection fraction of 60% with mild left ventricular hypertrophy. No evidence of wall motion quality. Heavy echogenic material noted on posterior mitral valve leaflets. Bioprosthetic aortic valve replacement noted. Right ventricular systolic pressure of 21. Moderate to severe mitral regurgitation. Second troponin was minimally elevated at 0.068 ; troponin elevation minimal, no complaint of chest pain, no evidence of changes on EKG or telemetry. Patient was continued on medical therapy with beta-stephenie . Blood pressure was managed with beta-stephenie and calcium channel stephenie , dose uptitrated to keep blood pressure under control. Political Researcher recommended to consider JOSSELINE. Patient with history of calcium score of 194 in 2017 and carotid stenosis, status post stent on the right. Supplemental oxygen provided as needed to keep pulse oximetry above 92%. Pulmonary toilet was on standby as needed. Follow-up chest x-ray revealed no definite acute process. Keypuncher followed. Venous duplex bilateral lower extremity revealed no evidence of acute DVT. Patient noted to have a difficulty swallowing. Bedside swallow evaluation revealed evidence of dysphagia. Diet started as per speech therapist recommendations with strict aspiration and reflux precautions and total assistance with all meals. Family declined PEG and wishes to proceed with comfort centered care. Light Armored Vehicle Officer recommendation implemented in plan of care to improve nutritional status. CT of the head revealed age-related volume loss, but was negative for acute intracranial bleeding , mass effect or contrast enhancing lesion. Right ethmoid sinus disease and mastoid disease noted. 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 Patient initially was on the IV fluids. Renal parameters and electrolytes were closely monitored. Electrolytes corrected as needed. Nephrotoxins were avoided. Blood sugar was managed with sliding scale of insulin. Hemoglobin and hematocrit were closely monitored with goal to keep hemoglobin above 7. Prior to discharge hemoglobin 8.6 hematocrit 25.6. Leukocytosis and fever resolved. Patient was cleared for discharge home on antibiotic as per ID specialist recommendation for total of 6 weeks. Daughter was recommended to remove PICC line and need for JOSSELINE. Daughter prefers at this time to take her mother home with home health services to get stronger and focus on comfort care. Patient remains full code. FINAL DIAGNOSES: Severe sepsis with Pseudomonas aeruginosa bacteremia ( possible due to line sepsis) Presumed endocarditis Dehydration Acute kidney injury Non-Hodgkin's lymphoma Chronic right otitis media and mastoiditis , secondary to Pseudomonas aeruginosa , s/p treatment History of shingles, on prophylaxis Hypertension Anemia Recent history of Hilario's palsy, right-sided Coronary artery disease Carotid stenosis, status post stent on the right Status post aortic valve replacement with bioprosthetic valve Diabetes mellitus Dysphagia Protein calorie malnutrition DISCHARGE MEDICATIONS: See Medication Reconciliation list. DISCHARGE INSTRUCTIONS: Patient was discharged home with home health services. Follow up with primary care provider and oncologist. Recommended JOSSELINE and removal of PICC line, Genevieve Darling NP May 02, 2018 13:37
== END 2018-04-28 19:00 | disposition home health service (06) | DRG 720 ==
LOC: EDBD 14:00 → EMR 14:25 → 2W 16:54 → EDBEDREQ 21:20 → 2E 04-21 17:09 → 4E 04-25 06:09
DX: A41.52 Sepsis due to Pseudomonas (principal); R65.21 Severe sepsis with septic shock; N17.9 Acute kidney failure, unspecified; E46 Unspecified protein-calorie malnutrition; C85.91 Non-Hodgkin lymphoma, unspecified, lymph nodes of head, face, and neck; D69.6 Thrombocytopenia, unspecified; I47.1 Supraventricular tachycardia; I38 Endocarditis, valve unspecified; I65.21 Occlusion and stenosis of right carotid artery; E86.0 Dehydration; G51.0 Bell's palsy; I10 Essential (primary) hypertension; E11.9 Type 2 diabetes mellitus without complications; I25.10 Atherosclerotic heart disease of native coronary artery without angina pectoris; H66.91 Otitis media, unspecified, right ear; H70.11 Chronic mastoiditis, right ear; Z95.2 Presence of prosthetic heart valve; R13.10 Dysphagia, unspecified; Z68.25 Body mass index [BMI] 25.0-25.9, adult
CPT/HCPCS: 36415; 36600; 70470; 70481; 70487; 71045; 74177; 80048; 80053; 81003; 82550; 82803; 82962; 83605; 83735; 83880; 84100; 84484; 85007; 85025; 85610; 85651; 85730; 86140; 86710; 87040; 87070; 87081; 87086; 87181; 93005; 93306; 93970; 94664; 96365; 96368; 97802; 99285; J1815